=== PATIENT | female | born 1950 | race Caucasian/White ===

== ENCOUNTER → 2017-10-24 | Outpatient (CLI) | payer BC ==
--- NOTE | 2017-10-25 14:36 | MAMMOGRAPHY REPORT ---
BILATERAL DIGITAL SCREENING MAMMOGRAM TOMOSYNTHESIS WITH CAD: 10/24/2017 CLINICAL HISTORY: Routine screening. TECHNIQUE: Breast tomosynthesis in addition to standard 2D mammography was performed. Current study was also evaluated with a Computer Aided Detection (CAD) system. COMPARISON: Comparison is made to exams dated: 08/23/2016 mammogram, 08/26/2014 mammogram, 08/25/2013 m ammogram, 08/20/2012 mammogram, 07/05/2011 mammogram, and 07/03/2010 mammogram - [facility]. BREAST COMPOSITION: There are scattered areas of fibroglandular density in both breasts. FINDINGS: No suspicious masses, calcifications, or areas of architectural distortion are noted in ei ther breast. There has been no significant interval change compared to prior exams. IMPRESSION: ACR BI-RADS CATEGORY 1: NEGATIVE There is no mammographic evidence of malignancy. A 1 year screening mammogram is recommended. The pa tient will receive written notification of the results. Approximately 10% of breast cancers are not detected with mammography. A negative mammographic report should not delay biopsy if a clinically suggestive mass is present. Deepa Rodriguez M.D. ah/:10/24/2017 12:47:10 Learning Coach: Madonna HUNT(R)(M), [facility] letter sent: Normal 1/2 BI-RADS Code: ACR BI-RADS Category 1: Negative
== END | disposition home or self-care (01) ==
LOC: C.MAMM 09:33
PROVIDERS: ATTEND Family Medicine
DX: Z12.31 Encounter for screening mammogram for malignant neoplasm of breast (principal)

== ENCOUNTER 2024-12-08 12:56 | Inpatient (IN) ==
[2024-12-08 13:32] LABS: Hematocrit (blood only) 38.4 % (37.0-47.0); Hemoglobin 13.6 g/dl (12.0-16.0); Mean Corpuscular Hemoglobin 29.1 pg (25.0-34.0); Mean Corpuscular Hgb Conc 35.4 g/dL (32.0-36.0); Mean Corpuscular Volume 82.1 fL (80.0-100.0); Mean Platelet Volume 9.1 fL (9.4-12.4); Nucleated RBC # (auto) 0.02 K/uL (0.00-0.12); Nucleated RBC % (auto) 0.1 %; Platelet Count 701 K/uL (130-400); RDW Standard Deviation 38.3 fL (36.4-46.3); Red Blood Count 4.68 M/uL (4.20-5.40); White Blood Count 34.81 K/ul (4.8-10.8)
[2024-12-08 13:39] LABS: Albumin Level 3.8 gm/dl (3.4-5.0); Bilirubin,Total 0.6 mg/dl (0.2-1.0); Calcium 9.1 mg/dl (8.6-10.3); Potassium 3.6 mmol/L (3.5-5.1)
[2024-12-08 13:44] LABS: Partial Thromboplastin Ratio 0.9; Partial Thromboplastin Time 23 Seconds (21-31); Prothrombin Time 10.9 Seconds (9.0-12.0)
[2024-12-08 13:45] LABS: Albumin Globulin Ratio 1.2 (0.9-2); BUN Creatinine Ratio 19.1 (10-20); Globulin 3.2 gm/dl (2.5-4.0)
[2024-12-08 13:48] LABS: Basophils # (auto) 0.07 K/uL (0.00-0.20); Basophils % (auto) 0.2 %; Eosinophils # (auto) 0.04 K/uL (0.00-0.50); Eosinophils % (auto) 0.1 %; Immature Granulocytes # (auto) 0.27 K/uL (0.01-0.20); Immature Granulocytes % (auto) 0.8 %; Lymphocytes # (auto) 1.83 K/uL (1.20-3.40); Lymphocytes % (auto) 5.3 %; Monocytes # (auto) 1.94 K/uL (0.11-0.59); Monocytes % (auto) 5.6 %; Neutrophils # (auto) 30.66 K/uL (1.40-6.50)
[2024-12-08 13:50] LABS: Troponin I High Sensitivity 29.4 pg/ml (0-14)
[2024-12-08 13:52] LABS: Acanthocytes 1+; Pappenheimer Bodies 1+; Polychromasia 1+; Schistocytes 1+
--- NOTE | 2024-12-08 13:52 | XRay Report ---
XR chest 1V not portable CLINICAL HISTORY: Chest pain, nonspecific COMPARISON STUDY: None FINDINGS: Single view chest demonstrates patchy airspace opacities in the left lung base suspicious f or infectious or inflammatory infiltrate. There is obscuration of the right cardiophrenic angle which is commonly associated with either fibrosis or fatty deposition. The upper lung zones are hyperlucen t with slight flattening of the diaphragm to the small cardiac silhouette suggesting a component of C OPD. There is no pneumothorax. There is no significant atelectasis. There is no pulmonary vascular co ngestion. Surgical clips are identified in the left upper quadrant and in the right upper quadrant. IMPRESSION: Probable COPD. Patchy left basilar infiltrate suspicious for infectious or inflammatory process. ACT 112: Negative or not required by law. Electronically signed by: Inna Amezcua M.D. 12/08/2024 1:50 PM
[2024-12-08] MEDS: ACETAMINOPHEN 500 MG TAB PO STA (14:04)
[2024-12-08] MEDS: SODIUM CHLORIDE 0.9% 2,000 ML IV ONE (14:06)
[2024-12-08 14:21] LABS: HCO3 VBG 25 mmol/L; Oxygen Saturation VBG < 60.0 %; PCO2 VBG 38 mmHg (38-50); PO2 VBG < 20 mmHg; pH VBG 7.43 (7.36-7.41)
[2024-12-08] MEDS: AZITHROMYCIN 250 MG TAB PO ONE (14:27)
[2024-12-08] MEDS: CEFEPIME 2000MG 2,000 MG/20 ML SYR IV STA (14:28)
[2024-12-08 15:31] LABS: Adenovirus PCR Not Detected (NotDetected); Bordetella parapertussis PCR Not Detected (NotDetected); Bordetella pertussis PCR Not Detected (NotDetected); Chlamydia pneumoniae PCR Not Detected (NotDetected); Coronavirus 229E PCR Not Detected (NotDetected); Coronavirus CoV-2 (COVID19)PCR Not Detected (NotDetected); Coronavirus HKU1 PCR Not Detected (NotDetected); Coronavirus NL63 PCR Not Detected (NotDetected); Coronavirus OC43PCR DETECTED (NotDetected); Human Metapneumovirus PCR Not Detected (NotDetected); Influenza A PCR Not Detected (NotDetected); Influenza B PCR Not Detected (NotDetected); Mycoplasma pneumoniae PCR Not Detected (NotDetected); Parainfluenza Virus 1 PCR Not Detected (NotDetected); Parainfluenza Virus 2 PCR Not Detected (NotDetected); Parainfluenza Virus 3 PCR Not Detected (NotDetected); Parainfluenza Virus 4 PCR Not Detected (NotDetected); Respiratory Syncytial VirusPCR Not Detected (NotDetected); Rhinovirus/Enterovirus PCR Not Detected (NotDetected)
[2024-12-08] MEDS: MAGNESIUM SULFATE / D5W 1 GM/100 ML BAG IV SCH (15:49)
[2024-12-08 16:05] LABS: Appearance Urine Clear (Clear); Bacteria Urine Automated None Seen (None Seen); Bilirubin Urine Negative (Negative); Blood Urine 1+ (Negative); Color Urine Yellow; Epithelial Cell Urine Auto 0-2 /hpf (0-2); Glucose Urine UA Negative (Negative); Hyaline Casts Urine Present /lpf (None Presnt); Ketones Urine Trace (Negative); Leukocyte Esterase Urine 1+ (Negative); Nitrite Urine Negative (Negative); Protein Urine Trace (Negative); RBC Urine Automated 0-2 /hpf (0-2); Specific Gravity Urine 1.015 (1.000-1.030); Urobilinogen Urine Negative (Negative); WBC Urine Automated 0-5 /hpf (0-5); pH Urine 5.5 (4.5-7.5)
--- NOTE | 2024-12-08 16:17 | History & Physical Report ---
Date of Service December 08, 2024 Assessment & Plan (1) Acute sepsis: (2) Left lower lobe pneumonia: (3) Coronavirus infection: (4) Demand ischemia: (5) Hypomagnesemia: (6) COPD suggested by initial evaluation: (7) Hypertension: Plan Patient 74-year-old female presents with acute sepsis with organ dysfunction as evidenced by demand ischemia due to a secondary bacterial left lower lobe pneumonia that most likely initially started as a coronavirus infection. Patient does have imaging suggestive of COPD and would be high risk for further deterioration and requires hospital level care. Admit to the hospital in a monitored setting Antibiotics for community-acquired pneumonia Antitussives and mucolytics Replace magnesium Follow laboratory studies and blood cultures Oxygen as needed Echocardiogram to evaluate cardiac function in the setting of demand ischemia long-term hypertension Continue outpatient medications as ordered Discussed advanced directives with the patient at bedside, conditional code, patient would not want to be intubated History of Present Illness Chief Complaint: Cough, weak, generalized ill feeling Primary Care Provider: Ghislaine Cunningham DO Patient is a 74-year-old female presents to the emergency room with above complaints. In the emergency room was noted to have significant leukocytosis and hypomagnesemia and imaging consistent with a left lower lobe pneumonia. She was referred to our service for inpatient care. Time my evaluation patient is feeling little bit better after 2 L of IV fluids. Current blood pressure initially was low but has responded well to fluid resuscitation. She states about 2 weeks ago she started feeling weak, rundown, headaches, generalized malaise and generalized ill feeling. No real documented fevers but just really did not seem like she was getting much better. 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 In the emergency room her O2 sat was satisfactory on room air but these findings were concerning. Time my evaluation patient denies any shortness of breath. No chest pain. She states that she is had these above complaints. Confirms that she has not had any known fevers. Does have a cough that did just start to have some yellow purulent sputum but no blood in the sputum. Her appetite has been decreased but has been drinking plenty of fluids. No changes in her bowel or bladder habits. No swelling in her hands arms legs or feet. 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 is at bedside and confirms history. Patient does report a very remote history of smoking. Quit 50 years ago. Has never had any formal diagnosis of COPD. She reports that she has never needed inhalers or even needed them when she has had upper respiratory infections. Overall she feels that she is fairly healthy. Treated really only for some high blood pressure. Allergies Allergy/AdvReac Type Severity Reaction Status Date / Time No Known Allergies Allergy Unverified 12/08/24 14:03 Home Medications Medication Instructions Recorded Confirmed Type aspirin 81 mg capsule 81 mg PO DAILY 12/08/24 12/08/24 History atorvastatin 40 mg tablet 40 mg PO HS 12/08/24 12/08/24 History cholecalciferol (vitamin D3) 50 50 mcg PO DAILY 12/08/24 12/08/24 History mcg (2,000 unit) capsule (Vitamin D3) losartan 100 mg tablet 100 mg PO HS 12/08/24 12/08/24 History Past Med/Surg History Problem List (Updated 12/08/24 @ 16:20 by Ralph Chiang DO) COPD suggested by initial evaluation Hypomagnesemia Demand ischemia Coronavirus infection Left lower lobe pneumonia Acute sepsis Dyslipidemia Hypertension Social History (Updated 12/08/24 @ 16:15 by Ralph Chiang DO) Smoking Status: Former smoker Feels Safe at Home: Yes Review of Systems Review of Systems: Pertinent positive and negative review of systems as mentioned in the HPI Physical Exam Physical Exam: Constitutional: Alert, ill in appearance, nontoxic HEENT: Mucous membranes moist. Sclera clear Neck: Soft, no adenopathy Lungs: Decreased breath sounds, prolonged expiratory phase, crackles, rhonchi, rales and dullness in left lower lobe CV: S1-S2, regular, tachycardic Abdomen: Soft, nontender, nondistended Extremities: No significant edema Musculoskeletal: No significant joint tenderness Neuro: No focal deficits Psych: Cooperative, normal mood Results & Data Results & Data Vital Signs (Past 12 Hours) Vital Signs Temp Pulse Pulse Resp BP BP Pulse Ox 12/08/24 15:33 92 12/08/24 15:30 127 H 22 99/61 L 92 12/08/24 15:00 121 H 14 129/55 L 93 12/08/24 14:00 38.7 C H 134 H 26 H 142/76 H 93 12/08/24 12:59 37.8 C H 139 H 20 181/81 H 92 O2 Del Method 12/08/24 15:33 Room Air 12/08/24 15:30 12/08/24 15:00 Room Air 12/08/24 14:00 Room Air 12/08/24 12:59 Room Air Diagnostic Findings Reviewed imaging, laboratory and diagnostic studies. Pertinent findings as below. Personally reviewed chest x-ray, hyperinflated lungs, early developing infiltrate left lower lobe WBCs 34.8 Hemoglobin 13.6 Platelets 701 Venous pH 7.43 Venous pCO2 38 Creatinine 0.94 Magnesium 1.4 Glucose 111 Initial troponin 29.4 Procalcitonin 0.14 Urinalysis negative for signs of infection Viral respiratory panel positive for coronavirus Personally reviewed EKG, sinus tachycardia with no acute ST-T wave changes, occasional PVC
--- NOTE | 2024-12-08 17:16 | Electrocardiogram Report ---
Test Reason : Blood Pressure : */* mmHG Vent. Rate : 129 BPM Atrial Rate : 129 BPM P-R Int : 138 ms QRS Dur : 64 ms QT Int : 272 ms P-R-T Axes : 63 68 82 degrees QTcB Int : 398 ms Sinus tachycardia with occasional Premature ventricular complexes Abnormal ECG No previous ECGs available Confirmed by Mele Matthews ([id number]) on 12/08/2024 5:16:08 PM Referred By: REFERRED SELF Confirmed By: Mele Matthews
[2024-12-08] MEDS ORDERED: POLYETHYLENE (MIRALAX) 17 GM PACK PO PRN (17:36)
[2024-12-08] MEDS ORDERED: ALUMINUM/MAGNESIUM SUSP 30 ML UDC PO PRN (17:36)
[2024-12-08] MEDS: HYDROcodone/HOMATROPINE SYRUP 5MG/1.5MG 5ML UDP PO PRN (18:04)
[2024-12-08] MEDS: cefTRIAXone SODIUM 2,000 MG/50 ML BAG IV SCH (18:12)
--- NOTE | 2024-12-08 19:33 | Emergency Department Note ---
History of Present Illness General Chief Complaint: Shortness of Breath/Dyspnea Stated Complaint: SOB, COUGH, SORE THROAT Time Seen by Provider: 12/08/24 13:48 History of Present Illness Provider Complaint: shortness of breath and cough Onset (ago): week(s) (2) Consistency/Duration: + progressively worsening Relieved By: + nothing Exacerbated By: + exertion and + coughing Context: + recent illness Associated symptoms: + fever, + sputum production and + chest congestion; no orthopnea or no hemoptysis Related Data Home oxygen amount: none Home Medications Medication Instructions Recorded Confirmed Type aspirin 81 mg capsule 81 mg PO DAILY 12/08/24 12/08/24 History atorvastatin 40 mg tablet 40 mg PO HS 12/08/24 12/08/24 History cholecalciferol (vitamin D3) 50 50 mcg PO DAILY 12/08/24 12/08/24 History mcg (2,000 unit) capsule (Vitamin D3) losartan 100 mg tablet 100 mg PO HS 12/08/24 12/08/24 History Allergies Allergy/AdvReac Type Severity Reaction Status Date / Time No Known Allergies Allergy Unverified 12/08/24 14:03 Past Med/Surg History Problem List (Updated 12/08/24 @ 19:41 by Vinny Soriano MD) COPD suggested by initial evaluation (Acute) Hypomagnesemia Demand ischemia Coronavirus infection Left lower lobe pneumonia (Acute) Acute sepsis Medical History Dyslipidemia Hypertension Social History Smoking Status: Never smoker Second Hand Exposure: No; Do You Dip or Chew Tobacco: No; Hx Alcohol Use: Yes Alcohol type: wine Hx Substance Use: No Preferred Language: [employer] Required: No Beliefs That Will Affect Care: None Current Living Situation: Spouse Other Information That Helps Us Care for You: No Feels Safe at Home: Yes Safety Concerns: Feels Safe At This Time Assistive Devices: Glasses Physical Exam 2 Vital Signs: Vital Signs - 24 hr 12/08/24 12:59 12/08/24 14:00 12/08/24 15:00 Temperature 37.8 C H 38.7 C H Temperature Source Temporal Artery Sc an Oral Pulse Rate 139 H Pulse Rate [Left F anuradha] 134 H 121 H Pulse Rhythm Regular Pulse Strength Normal Respiratory Rate 20 26 H 14 Respiratory Effort / Characteristics Non-Labored Sponta neous Respiratory Depth Normal Blood Pressure 181/81 H Blood Pressure [Ri ght Arm] 142/76 H 129/55 L Blood Pressure Taylor n 114 Blood Pressure Taylor n [Right Arm] 98 79 Blood Pressure Pos ition [Right Arm] Sitting Semi-fowlers Pulse Oximetry 92 93 93 Oxygen Delivery Me thod Room Air Room Air Room Air Sepsis Recent Feve r Within 48 Hours No Sepsis New/Unexpla ined Change in Men amee Status N/A Sepsis Action Take n by Nursing No Action Required 12/08/24 15:30 12/08/24 15:33 12/08/24 16:00 Temperature Temperature Source Pulse Rate 123 H Pulse Rate [Left F anuradha] 127 H Pulse Rhythm Pulse Strength Respiratory Rate 22 14 Respiratory Effort / Characteristics Non-Labored Sponta neous Respiratory Depth Normal Blood Pressure 120/56 L Blood Pressure [Ri ght Arm] 99/61 L Blood Pressure Taylor n 76 Blood Pressure Taylor n [Right Arm] 73 Blood Pressure Pos ition [Right Arm] Semi-fowlers Pulse Oximetry 92 92 93 Oxygen Delivery Me thod Room Air Sepsis Recent Feve r Within 48 Hours Sepsis New/Unexpla ined Change in Men amee Status Sepsis Action Take n by Nursing Physical Exam: Physical Exam HENT: Exam performed. - Head: Normocephalic and atraumatic. EYES: Conjunctivae and EOM are normal. Right eye exhibits no discharge. Left eye exhibits no discharge. No scleral icterus. NECK: Normal range of motion. Neck supple. No JVD present. CV: Tachycardia rate, regular rhythm, normal heart sounds and intact distal pulses. There is no peripheral edema. Palpable radial pulses bue. PULM/CHEST: Mild rhonchi bilaterally. ABD: The abdomen is soft. There is no tenderness. NEURO: Motor and sensation grossly intact. SKIN: Skin is warm and dry. He is not diaphoretic. PSYCH: normal mood and affect. Behavior is normal. Judgment and thought content normal. Course Course 1348: The patient was evaluated in room B11. A complete history and physical exam was performed Cardiac monitoring: An order was placed for continuous cardiac monitoring. The monitor shows a rate of 120 with sinus tachycardia rhythm interpreted by me Patient was seen during a time of extreme volume and extreme acuity in the emergency department. Nursing triage protocols were initiated and labs were drawn by protocol in the triage area. Patient tachycardic febrile and labs from triage showed a white blood cell count of 34.8. Sepsis protocols were initiated. 1510: Vital signs stable. Imaging shows left-sided infiltrate. Labs show a white count of 34.81. High-sensitivity troponin elevated. Lactic acid is 2. Magnesium 1.4. [facility] Cefepime and azithromycin ordered for the patient. BioFire pending. Administered Medications Hydrocodone Bit/Homatropine Methylb (Hydrocodone/Homatropine Syrup 5mg/1.5mg 5ml Udp) 5 ml PO Q6H PRN PRN Reason: Cough Stop: 12/22/24 17:35 Last Admin: 12/08/24 18:04 Dose: 5 ml Documented By: JR Magnesium Sulfate/Dextrose (Magnesium Sulfate / D5w) 1 gm in 100 mls @ 50 mls/hr IV Q2H MARCIE Stop: 12/08/24 23:44 Last Admin: 12/08/24 17:53 Dose: 50 mls/hr Documented By: Infusion: 12/08/24 17:53 Dose: Infused Documented By: Admin: 12/08/24 15:49 Dose: 50 mls/hr Documented By: BILL Ceftriaxone Sodium (Rocephin) 2,000 mg in 50 mls @ 100 mls/hr IV Q24H MARCIE; Protocol Stop: 12/13/24 17:59 Last Infusion: 12/08/24 18:48 Dose: Infused Documented By: Admin: 12/08/24 18:12 Dose: 100 mls/hr Documented By: JR Discontinued Medications Acetaminophen (Acetaminophen 500 Mg Tab) 1,000 mg PO NOW STA Stop: 12/08/24 13:28 Last Admin: 12/08/24 14:04 Dose: 1,000 mg Documented By: JUAN Azithromycin (Azithromycin 250 Mg Tab) 500 mg PO NOW ONE Stop: 12/08/24 14:00 Last Admin: 12/08/24 14:27 Dose: 500 mg Documented By: JUAN Sodium Chloride (Nss) 2,000 mls @ 999 mls/hr IV .Q2H1M ONE Stop: 12/08/24 15:47 Last Infusion: 12/08/24 16:21 Dose: Infused Documented By: Admin: 12/08/24 14:06 Dose: 999 mls/hr Documented By: JUAN Cefepime HCl (Maxipime 2000mg) 2,000 mg in 20 mls @ 5 mls/min IV NOW STA; Protocol Stop: 12/08/24 13:50 Last Admin: 12/08/24 14:28 Dose: 5 mls/min Documented By: UJAN Medical Decision Making Laboratory Data Attestation: I reviewed the patient's lab results. 12/08/24 13:10 12/08/24 13:10 Lab Results 12/08/24 12/08/24 12/08/24 Range/Units 13:10 14:13 15:27 WBC 34.81 H* (4.8-10.8) K/ul RBC 4.68 (4.20-5.40) M/uL Hgb 13.6 (12.0-16.0) g/dl Hct 38.4 (37.0-47.0) % MCV 82.1 (80.0-100.0) fL MCH 29.1 (25.0-34.0) pg MCHC 35.4 (32.0-36.0) g/dL RDW Std Deviation 38.3 (36.4-46.3) fL RDW Coeff of Nathaniel 13.0 (11.5-14.5) % Plt Count 701 H (130-400) K/uL MPV 9.1 L (9.4-12.4) fL Immature Gran % (Auto) 0.8 % Neut % (Auto) 88.0 % Lymph % (Auto) 5.3 % [place] % (Auto) 5.6 % Eos % (Auto) 0.1 % Baso % (Auto) 0.2 % Neut # (Auto) 30.66 H (1.40-6.50) K/uL Lymph # (Auto) 1.83 (1.20-3.40) K/uL [place] # (Auto) 1.94 H (0.11-0.59) K/uL Eos # (Auto) 0.04 (0.00-0.50) K/uL Baso # (Auto) 0.07 (0.00-0.20) K/uL Immature Gran # (Auto) 0.27 H (0.01-0.20) K/uL Absolute Nucleated RBC 0.02 (0.00-0.12) K/uL Nucleated RBC % (auto) 0.1 % Polychromasia 1+ Pappenheimer Bodies 1+ Acanthocytes (Spur) 1+ Schistocytes 1+ PT 10.9 (9.0-12.0) Seconds INR 1.0 (0.9-1.1) APTT 23 (21-31) Seconds PTT Ratio 0.9 VBG pH 7.43 H (7.36-7.41) VBG pCO2 38 (38-50) mmHg VBG pO2 < 20 mmHg VBG HCO3 25 mmol/L VBG O2 Saturation < 60.0 % VBG Base Excess 1.0 mEq/L Sodium 140 (136-145) mmol/L Potassium 3.6 (3.5-5.1) mmol/L Chloride 105 (98-107) mmol/L Carbon Dioxide 24 (21-32) mmol/L Anion Gap 11 (3-11) BUN 18 (6-23) mg/dl Creatinine 0.94 (0.6-1.2) mg/dl Est Cr Clr Drug Dosing 48.0 ml/min eGFR 64.07 BUN/Creatinine Ratio 19.1 (10-20) Glucose 111 H (70-99(Fasting)) mg/dl Lactate 2.0 (0.4-2.0) mmol/L Calcium 9.1 (8.6-10.3) mg/dl Magnesium 1.4 L (1.7-2.4) mg/dl Total Bilirubin 0.6 (0.2-1.0) mg/dl AST 24 (13-39) U/L ALT 25 (7-52) U/L Alkaline Phosphatase 94 (34-104) U/L Troponin I High Sens 29.4 H (0-14) pg/ml Total Protein 7.0 (6.0-8.3) gm/dl Albumin 3.8 (3.4-5.0) gm/dl Globulin 3.2 (2.5-4.0) gm/dl Albumin/Globulin Ratio 1.2 (0.9-2) Procalcitonin 0.14 (0-0.5) ng/ml Urine Color Yellow Urine Appearance Clear (Clear) Urine pH 5.5 (4.5-7.5) Ur Specific [place] 1.015 (1.000-1.030) Urine Protein Trace H (Negative) Urine Glucose (UA) Negative (Negative) Urine Ketones Trace H (Negative) Urine Blood 1+ H (Negative) Urine Nitrite Negative (Negative) Urine Bilirubin Negative (Negative) Urine Urobilinogen Negative (Negative) Ur Leukocyte Esterase 1+ H (Negative) Urine WBC (Auto) 0-5 (0-5) /hpf Urine RBC (Auto) 0-2 (0-2) /hpf U Hyaline Cast (Auto) 11-20 H (0-2) /lpf U Epithel Cells (Auto) 0-2 (0-2) /hpf Urine Bacteria (Auto) None Seen (None Seen) Hyaline Casts Present A (None Presnt) /lpf Adenovirus (PCR) Not Detected (NotDetected) B. pertussis DNA (PCR) Not Detected (NotDetected) B.parapertussis DNA PCR Not Detected (NotDetected) C. pneumoniae DNA (PCR) Not Detected (NotDetected) Coronavirus OC43 (PCR) DETECTED A (NotDetected) Coronavirus HKU1 (PCR) Not Detected (NotDetected) Coronavirus 229E (PCR) Not Detected (NotDetected) SARS-CoV-2 (PCR) Not Detected (NotDetected) Coronavirus NL63 (PCR) Not Detected (NotDetected) Human Metapneumovir PCR Not Detected (NotDetected) Influenza Type A (PCR) Not Detected (NotDetected) Influenza Type B (PCR) Not Detected (NotDetected) M. pneumoniae (PCR) Not Detected (NotDetected) Parainfluenza 1 (PCR) Not Detected (NotDetected) Parainfluenza 2 (PCR) Not Detected (NotDetected) Parainfluenza 3 (PCR) Not Detected (NotDetected) Parainfluenza 4 (PCR) Not Detected (NotDetected) RSV (PCR) Not Detected (NotDetected) Entero/Rhino (PCR) Not Detected (NotDetected) 12/08/24 Range/Units 15:46 WBC (4.8-10.8) K/ul RBC (4.20-5.40) M/uL Hgb (12.0-16.0) g/dl Hct (37.0-47.0) % MCV (80.0-100.0) fL MCH (25.0-34.0) pg MCHC (32.0-36.0) g/dL RDW Std Deviation (36.4-46.3) fL RDW Coeff of Nathaniel (11.5-14.5) % Plt Count (130-400) K/uL MPV (9.4-12.4) fL Immature Gran % (Auto) % Neut % (Auto) % Lymph % (Auto) % [place] % (Auto) % Eos % (Auto) % Baso % (Auto) % Neut # (Auto) (1.40-6.50) K/uL Lymph # (Auto) (1.20-3.40) K/uL [place] # (Auto) (0.11-0.59) K/uL Eos # (Auto) (0.00-0.50) K/uL Baso # (Auto) (0.00-0.20) K/uL Immature Gran # (Auto) (0.01-0.20) K/uL Absolute Nucleated RBC (0.00-0.12) K/uL Nucleated RBC % (auto) % Polychromasia Pappenheimer Bodies Acanthocytes (Spur) Schistocytes PT (9.0-12.0) Seconds INR (0.9-1.1) APTT (21-31) Seconds PTT Ratio VBG pH (7.36-7.41) VBG pCO2 (38-50) mmHg VBG pO2 mmHg VBG HCO3 mmol/L VBG O2 Saturation % VBG Base Excess mEq/L Sodium (136-145) mmol/L Potassium (3.5-5.1) mmol/L Chloride (98-107) mmol/L Carbon Dioxide (21-32) mmol/L Anion Gap (3-11) BUN (6-23) mg/dl Creatinine (0.6-1.2) mg/dl Est Cr Clr Drug Dosing ml/min eGFR BUN/Creatinine Ratio (10-20) Glucose (70-99(Fasting)) mg/dl Lactate (0.4-2.0) mmol/L Calcium (8.6-10.3) mg/dl Magnesium (1.7-2.4) mg/dl Total Bilirubin (0.2-1.0) mg/dl AST (13-39) U/L ALT (7-52) U/L Alkaline Phosphatase (34-104) U/L Troponin I High Sens 83.9 H* D (0-14) pg/ml Total Protein (6.0-8.3) gm/dl Albumin (3.4-5.0) gm/dl Globulin (2.5-4.0) gm/dl Albumin/Globulin Ratio (0.9-2) Procalcitonin (0-0.5) ng/ml Urine Color Urine Appearance (Clear) Urine pH (4.5-7.5) Ur Specific [place] (1.000-1.030) Urine Protein (Negative) Urine Glucose (UA) (Negative) Urine Ketones (Negative) Urine Blood (Negative) Urine Nitrite (Negative) Urine Bilirubin (Negative) Urine Urobilinogen (Negative) Ur Leukocyte Esterase (Negative) Urine WBC (Auto) (0-5) /hpf Urine RBC (Auto) (0-2) /hpf U Hyaline Cast (Auto) (0-2) /lpf U Epithel Cells (Auto) (0-2) /hpf Urine Bacteria (Auto) (None Seen) Hyaline Casts (None Presnt) /lpf Adenovirus (PCR) (NotDetected) B. pertussis DNA (PCR) (NotDetected) B.parapertussis DNA PCR (NotDetected) C. pneumoniae DNA (PCR) (NotDetected) Coronavirus OC43 (PCR) (NotDetected) Coronavirus HKU1 (PCR) (NotDetected) Coronavirus 229E (PCR) (NotDetected) SARS-CoV-2 (PCR) (NotDetected) Coronavirus NL63 (PCR) (NotDetected) Human Metapneumovir PCR (NotDetected) Influenza Type A (PCR) (NotDetected) Influenza Type B (PCR) (NotDetected) M. pneumoniae (PCR) (NotDetected) Parainfluenza 1 (PCR) (NotDetected) Parainfluenza 2 (PCR) (NotDetected) Parainfluenza 3 (PCR) (NotDetected) Parainfluenza 4 (PCR) (NotDetected) RSV (PCR) (NotDetected) Entero/Rhino (PCR) (NotDetected) Imaging Data Attestation: I personally reviewed and interpreted this imaging study as follows: My Impression: Chest x-ray: Left-sided infiltrate Radiologist's Impression: Chest X-Ray 12/08/24 13:02 XR chest 1V not portable CLINICAL HISTORY: Chest pain, nonspecific COMPARISON STUDY: None FINDINGS: Single view chest demonstrates patchy airspace opacities in the left lung base suspicious for infectious or inflammatory infiltrate. There is obscuration of the right cardiophrenic angle which is commonly associated with either fibrosis or fatty deposition. The upper lung zones are hyperlucent with slight flattening of the diaphragm to the small cardiac silhouette suggesting a component of COPD. There is no pneumothorax. There is no significant atelectasis. There is no pulmonary vascular congestion. Surgical clips are identified in the left upper quadrant and in the right upper quadrant. IMPRESSION: Probable COPD. Patchy left basilar infiltrate suspicious for infectious or inflammatory process. ACT 112: Negative or not required by law. Electronically signed by: Inna Amezcua M.D. 12/08/2024 1:50 PM ECG Data Attestation: I personally reviewed and interpreted this ECG as follows: Interpretation: EKG #1 at 1307: Sinus tachycardia with a rate of 129. TX 138 QRS [address] elevation or ST depression. PVCs present. There is significant baseline wander and artifact. EKG #2 at 1402: Sinus tachycardia with rate of 117. TX 130 QRS [address] elevation or ST depression. [facility] Narrative 1348: The patient was evaluated in room B11. A complete history and physical exam was performed Cardiac monitoring: An order was placed for continuous cardiac monitoring. The monitor shows a rate of 120 with sinus tachycardia rhythm interpreted by me Patient was seen during a time of extreme volume and extreme acuity in the emergency department. Nursing triage protocols were initiated and labs were drawn by protocol in the triage area. Patient tachycardic febrile and labs from triage showed a white blood cell count of 34.8. Sepsis protocols were initiated. 1510: Vital signs stable. Imaging shows left-sided infiltrate. Labs show a white count of 34.81. High-sensitivity troponin elevated. Lactic acid is 2. Magnesium 1.4. [facility] Cefepime and azithromycin ordered for the patient. BioFire pending. Impression & Plan Left lower lobe pneumonia, COPD suggested by initial evaluation Discharge Plan Visit Data Chief Complaint: Shortness of Breath/Dyspnea Stated Complaint: SOB, COUGH, SORE THROAT ED Provider: Vinny Soriano Discharge Problem: Left lower lobe pneumonia, COPD suggested by initial evaluation Patient Disposition: Admitted As Inpatient Discharge Instructions Interventions: ED Discharge Assessment Last Done: 12/08/24 17:13
[2024-12-08] MEDS: ALBUT/IPRATROP 3MG/0.5MG NEB 3 ML VIAL NEB SCH (19:41)
[2024-12-08] MEDS: LOSARTAN POTASSIUM 50 MG TAB PO SCH (20:08)
[2024-12-08] MEDS: ATORVASTATIN 40 MG TAB PO SCH (20:08)
[2024-12-08] MEDS: DOXYCYCLINE HYCLATE 100 MG CAP PO SCH (20:08)
[2024-12-08] MEDS: guaiFENesin 600 MG TABCR PO SCH (20:08)
--- OUTSIDE RECORDS SUMMARY | 2024-12-08 20:54 | External Medical Summary | Summary of Care ---
Author Name Unknown Organization [facility] Address [address] [place] [address] Phone [phone] Care Team Providers Care Electrolysist Name Role Phone AdilsonGhislaine tay Ken WARD Primary Care Provider [phone] Reason for Visit * Reason Onset Date Comments Medication Administration prolia Medication Administration 09/08/2024 Prolia * Precert (Within 30 days (routine)) - Closed Specialty Diagnoses / Procedures Referred By Contac t Referred To Contact Rheumatology Diagnoses Age-related osteoporosis without current pathological fracture Procedures [place] DENOSUMAB INJECTION Jovanny Vazquez MD [facility] [place] [address] Phone: tel: fax: Jovanny Vazquez MD [address] [place] [address] [place] [address] Phone: tel: fax: Referral ID Status Reason Start Date Expiration Date V isits Requested Visits Authorized [id number] Closed Precert 02/05/2024 02/03/2025 2 2 Encounter Details Date Type Department Care Team (Late st Contact Info) Description 09/08/2024 9:30 AM EST Nurse Only Rheumatology [place] [id number] Geoff Mcnamara [place] [address] Pf, Nurse Rheum [facility] [place] [address] Medication Administration (prolia); Medica... Allergies No known active allergiesdocumented as of this encounter (statuses as of 09/08/2024) Medications aspirin enteric coated 81 MG TBECIndications:H TN, goal below 140/90 Take 1 Tablet by mouth in the morning. 100 Tab 3 7 Active Denosumab 60 MG/ML Subcutaneous Solution Inject 60 mg under the skin once. Active Cetirizine HCl 10 MG Oral Tablet (ZyrTEC)Indicatio ns:Idiopathic urticaria Take 1 Tab by mouth daily. 90 Tab 3 1 Active Triamcinolone Acetonide 0.1 % External Cream (Aristocort) 3 Active Vitamin D 50 MCG (1999 UT) Oral Capsule Take 2,000 Units by mouth in the morning. Active hydrOXYzine HCl 25 MG Oral TabletIndications :Pruritic dermatitis Take 1 tablet by mouth every 6 hours if needed for itching. 40 Tablet 3 4 Active Losartan Potassium 100 MG Oral Tablet (Cozaar)Indicatio ns:HTN, goal below 140/90 TAKE 1 TABLET BY MOUTH ONCE DAILY 90 Tablet 1 4 Active Atorvastatin Calcium 40 MG Oral Tablet (Lipitor)Indicati ons:Dyslipidemia, goal LDL below 130 TAKE 1 TABLET BY MOUTH EVERY MORNING 90 Tablet 3 4 Active documented as of this encounter (statuses as of 09/08/2024) Active Problems Problem Noted Date Diagnosed Date HTN, goal below 140/90 02/08/2017 Dyslipidemia, goal LDL below 130 01/10/2017 High risk for fracture due to osteoporosis by DE XA scan 09/30/2015 documented as of this encounter (statuses as of 09/08/2024) Resolved Problems Problem Noted Date Diagnosed Date Resolved Date Senile osteoporosis 10/18/2020 01/07/20 24 Prediabetes 12/03/2017 12/18/2018 Overview: Per Prediabetes protocol #1 Well adult exam 03/27/2017 12/18/2018 Overview (03/27/2017): 04/06 colonoscopy 1mm polyp PATH PEND Non-toxic multinodular goiter 12/26/2011 12/18/2018 documented as of this encounter (statuses as of 09/08/2024) Immunizations Name Administration Dates Next Due COVID-19 mRNA, LNP-s, No Pre serve, 2-Dose Series (Pfizer) 01/07/2021,12/17/2020 Meningococcal B, OMV AJD, 2- Dose Series (BEXSERO) 12/26/2021,03/15/2020,12/25/2019 Meningococcal MCV4O Conjugat e Vaccine (Menveo) 01/01/2023 Pneumococcal Conjugate Vacc, 13 Valent (Prevnar) 02/08/2017 Pneumococcal Polysaccharide PPV23 (Pneumovax) 12/18/2018 Seasonal Influenza Vac., MDV , IM, 0.5 mL (Fluzone) 08/17/2014 Seasonal Influenza, High Dos e, Trivalent, PF, IM (Fluzone HD) 08/07/2024 Seasonal Influenza, PF, 6 M & above, IM , (FluLaval or Fluzone) 08/28/2018,08/17/2017 Seasonal Influenza, Quadriva lent Hd (Fluzone Hd) 08/02/2023,07/28/2022,07/13/2021 Seasonal Influenza, Quadriva lent Hd, 65+ Yrs 07/28/2020 Seasonal Influenza, Quadriva lent, No Preserve, IM 07/10/2019,08/04/2016,08/30/2015 TDAP (age 10 and older)(Boostrix) 02/21/2019 Varicella Zoster Vaccine (Adult) 07/10/2019,02/19 Zoster Vaccine Recombinant (Shingrix) 11/27/2019 ,07/10/2019 documented as of this encounter Social History Tobacco Use Types Packs/Day Years Used Date Smoking Tobacco: Former Cigarettes 0.5 30 1 11/21/1976 - 09/20/2007 Smokeless Tobacco: Never Tobacco Cessation:Counseling Given: Not Answered Alcohol Use Standard Drinks/Week Comments No 0 (1 standard drink = 0.6 oz pur e alcohol) PHQ-2 Answer Date Recorded PHQ Adult Total Score 0 07/29/2023 Hunger Vital Sign Answer Date Recorded Within the past 12 months, y ou worried that your food would run out before you got the money to buy more. Never true 07/24/20 22 Within the past 12 months, t he food you bought just didn't last and you didn't have money to get more. Never true 07/24/2022 Comments No Sex and Gender Information Value Date Recorded Sex Assigned at Female 07/24/2022 9:00 AM EDT Legal Sex Female 5:26 AM EST Gender Identity Female 07/24/2022 9:00 AM EDT Sexual Orientation Straight 07/24/2022 9: 00 AM EDT Occupation Industry Job Start Date Job End Date Retired Not on file Not on file Not on file documented as of this encounter Last Filed Vital Signs Vital Sign Reading Time Taken Comments Blood Pressure - - Pulse - - Temperature 36.4 C (97.5 F) 09/08/2024 9:11 AM ES T Respiratory Rate - - Oxygen Saturation - - Inhaled Oxygen Concentration - - Weight - - Height - - Body Mass Index - - documented in this encounter Patient Instructions * Patient Instructions* Essence Echevarria LPN - 09/08/2024 9:15 AM EST MEDICATION GUIDE Prolia (WV-dante-a) (denosumab) Injection Read the Medication Guide that comes with Prolia before you start taking it and each time you get arefill. There may be new information. This Medication Guide does not take the place of talking withyour doctor about your medical condition or treatment. Talk to your doctor if you have any questions about Prolia. What is the most important information I should know about Prolia? Prolia can cause serious side effects includin. Low calcium levels in your blood (hypocalcemia). Prolia may lower the calcium levels in your blood. If you have low blood calcium before you start receiving Prolia, it may get worse during treatment. Your low blood calcium must be treated before you receive Prolia. Most people with low blood calcium levels do not have symptoms, but some people may have symptoms. Call your doctor right away if you have symptoms of low blood calcium such as: Spasms, twitches, or cramps in your muscles Numbness or tingling in your fingers, toes, or around your mouth Your doctor may prescribe calcium and vitamin D to help prevent low calcium levels in your blood while you take Prolia. Take calcium and vitamin D as your doctor tells you to. 2. Serious infections. Serious infections in your skin, lower stomach area (abdomen), bladder, or ear may happen if you take Prolia. Inflammation of the inner lining of the heart (endocarditis) due to an infection also mayhappen more often in people who take Prolia. You may need to go to the hospital for treatment if you develop an infection. Prolia is a medicine that may affect your immune system. People who have weakened immune system or take medicines that affect the immune system may have an increased risk for developing serious infections. Call your doctor right away if you have any of the following symptoms of infection: Fever or chills Skin that looks red or swollen and is hot or tender to touch Severe abdominal pain Frequent or urgent need to urinate or burning feeling when you urinate 3. Skin problems. Skin problems such as inflammation of your skin (dermatitis), rash, and eczema may happen if you take Prolia. Call your doctor if you have any of the following symptoms of skin problems that do not go away or get worse: Redness Itching Small bumps or patches (rash) Your skin is dry or feels like leather Blisters that ooze or become crusty Skin peeling 4. Severe jaw bone problems (osteonecrosis). Severe jaw bone problems may happen when you take Prolia. Your doctor should examine your mouth before you start Prolia. Your doctor may tell you to see your dentist before you start Prolia. It is important for you to practice good mouth care during treatment with Prolia. Call your doctor right away if you have any of these side effects. What is Prolia? Prolia is a prescription medicine used to treat osteoporosis (thinning and weakening of bone) in women after menopause (change of life) who Have an increased risk for fractures (broken bones). Cannot use another osteoporosis medicine or other osteoporosis medicines did not work well. Who should not receive Prolia? Do not take Prolia if you have been told by your doctor that your blood calcium level is too low. What should I tell my doctor before receiving Prolia? Before taking Prolia, tell your doctor if you: Have low blood calcium. Cannot take daily calcium and vitamin D. Had parathyroid or thyroid surgery (glands located in your neck). Have been told you have trouble absorbing minerals in your stomach or intestines (malabsorptionsyndrome). Have kidney problems or are on kidney dialysis. Plan to have dental surgery or teeth removed. Are or plan to become . Prolia may harm your unborn baby. Tell your doctor right away if you become while taking Prolia. Surveillance Program: Prolia is not intended for use in women. If you become while taking Prolia, talk to your doctor about enrolling with [employer] or call (g-049-92-[facility]). The purpose of this program is to collect information about women who have become while taking Prolia. Are breast-feeding or plan to breast-feed. It is not known if Prolia passes into your breast milk. You and your doctor should decide if you will take Prolia or breast-feed. You should not do both. Tell your doctor about all the medicines you take, including prescription and nonprescription drugs, vitamins, and herbal supplements. Know the medicines you take. Keep a list of medicines with you to show to your doctor or pharmacistwhen you get a new medicine. How will I receive Prolia? Prolia is an injection that will be given to you by a healthcare professional. Prolia is injected under your skin (subcutaneous). You will receive Prolia 1 time every 6 months. You should take calcium and vitamin D as your doctor tells you to while you receive Prolia. If you miss a dose of Prolia, you should receive your injection as soon as you can. Take good care of your teeth and gums while you receive Prolia. Bliss and floss your teeth regularly. Tell your dentist that you are receiving Prolia before you have dental work. What are the possible side effects of Prolia? Prolia may cause serious side effects. See What is the most important information I should know about Prolia? Long-term effects on bone: It is not known if the use of Prolia over a long period of time may cause slow healing of broken bones or unusual fractures. The most common side effects of Prolia are: Back pain Pain in your arms and legs High cholesterol Muscle pain Bladder infection These are not all the possible side effects of Prolia. For more information, ask your doctor or pharmacist. Call your doctor for medical advice about side effects. You may report side effects to FDA at 1-084-AOW-5559. How should I handle Prolia if I need to pick it up from a pharmacy? Keep Prolia in a refrigerator at 36F to 46F (2C to 8C) in the original carton. Do not freeze Prolia. When you remove Prolia from the refrigerator, Prolia must be kept at room temperature [up to 77F (25C)] in the original carton and must be used within 14 days. Do not keep Prolia at temperatures above 77F (25C). Warm temperatures will affect how Prolia works. Do not shake Prolia. Keep Prolia in the original carton to protect from light. Keep Prolia and all medicines out of reach of children. General information about Prolia Do not give Prolia to other people even if they have the same symptoms that you have. It may harm them. This Medication Guide summarizes the most important information about Prolia. If you would like more information, talk with your doctor. You can ask your doctor or pharmacist for information about Prolia that is written for health professionals. For more information, go to www.[employer] or call [employer] at . What are the ingredients in Prolia? Active ingredient: denosumab Inactive ingredients: sorbitol, acetate, polysorbate 20 (prefilled syringe only), Water for Injection ([facility]URSING HOME), and sodium hydroxide What is osteoporosis? Osteoporosis is a disease in which the bones become thin and weak, increasing the chance of having a broken bone. Osteoporosis usually causes no symptoms until a fracture happens. The most common fractures are in the spine (backbone). They can shorten height, even without causing pain. Over time, the spine can become curved or deformed and the body bent over. Fractures from osteoporosis can also happen in almost any bone in the body, for example: the wrist, rib, or hip. Once you have had a fracture, the chance for more fractures greatly increases. The following risk factors increase your chance of getting fractures from osteoporosis: Past broken bones from osteoporosis Very low bone mineral density (BMD) Frequent falls Limited movement, such as using a wheelchair Medical conditions likely to cause bone loss, such as some kinds of arthritis Taking steroid medicines called glucocorticoids, such as prednisone Other medicines that may cause bone loss, for example: seizure medicines (such as phenytoin), blood thinners (such as heparin), high doses of vitamin A What can I do to treat osteoporosis? There are many steps you can take to treat osteoporosis. Taking Prolia, along with calcium and vitamin D, may be one option for you. [employer] [place], [place] [address] This Medication Guide has been approved by the US Food and Drug Administration. 1xxxxxx - v1 Issued: 03/2010 documented in this encounter Progress Notes * Essence Echevarria LPN - 09/08/2024 9:[address] presents today for administration of Prolia. She understands the benefits and risksof this treatment. An educational pamphlet was given to the patient. Prolia 60 mg was administered subcutaneously. The patient tolerated the procedure without problems. She will return in 6 months for the next injection and evaluation. Essence Echevarria LPN documented in this encounter Nursing Notes * Essence Echevarria LPN - 09/08/2024 9:11 AM EST Chief Complaint Patient presents with Medication Administration prolia Patient denies being on any antibiotics, no current infections, no upcoming surgeries or dental procedures, no open wounds or sores, no current fractures. documented in this encounter Plan of Treatment Upcoming Encounters Date Type Department Care Team (Late st Contact Info) Description 01/12/2025 8:00 AM EDT Office Visit Family Practice [facility] [address] [place] [address] Ghislaine Cunningham DO [address] [place] [address] 03/10/2025 10:00 AM EDT Office Visit Rheumatology [place] [id number] [facility] [place] [address] Elizabeth Conklin CRNP [address] [place] [address] [place] [address] 07/05/2025 1:00 PM EDT Imaging Radiology, [address] [place], [place] [address] Scheduled Procedures Name Priority Associated Diagnoses Date/Ti me COLONOSCOPY FLEXIBLE PROXIMA L DIAGNOSTIC Recall History of colonic polyps Health Maintenance Due Date Last Done Comments Cologuard 1996 Sigmoidoscopy 1996 Fecal Occult Blood Test 10/27/2017 10/27/2016 MENINGOCOCCAL (MENACTRA/MENVEO) (2 - Risk 2-dose series) 02/26/2023 01/01/2023 Meningitis B Vaccine (Bexsero/Trumemba) (4 of 4 - Increased Risk Bexsero 2-dose series) 12/27/2023 12/26/2021, 03/15/2020, 12/25/2019 COVID-19 Vaccine ( season) 2024 01/07/2021, 12/17/2020 Adult Wellness Visit 07/29/2024 07/29/2023, 07/24/2022, 05/22/2021 Depression Screening 07/29/2024 07/29/2023 GFR 01/24/2025 01/25/2024, 0 05/2023, 04/10/2022, Additional history exists Mammogram 02/04/2025 02/05/2024, 06/22, 07/14/2021, Additional history exists DXA Scan 06/04/2025 06/04/2023, 05/21, 05/11/2019, Additional history exists Albumin/Creatinine Ratio 07/24/2025 07/24/2022 Colonoscopy 04/27/2027 04/27/2022, 070 05/2022, 03/27/2017, Additional history exists Colorectal Cancer Screening 04/27/2027 Lipid Panel 01/24/2029 01/25/2024, 040 05/2023, 04/10/2022, Additional history exists DTap/Tdap Vaccines (2 - Td or Tdap) 02/21/2029 02/21/2019 Pneumococcal Vaccine: 65+ Years Completed 12/18/2018, 02/08/2017 Zoster Vaccines Completed 11/27/2019, 06/22, 07/10/2019, Additional history exists RETIRED - COLONOSCOPY-EVERY 5 YRS AGES 18-100 Discontinued 04/27/2022, 04/27/2022, 03/27/2017, Additional history exists VITAMIN D LEVEL ONCE IN A LIFETIME-USE SMARTSET# [id number] Completed 02/28/2024, 01/26/2023, 05/08/2021, Additional history exists Influenza Vaccine (FLU shot) Completed 08/07/2024, 08/02/2023, 07/28/2022, Additional history exists HPV (Gardasil) Vaccine Aged Out No lo nger eligible based on patient's age to complete this topic Hepatitis B Vaccine Aged Out No longe r eligible based on patient's age to complete this topic documented as of this encounter Medical Devices Not on filedocumented as of this encounter Visit Diagnoses Diagnosis Senile osteoporosis- Primary documented in this encounter Administered Medications Inactive Administered Medications - up to 3 most recent administrations Medication Order MAR Action Action Date Dose Rate Site Denosumab (Prolia) subcut inj 60 mg 60 mg, Subcutaneous, ONCE, On Sat09/08/24 at 0930, For 1 doseIndications:Senile osteoporosis Given 09/08/2024 9:20 AM EST 60 mg Arm Left Upper documented in this encounter Care Teams Electrolysist Relationship Specialty Start Date End Date Ghislaine Cunningham DO [address] [place] [address] PCP - General Family Medicine 04/14/15 documented as of this encounter
--- OUTSIDE RECORDS SUMMARY | 2024-12-08 20:55 | External Medical Summary | Summary of Care ---
Author Name Unknown Organization [facility] Address [address] [facility] [place] [address] Phone [phone] Care Team Providers Care Manager Intermediate Name Role Phone Ghislaine Cunningham DO Primary Care Provider Encounter Details Date Type Department Care Team (Late st Contact Info) Description 08/07/2024 9:20 AM EDT Immunization Ancillary [address] [place] [address] [place] [address] [place] [address] Arrived Allergies No known active allergiesdocumented as of this encounter (statuses as of 08/07/2024) Medications Medication Sig Dispensed Refills Start Date End Date Status aspirin enteric coated 81 MG TBECIndications:HTN, goal below 140/90 Take 1 Tablet by mouth in the morning. 100 Tab 3 09/24/2017 Active Denosumab 60 MG/ML Subcutaneous Solution Inject 60 mg under the skin once. Active Cetirizine HCl 10 MG Oral Tablet (ZyrTEC)Indications:Id iopathic urticaria Take 1 Tab by mouth daily. 90 Tab 3 06/08/2021 Active Triamcinolone Acetonide 0.1 % External Cream (Aristocort) 01/17/2023 Active Vitamin D 50 MCG (2000 UT) Oral Capsule Take 2,000 Units by mouth in the morning. Active Atorvastatin Calcium 40 MG Oral Tablet (Lipitor)Indications:D yslipidemia, goal LDL below 130 TAKE 1 TABLET BY MOUTH EVERY MORNING 90 Tablet 1 03/24/2024 Active hydrOXYzine HCl 25 MG Oral TabletIndications:Prur itic dermatitis Take 1 tablet by mouth every 6 hours if needed for itching. 40 Tablet 3 05/14/2024 Active Losartan Potassium 100 MG Oral Tablet (Cozaar)Indications:HT N, goal below 140/90 TAKE 1 TABLET BY MOUTH ONCE DAILY 90 Tablet 1 07/20/2024 Active documented as of this encounter (statuses as of 08/07/2024) Active Problems Problem Noted Date Diagnosed Date HTN, goal below 140/90 02/08/2017 Dyslipidemia, goal LDL below 130 01/10/2017 High risk for fracture due to osteoporosis by DE XA scan 09/30/2015 documented as of this encounter (statuses as of 08/07/2024) Resolved Problems Problem Noted Date Diagnosed Date Resolved Date Senile osteoporosis 10/18/2020 01/07/20 24 Prediabetes 12/03/2017 12/18/2018 Overview: Per Prediabetes protocol #1 Well adult exam 03/27/2017 12/18/2018 Overview: 04/06 colonoscopy 1mm polyp PATH PEND Non-toxic multinodular goiter 12/26/2011 12/18/2018 documented as of this encounter (statuses as of 08/07/2024) Immunizations Name Administration Dates Next Due COVID-19 [...] 1 [birth year]/21/1976 - 09/20/2007 Smokeless Tobacco: Never Alcohol Use Standard Drinks/Week Comments No 0 [...] money to get more. Never true 07/24/2022 Sex and Gender Information Value Date Recorded Sex Assigned at Female 07/24/2022 9:00 AM EDT Gender Identity Female 07/24/2022 9:00 AM EDT Sexual Orientation Straight 07/24/2022 9: 00 AM EDT Job Start Date Occupation Industry Not on file Not on file Not on file documented as of this encounter Plan of Treatment Upcoming Encounters Date Type Department Care Team (Late st Contact Info) Description 09/08/2024 9:30 AM EST Nurse Only Rheumatology [place] [id number] [place] [address] Pf, Nurse Rheum [facility] [place] [address] 01/12/2025 8:00 AM EDT Office Visit Family Practice [address] [place] [address] Ghislaine Cunningham DO [address] [place] [address] 07/05/2025 1:00 PM EDT Imaging Radiology, [place] [id number] [facility] [place] [address] Scheduled Procedures Name Priority Associated Diagnoses Date/Ti me COLONOSCOPY FLEXIBLE PROXIMA L DIAGNOSTIC Recall History of colonic polyps Health Maintenance Due Date Last Done Comments Cologuard 1996 Sigmoidoscopy 1996 Fecal Occult Blood Test 10/27/2017 10/27/2016 MENINGOCOCCAL (MENACTRA/MENVEO) (2 - Risk 2-dose series) 02/26/2023 01/01/2023 Meningitis B Vaccine (Bexsero/Trumemba) (4 of 4 - Increased Risk Bexsero 2-dose series) 12/27/2023 12/26/2021, 03/15/2020, 12/25/2019 COVID-19 Vaccine (3 - season) 2024 01/07/2021, 12/17/2020 Influenza Vaccine (FLU shot) (#1) 2024 08/07/2024, 08/02/2023, 07/28/2022, Additional history exists Adult Wellness Visit 07/29/2024 07/29/2023, 07/24/2022, 05/22/2021 Depression Screening 07/29/2024 07/29/2023 GFR 01/24/2025 01/25/2024, 040 05/2023, 04/10/2022, Additional history exists Mammogram 02/04/2025 02/05/2024, 06/22, 07/14/2021, Additional history exists DXA Scan 06/04/2025 06/04/2023, 05/21, 05/11/2019, Additional history exists Albumin/Creatinine Ratio 07/24/2025 07/24/2022 Colonoscopy 04/27/2027 04/27/2022, 07/0 05/2022, 03/27/2017, Additional history exists Colorectal Cancer Screening 04/27/2027 Lipid Panel 01/24/2029 01/25/2024, 05/2023, 04/10/2022, Additional history exists DTap/Tdap Vaccines (2 - Td or Tdap) 02/21/2029 02/21/2019 Pneumococcal Vaccine: 65+ Years Completed 12/18/2018, 02/08/2017 Zoster Vaccines Completed 11/27/2019, 06/22, 07/10/2019, Additional history exists RETIRED - COLONOSCOPY-EVERY 5 YRS AGES 18-100 Discontinued 04/27/2022, 04/27/2022, 03/27/2017, Additional history exists VITAMIN D LEVEL ONCE IN A LIFETIME-USE SMARTSET# [id number] Completed 02/28/2024, 01/26/2023, 05/08/2021, Additional history exists HPV (Gardasil) Vaccine Aged Out No lo nger eligible based on patient's age to complete this topic Hepatitis B Vaccine Aged Out No longe r eligible based on patient's age to complete this topic documented as of this encounter Medical Devices Not on filedocumented as of this encounter Care Teams Manager Intermediate Relationship Specialty Start Date End Date Ghislaine Cunningham DO [address] [place] [address] PCP - General Family Medicine 04/14/15 documented as of this encounter
--- OUTSIDE RECORDS SUMMARY | 2024-12-08 20:55 | External Medical Summary | Summary of Care ---
Author Name Unknown Organization [facility] Address [address] [facility] [place] [address] Phone [phone] Care Team Providers Care Unit Receptionist Name Role Phone AdilsonGhislaine tay Ken WARD Primary Care Provider [phone] Encounter Details Date Type Department Care Team (Late st Contact Info) Description 07/02/2024 Telephone Rheumatology [facility] [address] [place] [address] Elizabeth Conklin CRNP [address] [place] [address] Allergies No known active allergiesdocumented as of this encounter (statuses as of 07/06/2024) Medications Medication Sig Dispensed Refills Start Date [...] Units by mouth in the morning. Active Losartan Potassium 100 MG Oral Tablet (Cozaar)Indications:HT N, goal below 140/90 TAKE 1 TABLET BY MOUTH ONCE DAILY 90 Tablet 1 01/14/2024 Active Atorvastatin Calcium 40 MG Oral Tablet (Lipitor)Indications:D yslipidemia, goal LDL below 130 TAKE 1 TABLET BY MOUTH EVERY MORNING 90 Tablet 1 03/24/2024 Active hydrOXYzine HCl 25 MG Oral TabletIndications:Prur itic dermatitis Take 1 tablet by mouth every 6 hours if needed for itching. 40 Tablet 3 05/14/2024 Active documented as of this encounter (statuses as of 07/06/2024) Active Problems Problem Noted Date Diagnosed Date HTN, goal below 140/90 02/08/2017 Dyslipidemia, goal LDL below 130 01/10/2017 High risk for fracture due to osteoporosis by DE XA scan 09/30/2015 documented as of this encounter (statuses as of 07/06/2024) Resolved Problems Problem Noted Date Diagnosed Date Resolved Date Senile osteoporosis 10/18/2020 01/07/20 24 Prediabetes 12/03/2017 12/18/2018 Overview: Per Prediabetes protocol #1 Well adult exam 03/27/2017 12/18/2018 Overview: 04/06 colonoscopy 1mm polyp PATH PEND Non-toxic multinodular goiter 12/26/2011 12/18/2018 documented as of this encounter (statuses as of 07/06/2024) Immunizations Name Administration Dates Next Due COVID-19 mRNA, LNP-s, No Pre serve, 2-Dose Series (Pfizer) 01/07/2021,12/17/2020 Meningococcal B, OMV AJD, 2- Dose Series (BEXSERO) 12/26/2021,03/15/2020,12/25/2019 Meningococcal MCV4O Conjugat e Vaccine (Menveo) 01/01/2023 Pneumococcal Conjugate Vacc, 13 Valent (Prevnar) 02/08/2017 Pneumococcal Polysaccharide PPV23 (Pneumovax) 12/18/2018 Seasonal Influenza, PF, 6 M & above, IM , (FluLaval or Fluzone) 08/28/2018,08/17/2017 Seasonal Influenza, Quadriva lent Hd (Fluzone Hd) 08/02/2023,07/28/2022,07/13/2021 Seasonal Influenza, Quadriva lent Hd, 65+ Yrs 07/28/2020 Seasonal Influenza, Quadriva lent, No Preserve, IM 07/10/2019,08/04/2016,08/30/2015 Seasonal Influenza, Trivalen t, (IIV3), with Preserv, (Fluzone) 08/17/2014 TDAP (age 10 and older)(Boostrix) 02/21/2019 Varicella [...] on file documented as of this encounter Miscellaneous Notes * Telephone Encounter - Lorraine Garcia OSA - 07/06/2024 10:48 AM EDT LMOM for patient to call to schedule dexa. * Telephone Encounter - Elizabeth Conklin CRNP - 07/02/2024 4:17 PM EDT Please contact patient to schedule DEXA scan on or after 06/04/2025. documented in this encounter Plan of Treatment Upcoming Encounters Date Type Department Care Team (Late st Contact Info) Description 07/31/2024 9:00 AM EDT [facility] [address] [place] [address] [place], Nurse Annual Wellness [place] [address] [place] [address] 09/08/2024 9:30 AM EST Nurse Only Rheumatology [address] [place] [address] Pf, Nurse Rheum [address] [place] [address] [place] [address] 01/12/2025 8:00 AM EDT Office Visit Family Practice [facility] [address] [place] [address] Ghislaine Cunningham DO [address] [place] [address] Scheduled Orders Name Type Priority Associated Diagnoses Orde r Schedule DEXA SCAN/BONE MINERAL AXIAL Medical Imaging Routine Senile osteoporosis Expected: 07/05/2025, Expires: 08/01/2025 Scheduled Procedures Name Priority Associated Diagnoses Date/Ti [...] 12/17/2020 Influenza Vaccine (FLU shot) (#1) 2024 08/02/2023, 07/28/2022, 07/13/2021, Additional history exists Adult Wellness Visit 07/29/2024 07/29/2023, 07/24/2022, 05/22/2021 Depression Screening 07/29/2024 07/29/2023 GFR 01/24/2025 01/25/2024, 04/0 05/2023, 04/10/2022, Additional history exists Mammogram 02/04/2025 02/05/2024, 06/22, 07/14/2021, Additional history exists DXA Scan 06/04/2025 06/04/2023, 05/21, 05/11/2019, Additional history exists Albumin/Creatinine Ratio 07/24/2025 07/24/2022 Colonoscopy 04/27/2027 04/27/2022, 07/0 05/2022, 03/27/2017, Additional history exists Colorectal Cancer Screening 04/27/2027 Lipid Panel 01/24/2029 01/25/2024, 04/0 05/2023, 04/10/2022, Additional history exists DTap/Tdap Vaccines (2 - Td or Tdap) 02/21/2029 02/21/2019 Pneumococcal Vaccine: 65+ Years Completed 12/18/2018, 02/08/2017 Zoster Vaccines Completed 11/27/2019, 06/22, 07/10/2019, Additional history exists RETIRED - COLONOSCOPY-EVERY 5 YRS AGES 18-100 Discontinued 04/27/2022, 04/27/2022, 03/27/2017, Additional history exists VITAMIN D LEVEL ONCE IN A LIFETIME-USE SMARTSET# [id number] Completed 02/28/2024, 01/26/2023, 05/08/2021, Additional history exists [...] Senile osteoporosis- Primary documented in this encounter Care Teams Unit Receptionist Relationship Specialty Start Date End Date Ghislaine Cunningham DO [address] [place] [address] PCP - General Family Medicine 04/14/15 documented as of this encounter
--- OUTSIDE RECORDS SUMMARY | 2024-12-08 20:55 | External Medical Summary | Summary of Care ---
Author Name Unknown Organization [facility] Address [address] [facility] [place] [address] Phone [phone] Care Team Providers Care Network Strategist Name Role Phone Alberto Palma DO Primary Care Provider [phone] Reason for Visit * Reason Comments eRx-Medication Refill Encounter Details Date Type Department Care Team (Late st Contact Info) Description 08/07/2024 Refill Family Practice [facility] [address] [place] [address] Alberto Palma DO [address] [place] [address] Dyslipidemia, goal LDL below 130 Allergies No known active allergiesdocumented as of this encounter (statuses as of 08/09/2024) Medications Medication Sig Dispensed Refills Start Date End Date Status aspirin enteric coated 81 MG TBECIndications:HT N, goal below 140/90 Take 1 Tablet by mouth in the morning. 100 Tab 3 09/24/2017 Active Denosumab 60 MG/ML Subcutaneous Solution Inject 60 mg under the skin once. Active Cetirizine HCl 10 MG Oral Tablet (ZyrTEC)Indication s:Idiopathic urticaria Take 1 Tab by mouth daily. 90 Tab 3 06/08/2021 Active Triamcinolone Acetonide 0.1 % External Cream (Aristocort) 01/17/2023 Active Vitamin D 50 MCG (2000 UT) Oral Capsule Take 2,000 Units by mouth in the morning. Active hydrOXYzine HCl 25 MG Oral TabletIndications: Pruritic dermatitis Take 1 tablet by mouth every 6 hours if needed for itching. 40 Tablet 3 05/14/2024 Active Losartan Potassium 100 MG Oral Tablet (Cozaar)Indication s:HTN, goal below 140/90 TAKE 1 TABLET BY MOUTH ONCE DAILY 90 Tablet 1 07/20/2024 Active Atorvastatin Calcium 40 MG Oral Tablet (Lipitor)Indicatio ns:Dyslipidemia, goal LDL below 130 TAKE 1 TABLET BY MOUTH EVERY MORNING 90 Tablet 3 08/09/2024 Active Atorvastatin Calcium 40 MG Oral Tablet (Lipitor)Indicatio ns:Dyslipidemia, goal LDL below 130 TAKE 1 TABLET BY MOUTH EVERY MORNING 90 Tablet 1 03/24/2024 08/09/2024 Discontinued documented as of this encounter (statuses as of 08/09/2024) Active Problems Problem Noted Date Diagnosed Date HTN, goal below 140/90 02/08/2017 Dyslipidemia, goal LDL below 130 01/10/2017 High risk for fracture due to osteoporosis by DE XA scan 09/30/2015 documented as of this encounter (statuses as of 08/09/2024) Resolved Problems Problem Noted Date Diagnosed Date Resolved Date Senile osteoporosis 10/18/2020 01/07/20 24 Prediabetes 12/03/2017 12/18/2018 Overview: Per Prediabetes protocol #1 Well adult exam 03/27/2017 12/18/2018 Overview: 04/06 colonoscopy 1mm polyp PATH PEND Non-toxic multinodular goiter 12/26/2011 12/18/2018 documented as of this encounter (statuses as of 08/09/2024) Immunizations Name Administration Dates Next Due COVID-19 [...] encounter Miscellaneous Notes * Telephone Encounter - Margoth Villaseñor, [facility] - 08/09/2024 3:28 PM EDT Signed Prescriptions: Disp Refills Atorvastatin Calcium 40 MG Oral Tablet (Li*90 Tab*3 Sig: TAKE 1 TABLET BY MOUTH EVERY MORNING Authorizing Provider: ALBERTO PALMA Ordering User: MARGOTH VILLASEÑOR Electronically signed by Margoth Villaseñor [facility] at 08/09/2024 3:28 PM EDT * Telephone Encounter - Interface, [facility] In[facility] - 08/09/2024 11:30 AM EDT Pending Prescriptions: Disp Refills Atorvastatin Calcium 40 MG Oral Tablet [Ph*90 Tab*0 Sig: TAKE 1 TABLET BY MOUTH EVERY MORNING documented in this encounter Plan of Treatment Upcoming Encounters Date Type Department Care Team (Late st Contact Info) Description 09/08/2024 9:30 AM EST Nurse Only Rheumatology [address] [place] [address] Pf, Nurse Rheum [facility] [place] [address] 01/12/2025 8:00 AM EDT Office Visit Family Practice [facility] [address] [place] [address] Alberto Palma, [address] [place] [address] 07/05/2025 1:00 PM EDT Imaging Radiology, [place] [address] Geoff Mcnamara [place] [address] Scheduled Procedures Name Priority Associated Diagnoses Date/Ti [...] 12/27/2023 12/26/2021, 03/15/2020, 12/25/2019 COVID-19 Vaccine ( - season) 2024 01/07/2021, 12/17/2020 Adult Wellness Visit [...] D LEVEL ONCE IN A LIFETIME-USE SMARTSET# [id number] Completed 02/28/2024, 01/26/2023, 05/08/2021, Additional history exists [...] as of this encounter Visit Diagnoses Diagnosis Dyslipidemia, goal LDL below 130 Other and unspecified hyperlipidemia documented in this encounter Care Teams Network Strategist Relationship Specialty Start Date End Date Alberto Palma DO [address] [place] [address] PCP - General Family Medicine 04/14/15 documented as of this encounter
--- OUTSIDE RECORDS SUMMARY | 2024-12-08 20:55 | External Medical Summary | Summary of Care ---
Author Name Unknown Organization [facility] Address [address] [place] [address] Phone [phone] Care Team Providers Care Flooring Mechanic Name Role Phone HerbertAlberto england Primary Care Provider [phone] Reason for Visit * Reason Comments Skin Check Pt here for annual f ull body skin check, pt denies any specific issues or concerns at this time.Last FBSE 06/28/23. Hx: SCC, SKs Encounter Details Date Type Department Care Team (Late st Contact Info) Description 06/29/2024 2:00 PM EDT Office Visit Dermatology [facility] [address] [facility] [place] [address] Sim Neil MD [address] [place] [address] Actinic skin damage*; Seborrheic keratoses; Scar; Hx of squamous cell carcinoma; Actinic keratosis Allergies No known active allergiesdocumented as of this encounter (statuses as of 06/29/2024) Medications Medication Sig Dispensed Refills Start Date [...] (Aristocort) 01/17/2023 Active Vitamin D 50 MCG (1999) Oral Capsule Take 2,000 Units by mouth [...] as of this encounter (statuses as of 06/29/2024) Active Problems Problem Noted Date Diagnosed Date HTN, goal below 140/90 02/08/2017 Dyslipidemia, goal LDL below 130 01/10/2017 High risk for fracture due to osteoporosis by DE XA scan 09/30/2015 documented as of this encounter (statuses as of 06/29/2024) Resolved Problems Problem Noted Date Diagnosed Date Resolved Date Senile osteoporosis 10/18/2020 01/07/20 24 Prediabetes 12/03/2017 12/18/2018 Overview: Per Prediabetes protocol #1 Well adult exam 03/27/2017 12/18/2018 Overview: 04/06 colonoscopy 1mm polyp PATH PEND Non-toxic multinodular goiter 12/26/2011 12/18/2018 documented as of this encounter (statuses as of 06/29/2024) Immunizations Name Administration Dates Next Due COVID-19 [...] on file documented as of this encounter Progress Notes * Sim Neil MD - 06/29/2024 2:00 PM EDT SUBJECTIVE: Chief Complaint: Chief Complaint Patient presents with Skin Check Pt here for annual full body skin check, pt denies any specific issues or concerns at this time. Last FBSE 06/28/23. Hx: SCC, SKs HPI: Agatha Lane is a 74 year old female seen for a full skin check for history of nonmelanoma skin cancer. No spots of concern today DERMATOLOGIC HISTORY: 2020 SCC mid upper back REVIEW OF SYSTEMS: CONSTITUTIONAL: negative SKIN: No new or changing moles or rashes other than those noted in HPI HEME/LYMPH: No new or enlarging lumps or bumps OBJECTIVE: GEN: Healthy, alert, no distress, appears oriented, pleasant, and cooperative SKIN: Detailed exam of hair, face, trunk, arms, and legs Right nasal sidewall, nasal dorsum - x2 gritty erythematous macules/papules Well-healed scar(s) at primary site(s) without evidence of recurrence Scattered on face, chest, back - diffuse mottled hypopigmented and hyperpigmented macules without significant irregularity. Associated telangiectasias At the trunk and extremities are several scattered rahman/brown hyperkeratotic stuck on appearing waxypapules. ASSESSMENT/PLAN: /Actinic keratosis -The diagnosis and malignant potential of the lesion was explained. Treatment options were reviewedincluding cryotherapy, topical medications, and observation. All questions were addressed. Procedure - Cryotherapy (Premalignant Destruction) -The patient would like to proceed with cryosurgery;Cryosurgery explained to the patient, consent obtained, patient, site and procedure verified, and then cryotherapy was performed with Liquid Nitrogen via cryo spray unit to 2 lesions. Location noted in physical exam. Post op course explained. -Discussed that if any of these lesions fail to completely resolve after treatment patient should call me for re-evaluation Scar(s), History of Nonmelanoma Skin Cancer - Well healed scar(s) with no evidence of recurrence - Recommended periodic skin exams and instructed to call clinic if patient notices any changing lesions, including rapid enlargement, changes in color or shape or symptoms, bleeding, or other concerns. The common features and behavior of non-melanoma skin cancers (e.g. basal cell carcinoma/squamouscell carcinoma) as well as the features of melanoma were also reviewed. -Daily sun protection recommended including physical (i.e. clothing) and chemical blockers. Broad spectrum sunscreens with at least SPF 30 for UVA and UVA protection were recommended. Chronic Actinic Damage - Discussed that skin changes are due to chronic sun exposure. - Daily sun protection recommended as discussed above Seborrheic keratoses - The benign nature of these lesions was discussed with the patient and that no treatment is indicated today. Sim Neil MD REF: SELF NO STRE[address] ADDRESS AVAILABLE PCP: ALBERTO PALMA [address] [place] [address] [phone] documented in this encounter Nursing Notes * Elda Sosa CMA - 06/29/2024 1:40 PM EDT Chief Complaint Patient presents with Skin Check Pt here for annual full body skin check, pt denies any specific issues or concerns at this time. Last FBSE 06/28/23. Hx: SCC, SKs documented in this encounter Plan of Treatment Upcoming Encounters Date Type Department Care Team (Late st Contact Info) Description 07/31/2024 9:00 AM EDT Nurse Only Ancillary [facility] [address] [place] [address] Kofi, Nurse Annual Wellness [place] [address] [place] [address] 09/08/2024 9:30 AM EST Nurse Only Rheumatology [facility] [address] [facility] [place] [address] Pf, Nurse Rheum [address] [facility] [place] [address] 01/12/2025 8:00 AM EDT Office Visit Family Practice [facility] [address] [place] [address] Alberto Palma DO [address] [place] [address] Scheduled Procedures Name Priority Associated Diagnoses Date/Ti [...] 12/26/2021, 03/15/2020, 12/25/2019 COVID-19 Vaccine (3 - 2022- season) 2024 01/07/2021, 12/17/2020 Influenza Vaccine (FLU shot) (#1) 2024 08/02/2023, 07/28/2022, 07/13/2021, Additional history exists Adult Wellness Visit 07/29/2024 07/29/2023, 07/24/2022, 05/22/2021 Depression Screening 07/29/2024 07/29/2023 GFR 01/24/2025 01/25/2024, 04/0 05/2023, 04/10/2022, Additional history exists Mammogram 02/04/2025 02/05/2024, 06/22, 07/14/2021, Additional history exists DXA Scan 06/04/2025 06/04/2023, 05/21, 05/11/2019, Additional history exists Albumin/Creatinine Ratio 07/24/2025 07/24/2022 Colonoscopy 04/27/2027 04/27/2022, 05/2022, 03/27/2017, Additional history exists Colorectal Cancer Screening 04/27/2027 Lipid Panel 01/24/2029 01/25/2024, 0 05/2023, 04/10/2022, Additional history exists DTap/Tdap Vaccines (2 - Td or Tdap) 02/21/2029 02/21/2019 Pneumococcal Vaccine: 65+ Years Completed 12/18/2018, 02/08/2017 Zoster Vaccines Completed 11/27/2019, 06/22, 07/10/2019, Additional history exists RETIRED - COLONOSCOPY-EVERY 5 YRS AGES 18-100 Discontinued 04/27/2022, 04/27/2022, 03/27/2017, Additional history exists VITAMIN D LEVEL ONCE IN A LIFETIME-USE SMARTSET# [id number] Completed 02/28/2024, 01/26/2023, 05/08/2021, Additional history exists HPV (Gardasil) Vaccine Aged Out No lo nger eligible based on patient's age to complete this topic Hepatitis B Vaccine Aged Out No longe r eligible based on patient's age to complete this topic documented as of this encounter Medical Devices Not on filedocumented as of this encounter Visit Diagnoses Diagnosis Actinic skin damage- Primary Other dermatitis due to solar radiation Seborrheic keratoses Scar Scar condition and fibrosis of skin Hx of squamous cell carcinoma Personal history of malignant neoplasm of other site Actinic keratosis documented in this encounter Care Teams Flooring Mechanic Relationship Specialty Start Date End Date Alberto Palma DO [address] [place] [address] PCP - General Family Medicine 04/14/15 documented as of this encounter
--- OUTSIDE RECORDS SUMMARY | 2024-12-08 20:55 | External Medical Summary | Summary of Care ---
Author Name Unknown Organization [facility] Address [address] [facility] [place] [place] [address] Phone [phone] Care Team Providers Care Curriculum Designer Name Role Phone HerbertGhislaine england Primary Care Provider Reason for Visit * Reason Onset Date Comments Pre Cert/Prior Auth 09/07/2024 Oop cost for prolia Order Request 09/07/2024 prolia Encounter Details Date Type Department Care Team (Late st Contact Info) Description 09/07/2024 Telephone Rheumatology [facility] [address] [facility] [place] [address] Elizabeth Conklin CRNP [address] [place] [address] [place] [address] Pre Cert/Prior Auth (Oop cost for prolia);... Allergies No known active allergiesdocumented as of this encounter (statuses as of 09/07/2024) Medications aspirin enteric coated 81 MG TBECIndications:H [...] (Aristocort) 3 Active Vitamin D 50 MCG (2000 UT) [...] EVERY MORNING 90 Tablet 3 4 Active Hospital, Clinic, or Other Facility Administered Medication Ordered Dose Route Frequency Start Date End Date Status Denosumab (Prolia) subcut inj 60 mgIndications:Senile osteoporosis 60 mg SC ONCE 09/08/2024 09/08/2024 Active documented as of this encounter (statuses as of 09/07/2024) Active Problems Problem Noted Date Diagnosed Date HTN, goal below 140/90 02/08/2017 Dyslipidemia, goal LDL below 130 01/10/2017 High risk for fracture due to osteoporosis by DE XA scan 09/30/2015 documented as of this encounter (statuses as of 09/07/2024) Resolved Problems Problem Noted Date Diagnosed Date Resolved Date Senile osteoporosis 10/18/2020 01/07/20 24 Prediabetes 12/03/2017 12/18/2018 Overview: Per Prediabetes protocol #1 Well adult exam 03/27/2017 12/18/2018 Overview (03/27/2017): 04/06 colonoscopy 1mm polyp PATH PEND Non-toxic multinodular goiter 12/26/2011 12/18/2018 documented as of this encounter (statuses as of 09/07/2024) Immunizations Name Administration Dates Next Due COVID-19 [...] encounter Miscellaneous Notes * Telephone Encounter - Elizabeth Conklin CRNP - 09/07/2024 12:50 PM EST Reviewed and signed. * Telephone Encounter - Anita Shook LPN - 09/07/2024 11:55 AM EST Chart reviewed and labs noted to be within normal limits. Patient has been seen within the last 12 months by a Rheumatology provider. Prolia authorization approved and updated in referral. Last injection has been > 6 months and 1 day. CAM orders pended for signature. Thank you! * Telephone Encounter - Anita Shook LPN - 09/07/2024 11:06 AM EST Patient has an upcoming appointment to receive prolia. Please notify patient of any oop cost. Supervised by Dr. Jovanny Vazquez, getting prolia at Thank you! documented in this encounter Plan of Treatment Upcoming Encounters Date Type Department Care Team (Late st Contact Info) Description 09/08/2024 9:30 AM EST Nurse Only Rheumatology [address] [place] [address] Pf, Nurse Rheum [facility] [facility] [place] [address] 01/12/2025 8:00 AM EDT Office Visit Family Practice [facility] [address] [place] [address] Ghislaine Cunningham DO [address] [place] [address] 07/05/2025 1:00 PM EDT Imaging Radiology, [facility] [address] [facility] [place] [address] Scheduled Procedures Name Priority Associated Diagnoses [...] D LEVEL ONCE IN A LIFETIME-USE SMARTSET# [id number] Completed 02/28/2024, 01/26/2023, 05/08/2021, Additional history exists [...] Primary documented in this encounter Care Teams Curriculum Designer Relationship Specialty Start Date End Date Ghislaine Cunningham DO [address] [place] [address] PCP - General Family Medicine 04/14/15 documented as of this encounter
--- OUTSIDE RECORDS SUMMARY | 2024-12-08 20:55 | External Medical Summary | Summary of Care ---
Author Name Unknown Organization [facility] Address [address] [facility] [place] [address] Phone [phone] Care Team Providers Care Therapy Manager Name Role Phone Alberto Palma DO Primary Care Provider [phone] Reason for Visit * Reason Comments eRx-Medication Refill Encounter Details Date Type Department Care Team (Late st Contact Info) Description 07/17/2024 Refill Family Practice [facility] [address] [place] [address] Alberto Palma DO [address] [place] [address] HTN, goal below 140/90 Allergies No known active allergiesdocumented as of this encounter (statuses as of 07/20/2024) Medications Medication Sig Dispensed Refills Start Date [...] 03/24/2024 Active hydrOXYzine HCl 25 MG Oral TabletIndications: Pruritic dermatitis Take 1 tablet by mouth every 6 hours if needed for itching. 40 Tablet 3 05/14/2024 Active Losartan Potassium 100 MG Oral Tablet (Cozaar)Indication s:HTN, goal below 140/90 TAKE 1 TABLET BY MOUTH ONCE DAILY 90 Tablet 1 07/20/2024 Active Losartan Potassium 100 MG Oral Tablet (Cozaar)Indication s:HTN, goal below 140/90 TAKE 1 TABLET BY MOUTH ONCE DAILY 90 Tablet 1 01/14/2024 07/20/2024 Discontinued documented as of this encounter (statuses as of 07/20/2024) Active Problems Problem Noted Date Diagnosed Date HTN, goal below 140/90 02/08/2017 Dyslipidemia, goal LDL below 130 01/10/2017 High risk for fracture due to osteoporosis by DE XA scan 09/30/2015 documented as of this encounter (statuses as of 07/20/2024) Resolved Problems Problem Noted Date Diagnosed Date Resolved Date Senile osteoporosis 10/18/2020 01/07/20 24 Prediabetes 12/03/2017 12/18/2018 Overview: Per Prediabetes protocol #1 Well adult exam 03/27/2017 12/18/2018 Overview: 04/06 colonoscopy 1mm polyp PATH PEND Non-toxic multinodular goiter 12/26/2011 12/18/2018 documented as of this encounter (statuses as of 07/20/2024) Immunizations Name Administration Dates Next Due COVID-19 [...] encounter Miscellaneous Notes * Telephone Encounter - Terry Garner [facility] - 07/20/2024 10:01 AM EDT Signed Prescriptions: Disp Refills Losartan Potassium 100 MG Oral Tablet (Coz*90 Tab*1 Sig: TAKE 1 TABLET BY MOUTH ONCE DAILY Authorizing Provider: ALBERTO PALMA Ordering User: TERRY GARNER * Telephone Encounter - Interface, [facility] - 07/19/2024 7:46 PM EDT Pending Prescriptions: Disp Refills Losartan Potassium 100 MG Oral Tablet [Pha*90 Tab*0 Sig: TAKE 1 TABLET BY MOUTH ONCE DAILY documented in this encounter Plan of Treatment Upcoming Encounters Date Type Department Care Team (Late st Contact Info) Description 07/31/2024 9:00 AM EDT Nurse Only Ancillary [facility] [address] [facility] [place] [address] Kofi, Nurse [facility] [address] [facility] [place] [address] 09/08/2024 9:30 AM EST Nurse Only Rheumatology [address] [place] [address] Pf, Nurse Rheum [address] [place] [address] [place] [address] 01/12/2025 8:00 AM EDT Office Visit Family Practice [facility] [address] [facility] [place] [address] Alberto Palma, DO [address] [facility] [place] [address] 07/05/2025 1:00 PM EDT Imaging Radiology, [address] [place], [place] [address] Scheduled Procedures Name Priority Associated [...] Vaccine ( - season) 2024 01/07/2021, 12/17/2020 Influenza Vaccine [...] D LEVEL ONCE IN A LIFETIME-USE SMARTSET# [id number] Completed 02/28/2024, 01/26/2023, 05/08/2021, Additional history exists HPV (Gardasil) Vaccine Aged Out No lo nger eligible based on patient's age to complete this topic Hepatitis B Vaccine Aged Out No longe r eligible based on patient's age to complete this topic documented as of this encounter Medical Devices Not on filedocumented as of this encounter Visit Diagnoses Diagnosis HTN, goal below 140/90 Unspecified essential hypertension documented in this encounter Care Teams Therapy Manager Relationship Specialty Start Date End Date Alberto Palma DO [address] [place] [address] PCP - General Family Medicine 04/14/15 documented as of this encounter
[2024-12-09] MEDS: ACETAMINOPHEN 325 MG TAB PO PRN (00:14)
[2024-12-09] MEDS: ASPIRIN 81 MG ECTAB PO SCH (07:50)
--- NOTE | 2024-12-09 08:58 | Hospitalist Progress Note ---
Date of Service December 09, 2024 Assessment & Plan (1) Acute sepsis: (2) Left lower lobe pneumonia: (3) Coronavirus infection: (4) Demand ischemia: (5) Hypomagnesemia: (6) COPD suggested by initial evaluation: (7) Hypertension: Plan per admitting service notes with addendum: Patient 74-year-old female presents with acute sepsis with organ dysfunction as evidenced by demand ischemia due to a secondary bacterial left lower lobe pneumonia that most likely initially started as a coronavirus infection. Patient does have imaging suggestive of COPD and would be high risk for further deterioration and requires hospital level care. Admit to the hospital in a monitored setting Antibiotics for community-acquired pneumonia Antitussives and mucolytics Replace magnesium Follow laboratory studies and blood cultures Oxygen as needed Echocardiogram to evaluate cardiac function in the setting of demand ischemia long-term hypertension Continue outpatient medications as ordered Discussed advanced directives with the patient at bedside, conditional code, patient would not want to be intubated 12/09 Sepsis secondary to LLL pneumonia, Coronavirus infection Hypoxia, resolved clinically improving off O2 supplement afebrile WBC still 30k Blood cultures: pending Sputum culture: pending continue Ceftri + Doxy Duoneb QID add Hypertonic Saline BID continue Mucinex, IS and Flutter valve Troponin elevation likely Demand Ischemia no cardiac symptoms Trop normalized echo: pending Microscopic Hematuria will need repeat UA as outpatient Further work up, management, and ff up as outpatient Hypertension continue Losartan SC Lovenox Disposition pending lives at home with family Admission and Anticipated Discharge Date Admission Date: December 08, 2024 Subjective ff up for pneumonia, L lower lobe, coronavirus infection, etc seen resting in bed, comfortable off O2 supplement states she feels somewhat improved compared to yesterday still has cough with scant sputum no shortness of breath no chest pain no fever/chills appetite slowly improving no other symptoms Review of Systems Review of Systems: all noted and negative except for above Physical Exam Physical Exam: General- oriented x 3, not in distress, speaks in sentences with no effort or accessory muscle use Eyes- anicteric Neck- no JVD Lungs- R lung: clear L Lung: mild rhonchi at the base Heart- normal rate, regular rhythm; no murmurs Abdomen- normal bowel sounds, nondistended, soft, nontender Extremities- no pretibial edema, no calf tenderness Neuro- alert, oriented x 3; no gross focal neurologic deficits Skin- warm & dry Results & Data Results & Data Vital Signs (Past 12 Hours) Vital Signs Temp Pulse Pulse Resp BP Pulse Ox O2 Del Method 12/09/24 07:47 36.6 C 80 20 113/66 97 Nasal Cannula 12/09/24 07:27 99 H 17 98 Room Air 12/09/24 06:46 82 12/09/24 04:15 36.7 C 81 20 91/55 L 95 Nasal Cannula 12/09/24 00:31 36.7 C 89 20 94/55 L 98 Nasal Cannula 12/08/24 22:52 82 12/08/24 21:23 Nasal Cannula O2 Flow Rate 12/09/24 07:47 12/09/24 07:27 12/09/24 06:46 12/09/24 04:15 2 12/09/24 00:31 2 12/08/24 22:52 12/08/24 21:23 2 all noted and reviewed including below
[2024-12-09 09:37] LABS: Hematocrit (blood only) 33.7 % (37.0-47.0); Hemoglobin 11.6 g/dl (12.0-16.0); Mean Corpuscular Hemoglobin 29.2 pg (25.0-34.0); Mean Corpuscular Hgb Conc 34.4 g/dL (32.0-36.0); Mean Corpuscular Volume 84.9 fL (80.0-100.0); Mean Platelet Volume 9.8 fL (9.4-12.4); Nucleated RBC # (auto) 0.02 K/uL (0.00-0.12); Nucleated RBC % (auto) 0.1 %; Platelet Count 597 K/uL (130-400); RDW Coefficient of Variation 13.2 % (11.5-14.5); RDW Standard Deviation 40.7 fL (36.4-46.3); Red Blood Count 3.97 M/uL (4.20-5.40); White Blood Count 37.83 K/ul (4.8-10.8)
[2024-12-09 09:57] LABS: BUN Creatinine Ratio 21.5 (10-20); Basophils % (auto) 0.3 %; Calcium 8.1 mg/dl (8.6-10.3); Creatinine Clr Calc Pharmacy 69.4 ml/min; Echinocytes 2+; Eosinophils # (auto) 0.05 K/uL (0.00-0.50); Eosinophils % (auto) 0.1 %; Immature Granulocytes # (auto) 0.37 K/uL (0.01-0.20); Lymphocytes # (auto) 3.39 K/uL (1.20-3.40); Magnesium 2.6 mg/dl (1.7-2.4); Monocytes # (auto) 2.09 K/uL (0.11-0.59); Monocytes % (auto) 5.5 %; Neutrophils # (auto) 31.83 K/uL (1.40-6.50); Neutrophils % (auto) 84.1 %; Potassium 3.7 mmol/L (3.5-5.1)
[2024-12-09 11:11] LABS: BUN Creatinine Ratio 22.2 (10-20); Calcium 7.8 mg/dl (8.6-10.3); Creatinine Clr Calc Pharmacy 71.6 ml/min; Potassium 3.4 mmol/L (3.5-5.1)
[2024-12-09] MEDS: POTASSIUM CHLORIDE CRTAB 20 MEQ TABCR PO STA (11:55)
[2024-12-09] MEDS: BENZONATATE 100 MG CAPSULE PO PRN (11:55)
--- NOTE | 2024-12-09 11:56 | Electrocardiogram Report ---
Test Reason : Blood Pressure : */* mmHG Vent. Rate : 80 BPM Atrial Rate : 80 BPM P-R Int : 152 ms QRS Dur : 72 ms QT Int : 382 ms P-R-T Axes : 68 46 66 degrees QTcB Int : 440 ms Normal sinus rhythm Normal ECG Confirmed by Mele Matthews ([id number]) on 12/09/2024 11:56:29 AM Referred By: REFERRED SELF Confirmed By: Mele Matthews
[2024-12-09] MEDS: ENOXAPARIN INJ 40 MG/0.4 ML SYR SQ SCH (13:21)
--- NOTE | 2024-12-09 13:34 | Electrocardiogram Report ---
Test Reason : Blood Pressure : */* mmHG Vent. Rate : 117 BPM Atrial Rate : 117 BPM P-R Int : 130 ms QRS Dur : 70 ms QT Int : 282 ms P-R-T Axes : 56 59 82 degrees QTcB Int : 393 ms Sinus tachycardia Abnormal ECG When compared with ECG of 08-Dec-2024 13:07, Premature ventricular complexes are no longer Present Confirmed by Mele Matthews ([id number]) on 12/09/2024 1:34:40 PM Referred By: REFERRED SELF Confirmed By: Mele Matthews
[2024-12-09] MEDS: SODIUM CHLOR 7% 4 ML NEB NEB SCH (20:05)
[2024-12-10 06:05] LABS: Basophils % (auto) 0.5 %; Eosinophils # (auto) 0.11 K/uL (0.00-0.50); Eosinophils % (auto) 0.5 %; Hematocrit (blood only) 31.9 % (37.0-47.0); Hemoglobin 11.2 g/dl (12.0-16.0); Immature Granulocytes # (auto) 0.19 K/uL (0.01-0.20); Immature Granulocytes % (auto) 0.9 %; Lymphocytes # (auto) 2.33 K/uL (1.20-3.40); Lymphocytes % (auto) 11.3 %; Mean Corpuscular Hemoglobin 29.1 pg (25.0-34.0); Mean Corpuscular Hgb Conc 35.1 g/dL (32.0-36.0); Mean Corpuscular Volume 82.9 fL (80.0-100.0); Monocytes % (auto) 8.2 %; Neutrophils # (auto) 16.28 K/uL (1.40-6.50); Neutrophils % (auto) 78.6 %; Nucleated RBC # (auto) 0.03 K/uL (0.00-0.12); Nucleated RBC % (auto) 0.1 %; Platelet Count 535 K/uL (130-400); RDW Coefficient of Variation 13.2 % (11.5-14.5); RDW Standard Deviation 39.4 fL (36.4-46.3); Red Blood Count 3.85 M/uL (4.20-5.40); White Blood Count 20.71 K/ul (4.8-10.8)
[2024-12-10 06:49] LABS: BUN Creatinine Ratio 17.9 (10-20); Calcium 8.1 mg/dl (8.6-10.3); Creatinine Clr Calc Pharmacy 80.5 ml/min; Potassium 4.4 mmol/L (3.5-5.1)
[2024-12-10] MEDS ORDERED: ALBUT/IPRATROP 3MG/0.5MG NEB 3 ML VIAL NEB PRN (11:48)
--- NOTE | 2024-12-10 18:51 | Hospitalist Progress Note ---
Date of Service December 10, 2024 delayed entry date of service noted above Assessment & Plan (1) Acute sepsis: (2) Left lower lobe pneumonia: (3) Coronavirus infection: (4) Demand ischemia: (5) Hypomagnesemia: (6) COPD suggested by initial evaluation: (7) Hypertension: Plan per admitting service notes with addendum: Patient 74-year-old female presents with acute sepsis with organ dysfunction as evidenced by demand ischemia due to a secondary bacterial left lower lobe pneumonia that most likely initially started as a coronavirus infection. Patient does have imaging suggestive of COPD and would be high risk for further deterioration and requires hospital level care. Admit to the hospital in a monitored setting Antibiotics for community-acquired pneumonia Antitussives and mucolytics Replace magnesium Follow laboratory studies and blood cultures Oxygen as needed Echocardiogram to evaluate cardiac function in the setting of demand ischemia long-term hypertension Continue outpatient medications as ordered Discussed advanced directives with the patient at bedside, conditional code, patient would not want to be intubated 12/09 Sepsis secondary to LLL pneumonia, Coronavirus infection Hypoxia, resolved clinically improving off O2 supplement afebrile WBC still 30k Blood cultures: pending Sputum culture: pending continue Ceftri + Doxy Duoneb QID add Hypertonic Saline BID continue Mucinex, IS and Flutter valve 12/10 improving continue regimen Troponin elevation likely Demand Ischemia no cardiac symptoms Trop normalized echo: EF 55=60% LV wall motion is normal mild tricuspid regurg Microscopic Hematuria will need repeat UA as outpatient Further work up, management, and ff up as outpatient Hypertension continue Losartan SC Lovenox Disposition pending lives at home with family Admission and Anticipated Discharge Date Admission Date: December 08, 2024 Subjective ff up for pneumonia seen resting in bed, comfortable states she is feeling better less cough no SOB no fever/chills weakness improving no other symptoms Review of Systems Review of Systems: all noted and negative except for above Physical Exam Physical Exam: General- oriented x 3, not in distress, speaks in sentences with no effort or accessory muscle use Eyes- anicteric Neck- no JVD Lungs-mild crackles L base Heart- normal rate, regular rhythm; no murmurs Abdomen- normal bowel sounds, nondistended, soft, nontender Extremities- no pretibial edema, no calf tenderness Neuro- alert, oriented x 3; no gross focal neurologic deficits Skin- warm & dry Results & Data Results & Data Vital Signs (Past 12 Hours) Vital Signs Temp Pulse Pulse Resp BP Pulse Ox O2 Del Method 12/10/24 15:49 36.7 C 82 20 133/75 92 Room Air 12/10/24 14:10 90 12/10/24 11:30 36.8 C 86 18 128/78 97 Room Air 12/10/24 11:00 71 16 96 Room Air 12/10/24 10:00 Room Air 12/10/24 08:05 36.7 C 93 H 18 140/76 94 Room Air 12/10/24 07:21 88 12/10/24 07:15 90 15 93 Room Air FiO2 12/10/24 15:49 12/10/24 14:10 12/10/24 11:30 12/10/24 11:00 12/10/24 10:00 12/10/24 08:05 12/10/24 07:21 12/10/24 07:15 21 all noted and reviewed including below
[2024-12-10 19:54] VITALS: TEMP 99
[2024-12-11 07:59] VITALS: PULSE 94; RESP 18; O2SAT 95
[2024-12-11 10:42] VITALS: BP 119/65
--- NOTE | 2024-12-13 18:13 | Discharge Summary ---
Discharge Summary Date of Service December 13, 2024 delayed entry date of service 12/11/24 Principal Dx & Hospital Course #1 = Principal Diagnosis (1) Acute sepsis: (2) Left lower lobe pneumonia: (3) Coronavirus infection: (4) Demand ischemia: (5) Hypomagnesemia: (6) COPD suggested by initial evaluation: (7) Hypertension: Plan per admitting service notes with addendum: Patient 74-year-old female presents with acute sepsis with organ dysfunction as evidenced by demand ischemia due to a secondary bacterial left lower lobe pneumonia that most likely initially started as a coronavirus infection. Patient does have imaging suggestive of COPD and would be high risk for further deterioration and requires hospital level care. 12/09 Sepsis secondary to LLL pneumonia, Coronavirus infection Hypoxia, resolved clinically improving off O2 supplement afebrile WBC still 30k continue Ceftri + Doxy Duoneb QID add Hypertonic Saline BID continue Mucinex, IS and Flutter valve 12/10 improving continue regimen Blood cultures: negative x 48 hours Sputum culture: light normal good 12/11 significantly improved d/c on Cefuroxime + Doxy x 4 more days to complete 7 day course Mucinex x 5 days ff up with PCP in 1 week repeat CXR in 4 weeks Troponin elevation likely Demand Ischemia no cardiac symptoms Trop normalized echo: EF 55=60% LV wall motion is normal mild tricuspid regurg Microscopic Hematuria will need repeat UA as outpatient Further work up, management, and ff up as outpatient Hypertension continue Losartan SC Lovenox Disposition pending lives at home with family Notes For Next Care Provider Repeat CXR in 4 weeks Microscopic Hematuria will need repeat UA as outpatient Further work up, management, and ff up as outpatient Medication Changes From Visit Cefuroxime, Doxycycline- antibiotics for pneumonia Mucinex- for cough Admission HPI Per Admitting Provider Patient is a 74-year-old female presents to the emergency room with above complaints. In the emergency room was noted to have significant leukocytosis and hypomagnesemia and imaging consistent with a left lower lobe pneumonia. She was referred to our service for inpatient care. Time my evaluation patient is feeling little bit better after 2 L of IV fluids. Current blood pressure initially was low but has responded well to fluid resuscitation. She states about 2 weeks ago she started feeling weak, rundown, headaches, generalized malaise and generalized ill feeling. No real documented fevers but just really did not seem like she was getting much better. 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 In the emergency room her O2 sat was satisfactory on room air but these findings were concerning. Time my evaluation patient denies any shortness of breath. No chest pain. She states that she is had these above complaints. Confirms that she has not had any known fevers. Does have a cough that did just start to have some yellow purulent sputum but no blood in the sputum. Her appetite has been decreased but has been drinking plenty of fluids. No changes in her bowel or bladder habits. No swelling in her hands arms legs or feet. 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 is at bedside and confirms history. Patient does report a very remote history of smoking. Quit 50 years ago. Has never had any formal diagnosis of COPD. She reports that she has never needed inhalers or even needed them when she has had upper respiratory infections. Overall she feels that she is fairly healthy. Treated really only for some high blood pressure. Admission Exam Per Admitting Provider Constitutional: Alert, ill in appearance, nontoxic HEENT: Mucous membranes moist. Sclera clear Neck: Soft, no adenopathy Lungs: Decreased breath sounds, prolonged expiratory phase, crackles, rhonchi, rales and dullness in left lower lobe CV: S1-S2, regular, tachycardic Abdomen: Soft, nontender, nondistended Extremities: No significant edema Musculoskeletal: No significant joint tenderness Neuro: No focal deficits Psych: Cooperative, normal mood Discharge Exam General- oriented x 3, not in distress, speaks in sentences with no effort or accessory muscle use Eyes- anicteric Neck- no JVD Lungs- clear breath sounds bilaterally, no rales/wheezes Heart- normal rate, regular rhythm; no murmurs Abdomen- normal bowel sounds, nondistended, soft, nontender Extremities- no pretibial edema, no calf tenderness Neuro- alert, oriented x 3; no gross focal neurologic deficits Skin- warm & dry Updated Medication List Medication Instructions Recorded Confirmed Type aspirin 81 mg capsule 81 mg PO DAILY 12/08/24 12/08/24 History atorvastatin 40 mg tablet 40 mg PO HS 12/08/24 12/08/24 History cholecalciferol (vitamin D3) 50 50 mcg PO DAILY 12/08/24 12/08/24 History mcg (2,000 unit) capsule (Vitamin D3) losartan 100 mg tablet 100 mg PO HS 12/08/24 12/08/24 History benzonatate 100 mg capsule 100 mg PO TID PRN cough #20 caps 12/11/24 Rx cefuroxime axetil 500 mg tablet 500 mg PO BID 4 days #8 tabs 12/11/24 Rx doxycycline hyclate 100 mg capsule 100 mg PO BID 4 days #8 caps 12/11/24 Rx guaifenesin 600 mg tablet, 600 mg PO Q12 5 days #10 tabs 12/11/24 Rx extended release 12 hr (Mucinex) Hospital Stay Data Consultations 12/08/24 15:10 ED Decision to Admit Stat Diagnostic Imagining Performed Laboratory Results WBC 20.71 K/ul (4.8-10.8) H 12/10/24 05:49 RBC 3.85 M/uL (4.20-5.40) L 12/10/24 05:49 Hgb 11.2 g/dl (12.0-16.0) L 12/10/24 05:49 Hct 31.9 % (37.0-47.0) L 12/10/24 05:49 MCV 82.9 fL (80.0-100.0) 12/10/24 05:49 MCH 29.1 pg (25.0-34.0) 12/10/24 05:49 MCHC 35.1 g/dL (32.0-36.0) 12/10/24 05:49 RDW Std Deviation 39.4 fL (36.4-46.3) 12/10/24 05:49 RDW Coeff of Nathaniel 13.2 % (11.5-14.5) 12/10/24 05:49 Plt Count 535 K/uL (130-400) H 12/10/24 05:49 MPV 9.0 fL (9.4-12.4) L 12/10/24 05:49 Immature Gran % (Auto) 0.9 % 12/10/24 05:49 Neut % (Auto) 78.6 % 12/10/24 05:49 Lymph % (Auto) 11.3 % 12/10/24 05:49 Mcdonald % (Auto) 8.2 % 12/10/24 05:49 Eos % (Auto) 0.5 % 12/10/24 05:49 Baso % (Auto) 0.5 % 12/10/24 05:49 Neut # (Auto) 16.28 K/uL (1.40-6.50) H 12/10/24 05:49 Lymph # (Auto) 2.33 K/uL (1.20-3.40) 12/10/24 05:49 Mcdonald # (Auto) 1.70 K/uL (0.11-0.59) H 12/10/24 05:49 Eos # (Auto) 0.11 K/uL (0.00-0.50) 12/10/24 05:49 Baso # (Auto) 0.10 K/uL (0.00-0.20) 12/10/24 05:49 Immature Gran # (Auto) 0.19 K/uL (0.01-0.20) 12/10/24 05:49 Absolute Nucleated RBC 0.03 K/uL (0.00-0.12) 12/10/24 05:49 Nucleated RBC % (auto) 0.1 % 12/10/24 05:49 Polychromasia 1+ 12/08/24 13:10 Pappenheimer Bodies 1+ 12/08/24 13:10 Echinocytes 2+ 12/09/24 07:41 Acanthocytes (Spur) 1+ 12/08/24 13:10 Schistocytes 1+ 12/08/24 13:10 PT 10.9 Seconds (9.0-12.0) 12/08/24 13:10 INR 1.0 (0.9-1.1) 12/08/24 13:10 APTT 23 Seconds (21-31) 12/08/24 13:10 PTT Ratio 0.9 12/08/24 13:10 VBG pH 7.43 (7.36-7.41) H 12/08/24 14:13 VBG pCO2 38 mmHg (38-50) 12/08/24 14:13 VBG pO2 < 20 mmHg 12/08/24 14:13 VBG HCO3 25 mmol/L 12/08/24 14:13 VBG O2 Saturation < 60.0 % 12/08/24 14:13 VBG Base Excess 1.0 mEq/L 12/08/24 14:13 Sodium 139 mmol/L (136-145) 12/10/24 05:49 Potassium 4.4 mmol/L (3.5-5.1) D 12/10/24 05:49 Chloride 113 mmol/L (98-107) H 12/10/24 05:49 Carbon Dioxide 22 mmol/L (21-32) 12/10/24 05:49 Anion Gap 4 (3-11) 12/10/24 05:49 BUN 10 mg/dl (6-23) 12/10/24 05:49 Creatinine 0.56 mg/dl (0.6-1.2) L 12/10/24 05:49 Est Cr Clr Drug Dosing 80.5 ml/min 12/10/24 05:49 eGFR 96.31 12/10/24 05:49 BUN/Creatinine Ratio 17.9 (10-20) 12/10/24 05:49 Glucose 96 mg/dl (70-99(Fasting)) 12/10/24 05:49 Lactate 2.0 mmol/L (0.4-2.0) 12/08/24 14:13 Calcium 8.1 mg/dl (8.6-10.3) L 12/10/24 05:49 Magnesium 2.6 mg/dl (1.7-2.4) H 12/09/24 07:41 Total Bilirubin 0.6 mg/dl (0.2-1.0) 12/08/24 13:10 AST 24 U/L (13-39) 12/08/24 13:10 ALT 25 U/L (7-52) 12/08/24 13:10 Alkaline Phosphatase 94 U/L (34-104) 12/08/24 13:10 Troponin I High Sens 12.0 pg/ml (0-14) D 12/09/24 10:28 Total Protein 7.0 gm/dl (6.0-8.3) 12/08/24 13:10 Albumin 3.8 gm/dl (3.4-5.0) 12/08/24 13:10 Globulin 3.2 gm/dl (2.5-4.0) 12/08/24 13:10 Albumin/Globulin Ratio 1.2 (0.9-2) 12/08/24 13:10 Procalcitonin 0.14 ng/ml (0-0.5) 12/08/24 14:13 Urine Color Yellow 12/08/24 15: Urine Appearance Clear (Clear) 12/08/24 15:27 Urine pH 5.5 (4.5-7.5) 12/08/24 15:27 Ur Specific [place] 1.015 (1.000-1.030) 12/08/24 15: Urine Protein Trace (Negative) H 12/08/24 15: Urine Glucose (UA) Negative (Negative) 12/08/24 15: Urine Ketones Trace (Negative) H 12/08/24 15: Urine Blood 1+ (Negative) H 12/08/24 15: Urine Nitrite Negative (Negative) 12/08/24 15: Urine Bilirubin Negative (Negative) 12/08/24 15: Urine Urobilinogen Negative (Negative) 12/08/24 15: Ur Leukocyte Esterase 1+ (Negative) H 12/08/24 15:27 Urine WBC (Auto) 0-5 /hpf (0-5) 12/08/24 15: Urine RBC (Auto) 0-2 /hpf (0-2) 12/08/24 15: U Hyaline Cast (Auto) 11-20 /lpf (0-2) H 12/08/24 15:27 U Epithel Cells (Auto) 0-2 /hpf (0-2) 12/08/24 15:27 Urine Bacteria (Auto) None Seen (None Seen) 12/08/24 15:27 Hyaline Casts Present /lpf (None Presnt) A 12/08/24 15:27 Adenovirus (PCR) Not Detected (NotDetected) 12/08/24 13:10 B. pertussis DNA (PCR) Not Detected (NotDetected) 12/08/24 13:10 B.parapertussis DNA PCR Not Detected (NotDetected) 12/08/24 13:10 C. pneumoniae DNA (PCR) Not Detected (NotDetected) 12/08/24 13:10 Coronavirus OC43 (PCR) DETECTED (NotDetected) A 12/08/24 13:10 Coronavirus HKU1 (PCR) Not Detected (NotDetected) 12/08/24 13:10 Coronavirus 229E (PCR) Not Detected (NotDetected) 12/08/24 13:10 SARS-CoV-2 (PCR) Not Detected (NotDetected) 12/08/24 13:10 Coronavirus NL63 (PCR) Not Detected (NotDetected) 12/08/24 13:10 Human Metapneumovir PCR Not Detected (NotDetected) 12/08/24 13:10 Influenza Type A (PCR) Not Detected (NotDetected) 12/08/24 13:10 Influenza Type B (PCR) Not Detected (NotDetected) 12/08/24 13:10 M. pneumoniae (PCR) Not Detected (NotDetected) 12/08/24 13:10 Parainfluenza 1 (PCR) Not Detected (NotDetected) 12/08/24 13:10 Parainfluenza 2 (PCR) Not Detected (NotDetected) 12/08/24 13:10 Parainfluenza 3 (PCR) Not Detected (NotDetected) 12/08/24 13:10 Parainfluenza 4 (PCR) Not Detected (NotDetected) 12/08/24 13:10 RSV (PCR) Not Detected (NotDetected) 12/08/24 13:10 Entero/Rhino (PCR) Not Detected (NotDetected) 12/08/24 13:10 Impressions Chest X-Ray 12/08/24 13:02 XR chest 1V not portable CLINICAL HISTORY: Chest pain, nonspecific COMPARISON STUDY: None FINDINGS: Single view chest demonstrates patchy airspace opacities in the left lung base suspicious for infectious or inflammatory infiltrate. There is obscuration of the right cardiophrenic angle which is commonly associated with either fibrosis or fatty deposition. The upper lung zones are hyperlucent with slight flattening of the diaphragm to the small cardiac silhouette suggesting a component of COPD. There is no pneumothorax. There is no significant atelectasis. There is no pulmonary vascular congestion. Surgical clips are identified in the left upper quadrant and in the right upper quadrant. IMPRESSION: Probable COPD. Patchy left basilar infiltrate suspicious for infectious or inflammatory process. ACT 112: Negative or not required by law. Electronically signed by: Inna Amezcua M.D. 12/08/2024 1:50 PM Pending Results Patient Have Any Pending Studies at Discharge: No Discharge Instructions Given to Patient (Per Discharging Provider) PLEASE REFER TO YOUR NEW MEDICATION LIST AND FOLLOW INSTRUCTIONS CAREFULLY. YOUR NEW MEDICATIONS INCLUDE: Cefuroxime, Doxycycline- antibiotics for pneumonia Mucinex- for cough Please take a probiotic and eat yogurt daily x at least 2 weeks. Drink plenty of water. Please continue using your incentive spirometry and flutter valve at home. PLEASE CALL YOUR PRIMARY CARE PHYSICIAN OR RETURN TO THE ER IF WITH WORSENING OF SYMPTOMS, INCLUDING cough, shortness of breath, fever/chills, chest pain, etc FOLLOW UP WITH PRIMARY CARE PHYSICIAN OUTLINED ABOVE. Take care. Total Time Total Time Spent Total Time Spent (In Minutes): 40 minutes
== END 2024-12-11 10:57 | disposition home or self-care (01) | DRG 871 ==
LOC: ED 12:56 → 2W 16:09 → SUATTDRO 16:09 → 2W 17:13
DX: J44.1 Chronic obstructive pulmonary disease with (acute) exacerbation; B34.2 Coronavirus infection, unspecified; E83.42 Hypomagnesemia; I10 Essential (primary) hypertension; R31.29 Other microscopic hematuria; Z79.82 Long term (current) use of aspirin; J15.9 Unspecified bacterial pneumonia; I24.89 Other forms of acute ischemic heart disease; A41.9 Sepsis, unspecified organism

== ENCOUNTER 2025-10-13 01:57 | Inpatient (IN) ==
[2025-10-13] MEDS: OPTIRAY 320 125ml IV ONE ×2 (02:37→03:15)
[2025-10-13 02:39] LABS: Hematocrit (blood only) 46.0 % (37.0-47.0); Hemoglobin 16.3 g/dL (12.0-16.0); Immature Granulocytes # (auto) 0.06 K/uL (0.01-0.20); Immature Granulocytes % (auto) 0.4 %; Mean Corpuscular Hemoglobin 29.1 pg (25.0-34.0); Mean Corpuscular Volume 82.1 fL (80.0-100.0); Platelet Count 273 K/uL (130-400); RDW Standard Deviation 40.0 fL (36.4-46.3); Red Blood Count 5.60 M/uL (4.20-5.40); White Blood Count 16.35 K/ul (4.8-10.8)
[2025-10-13 02:59] LABS: Alanine Aminotransferase 12.0 U/L (7-52); Albumin Globulin Ratio 1.2 (0.9-2); Albumin Level 3.8 gm/dl (3.4-5.0); Alkaline Phosphatase 106.0 U/L (34-104); Anion Gap 10.0 (3-11); Bilirubin,Total 1.0 mg/dl (0.2-1.0); Blood Urea Nitrogen 13.0 mg/dl (6-23); Calcium 8.9 mg/dl (8.6-10.3); Carbon Dioxide 23.0 mmol/L (21-32); Chloride 108.0 mmol/L (98-107); Creatinine Clr Calc Pharmacy 60.0 ml/min; Globulin 3.1 gm/dl (2.5-4.0); Glucose 126.0 mg/dl (70-99(Fasting)); Magnesium 1.8 mg/dl (1.7-2.4); Potassium 3.7 mmol/L (3.5-5.1); Sodium 141.0 mmol/L (136-145); Total Protein 6.9 gm/dl (6.0-8.3)
[2025-10-13 03:07] LABS: INR 1.1 (0.9-1.1); Partial Thromboplastin Time 27 Seconds (21-31); Prothrombin Time 11.9 Seconds (9.0-12.0)
--- NOTE | 2025-10-13 03:13 | CT Scan Report ---
EXAM: CT angio head w con CLINICAL HISTORY: Neuro deficit, acute stroke suspected TECHNIQUE: Axial CT angiography of the head was done with contrast and sagittal and coronal reformats with MIP reconstructions. One of the following dose reduction techniques were utilized for this exam: Automated exposure control, adjustment of the mA and/or kV according to patient size, use of iterative reconstruction. One of these 3D techniques was utilized: Maximum Intensity Pixel (MIP), 3D Reconstructed Images, Volume Rendered Images, Surface Shaded Rendering. COMPARISON: CT head same date reviewed FINDINGS: Intracranial Arteries: The intracranial portions of bilateral internal carotid arteries show calcified plaques with upto 10% luminal narrowing. Bilateral middle cerebral arteries are normal in caliber and contrast opacification. Hypoplastic A1 segment of left anterior cerebral artery, normal variant. Rest of bilateral anterior cerebral arteries appear normal in caliber and contrast opacification. The basilar artery and bilateral posterior cerebral arteries appear normal in caliber and contrast opacification. The visualized vertebral arteries appear normal in caliber and contrast opacification. IMPRESSION: 1. No critical stenosis in CT angiography of the head. 2. Mild atherosclerotic changes in intracranial portions of bilateral internal carotid arteries. [facility] was called at [phone] at 03:08 AM EST, 10/13/2025, and BINA Blanco was informed regarding the negative stroke findings in the report. Electronically signed by Mj Meade 10-13-2025 03:12 AM
--- NOTE | 2025-10-13 03:13 | CT Scan Report ---
EXAM: CT head/brain wo con CLINICAL HISTORY: Neuro deficit, acute stroke suspected. TECHNIQUE: Axial non-contrast CT scan of the brain was performed from the skull base to the high parietal region .One of the following dose reduction techniques were utilized for this exam: Automated exposure control, adjustment of the mA and/or kV according to patient size, use of iterative reconstruction. COMPARISON: CT head and neck angiography same date reviewed FINDINGS: Brain Parenchyma: Focal low attenuation area in the subcortical aspect of left fronto-parietal region, slightly extending in the adjacent mae radiata. Possibility of vasogenic edema due to underlying metastatic lesion could not be excluded considering right upper lung mass lesion in the CT neck angiography images. Other possible differential could be chronic ischemic changes. Images 15- There are ill-defined iso-to hypodense areas in the subcortical and periventricular white matter bilaterally, representing chronic microvascular ischemic changes. The rest of visualized brain parenchyma shows normal appearance. No intracerebral or extra axial hematoma. Ventricular System: Prominent ventricular system. Subarachnoid Spaces: The cortical sulci and basal cisterns are prominent, consistent with senile changes. Cerebellum and Brainstem: No masses, lesions, or areas of abnormal density. Orbits: Normal appearance of the globes, optic nerves, and extraocular muscles. No evidence of orbital masses or abnormal density. Visualised Paranasal sinuses: Clear paranasal sinuses. Left sided nasal septal deviation . Mastoid Air Cells: Clear mastoid air cells. Skull and soft tissue: Tiny lucent areas in the skull, indeterminate in nature. Possibility of metastases cannot be excluded. IMPRESSION: 1. Focal low attenuation area in the subcortical aspect of left fronto-parietal region, slightly extending in the adjacent mae radiata. Possibility of vasogenic edema due to underlying metastatic lesion could not be excluded considering right upper lung mass lesion and metastatic mediastinal nodes in the CT neck angiography images. Other possible differential could be chronic ischemic changes. Recommended dedicated MR contrast enhancing examination for further evaluation 2. Chronic microvascular ischemic changes and senile cortical atrophy. [facility] was called at [phone] at 03:08 AM EST, 10/13/2025, and BINA Brinklloyd was informed regarding the presence of significant medical findings in the stroke report. Electronically signed by Mj Meade 10-13-2025 03:12 AM
--- NOTE | 2025-10-13 03:19 | CT Scan Report ---
EXAM: CT angio neck with con CLINICAL HISTORY: Neuro deficit, acute stroke suspected. TECHNIQUE: Axial CT angiography of the neck was done with contrast and sagittal and coronal reformats with MIP reconstructions. One of the following dose reduction techniques were utilized for this exam: Automated exposure control, adjustment of the mA and/or kV according to patient size, use of iterative reconstruction. One of these 3D techniques was utilized: Maximum Intensity Pixel (MIP), 3D Reconstructed Images, Volume Rendered Images, Surface Shaded Rendering. COMPARISON: None. FINDINGS: The aortic arch shows atherosclerotic changes with calcified plaques. Normal branching pattern noted. Carotid Arteries: Bilateral common carotid arteries appear normal in caliber and contrast opacification. Calcified plaques are seen at bilateral carotid bulbs and osteoproximal segments of internal carotid arteries, causing nearly 10%-20% luminal narrowing on the right side and minimal 5%-10% luminal narrowing on the left side. The rest of cervical portions of bilateral internal carotid arteries appear normal in caliber and contrast opacification. Bilateral external carotid arteries appear normal in caliber and contrast opacification. Vertebral Arteries: Mild relative narrowing of right vertebral artery is dominant left vertebral artery, normal variant. Subclavian Arteries: Calcified plaques ostioproximal segments noted. No evidence of significant stenosis, occlusion, or aneurysm. Thyroid Gland: Hypodense nodules in both lobes of thyroid gland, largest measuring 12 mm. Visualised chest: Neoplastic heterogeneously enhancing spiculated mass lesion in the medial aspect of right lower lobe in parahilar location, measuring 4 x 3.2 cm in axial plane with adjacent haziness and interstitial thickening in the visualized right upper lobe, possibility of lymphangitic carcinomatosis. Moderate right sided pleural effusion noted with nodular thickening of the major fissure. Multiple necrotic and heterogeneously enhancing right supraclavicular and mediastinal nodes noted, largest measuring 20 x 15 mm.. Centrilobular and paraseptal emphysematous changes in the visualized lung hartman.. Cervical Spine: Degenerative changes in cervical spine. Tiny sclerotic densities in the cervical spine. IMPRESSION: 1. No critical stenosis in CT angiography of neck. 2. Neoplastic heterogeneously enhancing spiculated mass lesion in the medial aspect of right lower lobe in parahilar location, measuring 4 x 3.2 cm in axial plane with adjacent haziness and interstitial thickening in the visualized right upper lobe, possibility of lymphangitic carcinomatosis. Recommended dedicated CT chest examination with further workup. 3. Moderate right sided pleural effusion noted with nodular thickening of the major fissure. 4. Multiple necrotic and heterogeneously enhancing right supraclavicular and mediastinal nodes noted, largest measuring 20 x 15 mm. 5. Hypodense nodules in both lobes of thyroid gland, largest measuring 12 mm. Recommended ultrasound evaluation 6. Calcified plaques at bilateral carotid bulbs and osteoproximal segments of internal carotid arteries, causing nearly 10%-20% luminal narrowing on the right side and minimal 5%-10% luminal narrowing on the left side. [facility] ER was called at [phone] at 03:15 AM EST, 10/13/2025, and KALI Glass was informed regarding the presence of significant medical findings in the stroke report. Electronically signed by Mj Meade 10-13-2025 03:17 AM
--- NOTE | 2025-10-13 04:05 | CT Scan Report ---
EXAM: CT angio chest PE protocol CLINICAL HISTORY: PE TECHNIQUE: Contiguous axial images were obtained from the neck base through the upper abdomen following intravenous administration of iodinated contrast material. Angiographic images were processed, 3D MIP images were acquired for interpretation. If IV contrast material had not been administered, the likelihood of detecting abnormalities relevant to the patient's condition would have been substantially decreased. Coronal and sagittal 3-D MIPs were likewise performed and indicated to increase the sensitivity of detectin diffuse clinically relevant pathology. CT scan was performed according to ALARA (as low as reasonably achievable). COMPARISON: None. FINDINGS: Approximately 61 x 39 x 42 mm sized heterogeneously enhancing mass like consolidation is noted involving right upper lobe, extending up to the right hilum. - likely neoplastic etiology - histopathological evaluation suggested. Evidence of intraluminal hypodense filling defect is noted involving left lower lobar artery and its proximal segmental branches - suggestive of embolism. Diffuse smooth interlobular septal thickening with superimposed ground-glass opacities are noted involving bilateral lungs - suggestive of pulmonary congestion Mild dilatation of pulmonary trunk ,bilateral main pulmonary artery up to subsegmental level with mild tortuosity - suggest possibility of pulmonary arterial hypertension. Mild cardiomegaly with moderate pericardial effusion. Moderate right pleural effusion with basal subsegmental collapse of right lower lobes are seen. Multiple enlarged prevascular, pre and paratracheal, right perihilar and subcarinal lymph nodes are seen - largest measures 33 mm The central airways are patent. There are coronary artery and aortic atherosclerotic calcifications. The thyroid is unremarkable. No suspicious lytic or sclerotic osseous lesions are identified. IMPRESSION: 1. Approximately 61 x 39 x 42 mm sized heterogeneously enhancing mass like consolidation is noted involving right upper lobe, extending up to the right hilum. - likely neoplastic etiology - histopathological evaluation suggested. 2. Evidence of intraluminal hypodense filling defect is noted involving left lower lobar artery and its proximal segmental branches - suggestive of embolism. 3. Diffuse smooth interlobular septal thickening with superimposed ground-glass opacities are noted involving bilateral lungs - suggestive of pulmonary congestion 4. Mild dilatation of pulmonary trunk ,bilateral main pulmonary artery up to subsegmental level with mild tortuosity - suggest possibility of pulmonary arterial hypertension. 5. Mild cardiomegaly with moderate pericardial effusion.Moderate right pleural effusion with basal subsegmental collapse of right lower lobes are seen. 6. Multiple enlarged prevascular, pre and paratracheal, right perihilar and subcarinal lymph nodes are seen - largest measures 33 mm Electronically signed by Salvador Rodríguez 10-13-2025 04:04 AM
--- NOTE | 2025-10-13 04:10 | XRay Report ---
EXAM: XR chest 1V not portable CLINICAL HISTORY: cough TECHNIQUE: An X-ray image of the chest is obtained in AP projection. COMPARISON: 12/08/2024 12:30:29 [employer]. FINDINGS: Mild right pleural effusion with basal subsegmental collapse of right lower lobes are seen. Ill-defined ground-glass opacities noted in right mid-lower zone - appears congestive changes. The cardiomediastinal silhouette is within normal limits. No acute osseous abnormality. IMPRESSION: Mild right pleural effusion with basal subsegmental collapse of right lower lobes are seen.-new finding. Ill-defined ground-glass opacities noted in right mid-lower zone - appears congestive changes.-new finding. Electronically signed by Salvador Rodríguez 10-13-2025 04:09 AM
--- NOTE | 2025-10-13 05:50 | History & Physical Report ---
Date of Service October 13, 2025 Assessment & Plan (1) Stroke-like symptom: Plan: 75-year-old female with past medical history significant for hypertension, hyperlipidemia, osteoporosis, hereditary spherocytosis, history of splenectomy presents with strokelike symptoms. Since last evening patient noticed right hand weakness and as was not getting better came to the ER. Patient is alert and oriented and able to give history. Family in the room. and daughter and son and son-in-law in the room. Patient denies any headache. No runny nose or sore throat. Has some dry cough. Lately has some shortness of breath. No fevers. Denies any chest pain. No nausea. No recent weight gain or weight loss. No abdominal pain. Normal bowel and bladder movements. Denies blood in the stools or black stools. No hematuria. Speech is okay. Strokelike symptom Presents with right upper extremity weakness CTA head and neck unremarkable CT head shows low-attenuation area in the subcortical aspect of left frontoparietal region slightly extending to the adjacent mae radiata. Possibility of vasogenic edema due to underlying metastatic lesion could not be excluded considering right upper lung mass and metastatic mediastinal nodes on CT neck angiography. Will hold aspirin for possible metastatic brain disease Will follow MRI brain Neuro consult for further recommendation Lung mass Pleural effusion CTA chest shows 61X 39X 42 mm enhancing masslike consolidation noted in the right upper lobe extending of the right hilum likely neoplastic etiology. Pulmonary embolism. Moderate right pleural effusion with subsegmental collapse of the right lower lobe Enlarged perivascular, pre and paratracheal, right perihilar and subcarinal lymph nodes. Pulmonary consult for further recommendation Acute pulmonary embolism Filling defects involving left lower lobar artery and its proximal segmental branches suggestive pulm embolism Because of the brain lesions we will start on low-dose IV heparin without bolus Discussed with the family about the risk of brain bleed. patient ok for heparin Close monitoring and stat CT head for any changes in patient condition Pulmonary consulted. Hypertension Elevated Continue home losartan IV labetalol as needed Hyperlipidemia Continue statin History of hereditary spherocytosis Status post splenectomy DVT prophylaxis On low-dose IV heparin Disposition Telemetry Full code. History of Present Illness Chief Complaint: Strokelike symptoms Primary Care Provider: Ghislaine Cunningham DO 75-year-old female with past medical history significant for hypertension, hyperlipidemia, osteoporosis, hereditary spherocytosis, history of splenectomy presents with strokelike symptoms. Since last evening patient noticed right hand weakness and as was not getting better came to the ER. Patient is alert and oriented and able to give history. Family in the room. and daughter and son and son-in-law in the room. Patient denies any headache. No runny nose or sore throat. Has some dry cough. Lately has some shortness of breath. No fevers. Denies any chest pain. No nausea. No recent weight gain or weight loss. No abdominal pain. Normal bowel and bladder movements. Denies blood in the stools or black stools. No hematuria. Speech is okay. Past medical history. As mentioned above. Past surgical history. Cataract complex surgery. Colonoscopy. Cystoscopy. Splenectomy. Cholecystectomy. Social history. . Quit smoking 2006. Smoked 0.5 pack a day for 30 years. No alcohol use. No drug use. Family history. Father had bladder cancer. Mother had heart disorder. Brother had heart disorder. Allergies Allergy/AdvReac Type Severity Reaction Status Date / Time No Known Allergies Allergy Unverified 08/14/25 11:48 Home Medications Medication Instructions Recorded Confirmed Type aspirin 81 mg tablet,delayed 81 mg PO DAILY 10/13/25 10/13/25 History release atorvastatin 40 mg tablet 40 mg PO DAILY 10/13/25 10/13/25 History cholecalciferol (vitamin D3) 50 50 mcg PO DAILY 10/13/25 10/13/25 History mcg (2,000 unit) capsule (Vitamin D3) hydroxyzine HCl 25 mg tablet 25 mg PO Q6H PRN Itching 10/13/25 10/13/25 History losartan 100 mg tablet 100 mg PO DAILY 10/13/25 10/13/25 History Past Med/Surg History Problem List (Updated 10/13/25 @ 07:59 by Irma Jenkins DO) Elevated troponin (Acute) Weakness of right lower extremity (Acute) RUE weakness (Acute) Hypoxia (Acute) Pulmonary emboli (Acute) Mass of right lung (Acute) Stroke-like symptom COPD suggested by initial evaluation (Acute) Hypomagnesemia Demand ischemia Coronavirus infection Left lower lobe pneumonia (Acute) Acute sepsis Medical History Dyslipidemia Hypertension Social History Smoking Status: Former smoker Second Hand Exposure: No; Do You Dip or Chew Tobacco: No; Hx Alcohol Use: Yes Alcohol type: wine Hx Substance Use: No Preferred Language: Georgian Communication Ability: Effective 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 Head- atraumatic Eyes- PERRL, EOMI. ENT- oropharynx clear Neck- supple, no JVD. Lungs- clear to auscultation no wheezing or crackles Heart- regular rhythm; no murmur, no gallop. Abdomen- normal bowel sounds, soft, nontender, no distension Extremities- no pretibial edema, no erythema seen Neuro- alert, oriented PERRL, EOMI; no facial palsy; no dysarthria; motor 5/5 all extremities except right upper extremity 2/5. Right upper extremity pronator drift present, sensations intact, position sense intact. Skin- warm & dry Results & Data Results & Data Vital Signs (Past 12 Hours) Vital Signs Temp Pulse Resp BP Pulse Ox O2 Del Method O2 Flow Rate 10/13/25 04:54 102 H 18 214/110 H 95 3 10/13/25 03:08 97 H 18 174/133 H 93 Nasal Cannula 3 10/13/25 03:07 87 L Room Air 10/13/25 02:17 102 H 10/13/25 02:01 36.8 C 109 H 18 183/123 H 92 Diagnostic Findings Laboratory Results WBC 16.35 K/ul (4.8-10.8) H 10/13/25 02:23 RBC 5.60 M/uL (4.20-5.40) H 10/13/25 02:23 Hgb 16.3 g/dL (12.0-16.0) H 10/13/25 02:23 Hct 46.0 % (37.0-47.0) 10/13/25 02:23 MCV 82.1 fL (80.0-100.0) 10/13/25 02:23 MCH 29.1 pg (25.0-34.0) 10/13/25 02:23 MCHC 35.4 g/dL (32.0-36.0) 10/13/25 02:23 RDW Std Deviation 40.0 fL (36.4-46.3) 10/13/25 02:23 RDW Coeff of Nathaniel 13.6 % (11.5-14.5) 10/13/25 02:23 Plt Count 273 K/uL (130-400) 10/13/25 02:23 MPV 9.3 fL (9.4-12.4) L 10/13/25 02:23 Immature Gran % (Auto) 0.4 % 10/13/25 02:23 Neut % (Auto) 73.4 % 10/13/25 02:23 Lymph % (Auto) 12.4 % 10/13/25 02:23 [place] % (Auto) 11.0 % 10/13/25 02:23 Eos % (Auto) 2.3 % 10/13/25 02:23 Baso % (Auto) 0.5 % 10/13/25 02:23 Neut # (Auto) 12.01 K/uL (1.40-6.50) H 10/13/25 02:23 Lymph # (Auto) 2.02 K/uL (1.20-3.40) 10/13/25 02:23 [place] # (Auto) 1.80 K/uL (0.11-0.59) H 10/13/25 02:23 Eos # (Auto) 0.38 K/uL (0.00-0.50) 10/13/25 02:23 Baso # (Auto) 0.08 K/uL (0.00-0.20) 10/13/25 02:23 Immature Gran # (Auto) 0.06 K/uL (0.01-0.20) 10/13/25 02:23 PT 11.9 Seconds (9.0-12.0) 10/13/25 02:23 INR 1.1 (0.9-1.1) 10/13/25 02:23 APTT 27 Seconds (21-31) 10/13/25 02:23 PTT Ratio 1.0 10/13/25 02:23 Sodium 141 mmol/L (136-145) 10/13/25 02:23 Potassium 3.7 mmol/L (3.5-5.1) 10/13/25 02:23 Chloride 108 mmol/L (98-107) H 10/13/25 02:23 Carbon Dioxide 23 mmol/L (21-32) 10/13/25 02:23 Anion Gap 10 (3-11) 10/13/25 02:23 BUN 13 mg/dl (6-23) 10/13/25 02:23 Creatinine 0.74 mg/dl (0.6-1.2) 10/13/25 02:23 Est Cr Clr Drug Dosing 60.0 ml/min 10/13/25 02:23 eGFR 84.85 10/13/25 02:23 BUN/Creatinine Ratio 17.6 (10-20) 10/13/25 02:23 Glucose 126 mg/dl (70-99(Fasting)) H 10/13/25 02:23 POC Glucose 117 mg/dl (70-99) H 10/13/25 02:34 Calcium 8.9 mg/dl (8.6-10.3) 10/13/25 02:23 Magnesium 1.8 mg/dl (1.7-2.4) 10/13/25 02:23 Total Bilirubin 1.0 mg/dl (0.2-1.0) 10/13/25 02:23 AST 19 U/L (13-39) 10/13/25 02:23 ALT 12 U/L (7-52) 10/13/25 02:23 Alkaline Phosphatase 106 U/L (34-104) H 10/13/25 02:23 Troponin I High Sens 290.7 pg/ml (0-14) H* 10/13/25 04:05 Total Protein 6.9 gm/dl (6.0-8.3) 10/13/25 02:23 Albumin 3.8 gm/dl (3.4-5.0) 10/13/25 02:23 Globulin 3.1 gm/dl (2.5-4.0) 10/13/25 02:23 Albumin/Globulin Ratio 1.2 (0.9-2) 10/13/25 02:[address] 10/13/25 02:23 EXAM: CT head/brain wo con CLINICAL HISTORY: Neuro deficit, acute stroke suspected. TECHNIQUE: Axial non-contrast CT scan of the brain was performed from the skull base to the high parietal region .One of the following dose reduction techniques were utilized for this exam: Automated exposure control, adjustment of the mA and/or kV according to patient size, use of iterative reconstruction. COMPARISON: CT head and neck angiography same date reviewed FINDINGS: Brain Parenchyma: Focal low attenuation area in the subcortical aspect of left fronto-parietal region, slightly extending in the adjacent mae radiata. Possibility of vasogenic edema due to underlying metastatic lesion could not be excluded considering right upper lung mass lesion in the CT neck angiography images. Other possible differential could be chronic ischemic changes. Images 15- There are ill-defined iso-to hypodense areas in the subcortical and periventricular white matter bilaterally, representing chronic microvascular ischemic changes. The rest of visualized brain parenchyma shows normal appearance. No intracerebral or extra axial hematoma. Ventricular System: Prominent ventricular system. Subarachnoid Spaces: The cortical sulci and basal cisterns are prominent, consistent with senile changes. Cerebellum and Brainstem: No masses, lesions, or areas of abnormal density. Orbits: Normal appearance of the globes, optic nerves, and extraocular muscles. No evidence of orbital masses or abnormal density. Visualised Paranasal sinuses: Clear paranasal sinuses. Left sided nasal septal deviation . Mastoid Air Cells: Clear mastoid air cells. Skull and soft tissue: Tiny lucent areas in the skull, indeterminate in nature. Possibility of metastases cannot be excluded. IMPRESSION: 1. Focal low attenuation area in the subcortical aspect of left fronto-parietal region, slightly extending in the adjacent mae radiata. Possibility of vasogenic edema due to underlying metastatic lesion could not be excluded considering right upper lung mass lesion and metastatic mediastinal nodes in the CT neck angiography images. Other possible differential could be chronic ischemic changes. Recommended dedicated MR contrast enhancing examination for further evaluation 2. Chronic microvascular ischemic changes and senile cortical atrophy. [facility] ER was called at [phone] at 03:08 AM EST, 10/13/2025, and BINA Blanco was informed regarding the presence of significant medical findings in the stroke report. Electronically signed by Mj Meade 10-13-2025 03:12 AM Head CTA 10/13/25 02:23 EXAM: CT angio head w con CLINICAL HISTORY: Neuro deficit, acute stroke suspected TECHNIQUE: Axial CT angiography of the head was done with contrast and sagittal and coronal reformats with MIP reconstructions. One of the following dose reduction techniques were utilized for this exam: Automated exposure control, adjustment of the mA and/or kV according to patient size, use of iterative reconstruction. One of these 3D techniques was utilized: Maximum Intensity Pixel (MIP), 3D Reconstructed Images, Volume Rendered Images, Surface Shaded Rendering. COMPARISON: CT head same date reviewed FINDINGS: Intracranial Arteries: The intracranial portions of bilateral internal carotid arteries show calcified plaques with upto 10% luminal narrowing. Bilateral middle cerebral arteries are normal in caliber and contrast opacification. Hypoplastic A1 segment of left anterior cerebral artery, normal variant. Rest of bilateral anterior cerebral arteries appear normal in caliber and contrast opacification. The basilar artery and bilateral posterior cerebral arteries appear normal in caliber and contrast opacification. The visualized vertebral arteries appear normal in caliber and contrast opacification. IMPRESSION: 1. No critical stenosis in CT angiography of the head. 2. Mild atherosclerotic changes in intracranial portions of bilateral internal carotid arteries. [facility] ER was called at [phone] at 03:08 AM EST, 10/13/2025, and BINA Blanco was informed regarding the negative stroke findings in the report. Electronically signed by Mj Meade 10-13-2025 03:12 AM Neck CTA 10/13/25 02:23 EXAM: CT angio neck with con CLINICAL HISTORY: Neuro deficit, acute stroke suspected. TECHNIQUE: Axial CT angiography of the neck was done with contrast and sagittal and coronal reformats with MIP reconstructions. One of the following dose reduction techniques were utilized for this exam: Automated exposure control, adjustment of the mA and/or kV according to patient size, use of iterative reconstruction. One of these 3D techniques was utilized: Maximum Intensity Pixel (MIP), 3D Reconstructed Images, Volume Rendered Images, Surface Shaded Rendering. COMPARISON: None. FINDINGS: The aortic arch shows atherosclerotic changes with calcified plaques. Normal branching pattern noted. Carotid Arteries: Bilateral common carotid arteries appear normal in caliber and contrast opacification. Calcified plaques are seen at bilateral carotid bulbs and osteoproximal segments of internal carotid arteries, causing nearly 10%-20% luminal narrowing on the right side and minimal 5%-10% luminal narrowing on the left side. The rest of cervical portions of bilateral internal carotid arteries appear normal in caliber and contrast opacification. Bilateral external carotid arteries appear normal in caliber and contrast opacification. Vertebral Arteries: Mild relative narrowing of right vertebral artery is dominant left vertebral artery, normal variant. Subclavian Arteries: Calcified plaques ostioproximal segments noted. No evidence of significant stenosis, occlusion, or aneurysm. Thyroid Gland: Hypodense nodules in both lobes of thyroid gland, largest measuring 12 mm. Visualised chest: Neoplastic heterogeneously enhancing spiculated mass lesion in the medial aspect of right lower lobe in parahilar location, measuring 4 x 3.2 cm in axial plane with adjacent haziness and interstitial thickening in the visualized right upper lobe, possibility of lymphangitic carcinomatosis. Moderate right sided pleural effusion noted with nodular thickening of the major fissure. Multiple necrotic and heterogeneously enhancing right supraclavicular and mediastinal nodes noted, largest measuring 20 x 15 mm.. Centrilobular and paraseptal emphysematous changes in the visualized lung hartman.. Cervical Spine: Degenerative changes in cervical spine. Tiny sclerotic densities in the cervical spine. IMPRESSION: 1. No critical stenosis in CT angiography of neck. 2. Neoplastic heterogeneously enhancing spiculated mass lesion in the medial aspect of right lower lobe in parahilar location, measuring 4 x 3.2 cm in axial plane with adjacent haziness and interstitial thickening in the visualized right upper lobe, possibility of lymphangitic carcinomatosis. Recommended dedicated CT chest examination with further workup. 3. Moderate right sided pleural effusion noted with nodular thickening of the major fissure. 4. Multiple necrotic and heterogeneously enhancing right supraclavicular and mediastinal nodes noted, largest measuring 20 x 15 mm. 5. Hypodense nodules in both lobes of thyroid gland, largest measuring 12 mm. Recommended ultrasound evaluation 6. Calcified plaques at bilateral carotid bulbs and osteoproximal segments of internal carotid arteries, causing nearly 10%-20% luminal narrowing on the right side and minimal 5%-10% luminal narrowing on the left side. [facility] ER was called at [phone] at 03:15 AM EST, 10/13/2025, and KALI Glass was informed regarding the presence of significant medical findings in the stroke report. Electronically signed by Mj Meade 10-13-2025 03:17 AM Chest X-Ray 10/13/25 02:37 EXAM: XR chest 1V not portable CLINICAL HISTORY: cough TECHNIQUE: An X-ray image of the chest is obtained in AP projection. COMPARISON: 12/08/2024 12:30:29 RECYCLING ATTENDANT. FINDINGS: Mild right pleural effusion with basal subsegmental collapse of right lower lobes are seen. Ill-defined ground-glass opacities noted in right mid-lower zone - appears congestive changes. The cardiomediastinal silhouette is within normal limits. No acute osseous abnormality. IMPRESSION: Mild right pleural effusion with basal subsegmental collapse of right lower lobes are seen.-new finding. Ill-defined ground-glass opacities noted in right mid-lower zone - appears congestive changes.-new finding. Electronically signed by Salvador Rodríguez 10-13-2025 04:09 AM Chest CTA 10/13/25 03:04 EXAM: CT angio chest PE protocol CLINICAL HISTORY: PE TECHNIQUE: Contiguous axial images were obtained from the neck base through the upper abdomen following intravenous administration of iodinated contrast material. Angiographic images were processed, 3D MIP images were acquired for interpretation. If IV contrast material had not been administered, the likelihood of detecting abnormalities relevant to the patient's condition would have been substantially decreased. Coronal and sagittal 3-D MIPs were likewise performed and indicated to increase the sensitivity of detectin diffuse clinically relevant pathology. CT scan was performed according to ALARA (as low as reasonably achievable). COMPARISON: None. FINDINGS: Approximately 61 x 39 x 42 mm sized heterogeneously enhancing mass like consolidation is noted involving right upper lobe, extending up to the right hilum. - likely neoplastic etiology - histopathological evaluation suggested. Evidence of intraluminal hypodense filling defect is noted involving left lower lobar artery and its proximal segmental branches - suggestive of embolism. Diffuse smooth interlobular septal thickening with superimposed ground-glass opacities are noted involving bilateral lungs - suggestive of pulmonary congestion Mild dilatation of pulmonary trunk ,bilateral main pulmonary artery up to subsegmental level with mild tortuosity - suggest possibility of pulmonary arterial hypertension. Mild cardiomegaly with moderate pericardial effusion. Moderate right pleural effusion with basal subsegmental collapse of right lower lobes are seen. Multiple enlarged prevascular, pre and paratracheal, right perihilar and subcarinal lymph nodes are seen - largest measures 33 mm The central airways are patent. There are coronary artery and aortic atherosclerotic calcifications. The thyroid is unremarkable. No suspicious lytic or sclerotic osseous lesions are identified. IMPRESSION: 1. Approximately 61 x 39 x 42 mm sized heterogeneously enhancing mass like consolidation is noted involving right upper lobe, extending up to the right hilum. - likely neoplastic etiology - histopathological evaluation suggested. 2. Evidence of intraluminal hypodense filling defect is noted involving left lower lobar artery and its proximal segmental branches - suggestive of embolism. 3. Diffuse smooth interlobular septal thickening with superimposed ground-glass opacities are noted involving bilateral lungs - suggestive of pulmonary congestion 4. Mild dilatation of pulmonary trunk ,bilateral main pulmonary artery up to subsegmental level with mild tortuosity - suggest possibility of pulmonary arterial hypertension. 5. Mild cardiomegaly with moderate pericardial effusion.Moderate right pleural effusion with basal subsegmental collapse of right lower lobes are seen. 6. Multiple enlarged prevascular, pre and paratracheal, right perihilar and subcarinal lymph nodes are seen - largest measures 33 mm Electronically signed by Salvador Rodríguez 10-13-2025 04:04 AM ECG Additional Comments: ECG. Sinus tachycardia rate of 101. Nonspecific T wave abnormalities. T wave inversions anterior leads. QTc 440 Code Status & VTE Plan VTE Prophylaxis Plan VTE Prophylaxis will be ordered: Yes
[2025-10-13] MEDS ORDERED: ACETAMINOPHEN 325 MG TAB PO PRN (06:17)
[2025-10-13] MEDS ORDERED: POLYETHYLENE (MIRALAX) 17 GM PACK PO PRN (06:17)
[2025-10-13] MEDS ORDERED: NITROGLYCERIN SL 0.4 MG/TAB TAB SL PRN (06:17)
[2025-10-13] MEDS ORDERED: PHARMACIST DISCHARGE MED REC CONSULT PRN (06:17)
[2025-10-13] MEDS: HEPARIN 25000 UNIT/500 ML D5W 25,000 UNITS/500 ML BAG IV SCH (06:32)
[2025-10-13] MEDS: SODIUM CHLORIDE 0.9% 1,000 ML IV SCH (06:32)
[2025-10-13] MEDS: Heparin IV Adult Wt-Based Low-Dose *NO* INITIAL Bolus Protocol IV STA (06:32)
--- NOTE | 2025-10-13 07:59 | Emergency Department Note ---
Impression & Plan Mass of right lung, Pulmonary emboli, Hypoxia, RUE weakness, Weakness of right lower extremity, Elevated troponin admit to the [facility] ED Provider Note NAME: THUY PEARL AGE: 75 SEX: Female INFORMANT: Patient ED PROVIDER(S): Irma Jenkins DO CHIEF COMPLAINT: Right hand weakness PLAN: Disposition: Admit to the [facility] MEDICAL DECISION MAKING: This is a 75-year-old female patient with a previous history of pneumonia who presents to the emergency department with a sudden onset of right hand weakness around 7 PM this evening. 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 Vital Signs: reviewed and remarkable for hypertension and tachycardia Additional History obtained from: patient's Prior/ Outside/ External records reviewed: I did review chest x-ray from November of this year for comparison to today's x-ray Differential Diagnosis: acute CVA, brachial plexopathy, TIA, embolic stroke, metastatic disease to the brain Diagnostics, independently interpreted by me: ECG: sinus tachycardia at a rate of [address] segment elevation or signs of ischemia. There is no ectopy. Cardiac Monitoring: Normal sinus rhythm at a rate of 96 Imaging studies: portable chest x-ray: Right sided pleural effusion and right middle lobe opacities CT scan of the brain: As per Imbro CTA of the brain: As per Imbro CTA of the neck: As per Imbro CTA of the chest:As per Imbro HPI: 75 year old Female arrives for evaluation of Right hand weakness. At 7 PM this evening, the patient was watching TV with her when she noted that she had numbness and tingling throughout the right upper extremity. She then noticed that she was having difficulty moving her right hand. She got up to walk around and felt as if her equilibrium was off. She went to bed and was hoping that symptoms would improve but they did not. Upon waking up at midnight, the right arm was significantly weak and she decided to seek medical care. PAST MEDICAL HISTORY: See Below, PAST SURGICAL HISTORY: See Below, SOCIAL HISTORY: lives with her family, patient describes smoking when she was in her teens. HOME MEDICATIONS: see list ALLERGIES: none VITALS: See Below PHYSICAL EXAMINATION: HEENT: Head - normocephalic and atraumatic. Pupils are equal, round, and reactive to light. Extraocular eye muscles are intact and sclera are anicteric. Ears - bilaterally patent canals with noninjected tympanic membranes and no evidence of hemotympanum. Nose - moist nasal mucosa without discharge. Mouth - moist buccal mucosa. Oropharynx is nonerythematous and there is no tonsillar exudate or edema noted. Neck: Supple; no JVD, nuchal rigidity, cervical lymphadenopathy, or auscultated bruits. Heart: Tachycardic rate and rhythm. There is a normal S1 and S2 with no murmurs, clicks, or gallops appreciated. Lungs: diminished breath sounds at the right lung base. No obvious wheezing Abdomen: Soft, completely nontender, nondistended, with good bowel sounds. There are no palpable pulsatile masses or hepatosplenomegaly. There is no guarding, rigidity, or rebound noted. Extremities: No evidence of cyanosis, clubbing, or edema. There are easily palpable peripheral pulses. Neuro:The patient is awake and alert, oriented to day, time, and place. patient has weakness in her right upper extremity. She has limited tree chipper strength to the right hand and weakness at the elbow and shoulder. Muscle strength is 3/5 at the wrist, elbow and shoulder. The right leg is also weak. Muscle strength is 4/5 at the right hip and knee with pedal push and pull that is normal Emergency department treatment: monitor tech, supplemental oxygen Emergency Department course: The patient was evaluated in room A-2 as a stroke alert. A complete history and physical was performed. Patient was noted to be hypoxic on room air was placed on supplemental oxygen. An order was placed for continuous cardiac monitoring. The patient was in a sinus tachycardia at a rate of 112. Twelve-lead EKG was obtained. Patient went for CT angiogram of the brain and neck along with CT scan of the brain. Of note on the CT of the neck, there was concern for a possible mass in the right upper lobe of the lung. Portable chest x-ray was performed which showed evidence of opacity in the right middle lung, pleural effusion and partial collapse to the lung. This warranted CTA of the chest to further evaluate this possible mass and to rule out a PE as the patient was hypoxic. I kept the patient and her family abreast of the situation. I discussed the case with the [facility] Hospitalist as the patient has a large right sided pulmonary mass with pulmonary emboli. on CT scan of the brain, there was a finding concerning for possible metastatic disease, although the patient's right upper and lower extremity weakness may represent more embolic phenomena. She will require MRI of the brain. Patient is noted to have an elevated troponin. I have personally spent greater than 85 minutes of critical care time in the direct management of this patient. This includes bedside care, interpretation of diagnostic studies, and testing, discussion with consultants, patient, and family members, and other required patient management activities. This 85 minutes is in excess of all separately billable procedures. Past Med/Surg History Problem List (Updated 10/13/25 @ 10:54 by Jacque Andrew MD) CVA (cerebral vascular accident) Pleural effusion Lung mass Brain mass Elevated troponin (Acute) Weakness of right lower extremity (Acute) RUE weakness (Acute) Hypoxia (Acute) Pulmonary emboli (Acute) Mass of right lung (Acute) Stroke-like symptom COPD suggested by initial evaluation (Acute) Hypomagnesemia Demand ischemia Coronavirus infection Left lower lobe pneumonia (Acute) Acute sepsis Medical History Dyslipidemia Hypertension Social History Smoking Status: Former smoker Second Hand Exposure: Yes; Do You Dip or Chew Tobacco: No; Hx Alcohol Use: No Hx Substance Use: No Preferred Language: Wolof Communication Ability: Effective Clearing Supervisor Required: No Beliefs That Will Affect Care: None Current Living Situation: Spouse Feels Safe at Home: Yes Assistive Devices: Glasses Allergies Allergies Allergy/AdvReac Type Severity Reaction Status Date / Time No Known Allergies Allergy Unverified 08/14/25 11:48 Home Meds Home Medications Medication Instructions Recorded Confirmed aspirin 81 mg tablet,delayed 81 mg PO DAILY 10/13/25 10/13/25 release atorvastatin 40 mg tablet 40 mg PO DAILY 10/13/25 10/13/25 cholecalciferol (vitamin D3) 50 50 mcg PO DAILY 10/13/25 10/13/25 mcg (2,000 unit) capsule (Vitamin D3) hydroxyzine HCl 25 mg tablet 25 mg PO Q6H PRN Itching 10/13/25 10/13/25 losartan 100 mg tablet 100 mg PO DAILY 10/13/25 10/13/25 Results & Data (ED) Vital Signs Vital Signs - 24 hr 10/13/25 02:01 10/13/25 02:17 10/13/25 03:07 Temperature 36.8 C Temperature Source Oral Pulse Rate 109 H 102 H Pulse Rate from SpO2 Sensor Respiratory Rate 18 Blood Pressure 183/123 H Blood Pressure Mean 143 Pulse Oximetry 92 87 L Oxygen Delivery Method Room Air Oxygen Flow Rate Sepsis Recent Fever Within 48 Hours No Sepsis New/Unexplained Change in Mental Status N/A Sepsis Action Taken by Nursing No Action Required 10/13/25 03:08 10/13/25 04:54 10/13/25 05:00 Temperature Temperature Source Pulse Rate 97 H 102 H 101 H Pulse Rate from SpO2 Sensor 101 H Respiratory Rate 18 18 27 H Blood Pressure 174/133 H 214/110 H Blood Pressure Mean 146 144 Pulse Oximetry 93 95 96 Oxygen Delivery Method Nasal Cannula Oxygen Flow Rate 3 3 Sepsis Recent Fever Within 48 Hours Sepsis New/Unexplained Change in Mental Status Sepsis Action Taken by Nursing 10/13/25 05:11 10/13/25 05:20 Temperature Temperature Source Pulse Rate 101 H 95 H Pulse Rate from SpO2 Sensor 95 H Respiratory Rate 20 22 Blood Pressure Blood Pressure Mean Pulse Oximetry 96 Oxygen Delivery Method Oxygen Flow Rate Sepsis Recent Fever Within 48 Hours Sepsis New/Unexplained Change in Mental Status Sepsis Action Taken by Nursing Laboratory Data 10/13/25 02:23 10/13/25 02:23 Lab Results 10/13/25 10/13/25 10/13/25 Range/Units 02:23 02:34 04:05 WBC 16.35 H (4.8-10.8) K/ul RBC 5.60 H (4.20-5.40) M/uL Hgb 16.3 H (12.0-16.0) g/dL Hct 46.0 (37.0-47.0) % MCV 82.1 (80.0-100.0) fL MCH 29.1 (25.0-34.0) pg MCHC 35.4 (32.0-36.0) g/dL RDW Std Deviation 40.0 (36.4-46.3) fL RDW Coeff of Nathaniel 13.6 (11.5-14.5) % Plt Count 273 (130-400) K/uL MPV 9.3 L (9.4-12.4) fL Immature Gran % (Auto) 0.4 % Neut % (Auto) 73.4 % Lymph % (Auto) 12.4 % Knott % (Auto) 11.0 % Eos % (Auto) 2.3 % Baso % (Auto) 0.5 % Neut # (Auto) 12.01 H (1.40-6.50) K/uL Lymph # (Auto) 2.02 (1.20-3.40) K/uL Knott # (Auto) 1.80 H (0.11-0.59) K/uL Eos # (Auto) 0.38 (0.00-0.50) K/uL Baso # (Auto) 0.08 (0.00-0.20) K/uL Immature Gran # (Auto) 0.06 (0.01-0.20) K/uL PT 11.9 (9.0-12.0) Seconds INR 1.1 (0.9-1.1) APTT 27 (21-31) Seconds PTT Ratio 1.0 Sodium 141 (136-145) mmol/L Potassium 3.7 (3.5-5.1) mmol/L Chloride 108 H (98-107) mmol/L Carbon Dioxide 23 (21-32) mmol/L Anion Gap 10 (3-11) BUN 13 (6-23) mg/dl Creatinine 0.74 (0.6-1.2) mg/dl Est Cr Clr Drug Dosing 60.0 ml/min eGFR 84.85 BUN/Creatinine Ratio 17.6 (10-20) Glucose 126 H (70-99(Fasting)) mg/dl POC Glucose 117 H (70-99) mg/dl Calcium 8.9 (8.6-10.3) mg/dl Magnesium 1.8 (1.7-2.4) mg/dl Total Bilirubin 1.0 (0.2-1.0) mg/dl AST 19 (13-39) U/L ALT 12 (7-52) U/L Alkaline Phosphatase 106 H (34-104) U/L Troponin I High Sens 283.3 H* 290.7 H* (0-14) pg/ml Total Protein 6.9 (6.0-8.3) gm/dl Albumin 3.8 (3.4-5.0) gm/dl Globulin 3.1 (2.5-4.0) gm/dl Albumin/Globulin Ratio 1.2 (0.9-2) Administered Medications Atorvastatin Calcium (Atorvastatin 40 Mg Tab) 40 mg PO DAILY MARCIE Stop: 11/12/25 08:59 Last Admin: 10/13/25 08:41 Dose: 40 mg Documented By: ML Sodium Chloride (Nss) 1,000 mls @ 80 mls/hr IV .[id number] MARCIE Stop: 10/16/25 06:16 Last Admin: 10/13/25 20:53 Dose: 80 mls/hr Documented By: Infusion: 10/13/25 19:02 Dose: Infused Documented By: Admin: 10/13/25 06:32 Dose: 80 mls/hr Documented By: THOMAS Heparin Sodium/Dextrose (Heparin 60093 Unit/500 Ml D5w) 25,000 units in 500 mls @ 16 mls/hr IV .Q24H MARCIE; Protocol Stop: 11/12/25 06:16 Last Titration: 10/13/25 19:22 Dose: 800 units/hr, 16 mls/hr Documented By: LMP Co-signed By: XIN Titration: 10/13/25 12:29 Dose: 700 units/hr, 14 mls/hr Documented By: RAMONA Co-signed By: ARS Titration: 10/13/25 08:35 Dose: 0 units/hr, 0 mls/hr Documented By: ML Co-signed By: CC Admin: 10/13/25 06:32 Dose: 700 units/hr, 14 mls/hr Documented By: THOMAS Co-signed By: CORI Losartan Potassium (Losartan Potassium 50 Mg Tab) 100 mg PO DAILY MARCIE Stop: 11/12/25 08:59 Last Admin: 10/13/25 08:41 Dose: 100 mg Documented By: ML Vitamin D (Cholecalciferol 25 Mcg (1000 Units) Tab) 50 mcg PO DAILY MARCIE Stop: 11/12/25 08:59 Last Admin: 10/13/25 08:41 Dose: 50 mcg Documented By: ML Discontinued Medications Epinephrine HCl (Epinephrine Inj 1 Mg/Ml Vial) 1 mg INSTIL NOW ONE Stop: 10/13/25 12:02 Last Admin: 10/13/25 14:05 Dose: Not Given Documented By: ML Gadobutrol (Gadobutrol 65ml Vial) 6 ml IV ONCE ONE Stop: 10/13/25 10:06 Last Admin: 10/13/25 10:05 Dose: 6 ml Documented By: EZEQUIEL Heparin Sodium (Porcine) (Heparin Sod (Porcine) 1000 Unit/Ml) 2,000 units IV NOW ONE Stop: 10/13/25 19:22 Last Admin: 10/13/25 19:32 Dose: 2,000 units Documented By: LMP Co-signed By: XIN Heparin Sodium/Dextrose (Heparin Iv Adult Wt-Based Low-Dose *No* Initial Bolus Protocol) 1 each IV ONE STA; Protocol Stop: 10/13/25 06:18 Last Admin: 10/13/25 06:32 Dose: Not Given Documented By: THOMAS Ioversol (Optiray 320 125ml) 125 ml IV ONCE ONE Stop: 10/13/25 02:38 Last Admin: 10/13/25 02:37 Dose: 118 ml Documented By: LYLE Ioversol (Optiray 320 125ml) 125 ml IV ONCE ONE Stop: 10/13/25 03:15 Last Admin: 10/13/25 03:15 Dose: 118 ml Documented By: LYLE Ioversol (Optiray 320 100ml) 93 ml IV ONCE ONE Stop: 10/13/25 11:20 Last Admin: 10/13/25 11:19 Dose: 93 ml Documented By: DAISY Lidocaine HCl (Lidocaine 2% Local 50 Ml Vial) 20 ml INSTIL NOW ONE Stop: 10/13/25 12:02 Last Admin: 10/13/25 14:06 Dose: Not Given Documented By: RAMONA Loperamide HCl (Loperamide Hcl 2 Mg Cap) 2 mg PO NOW STA Stop: 10/13/25 22:35 Last Admin: 10/13/25 22:53 Dose: 2 mg Documented By: XIN Tranexamic Acid (Tranexamic Acid 100 Mg/Ml 10 Ml Vial) 100 mg INSTIL NOW ONE Stop: 10/13/25 12:02 Last Admin: 10/13/25 14:06 Dose: Not Given Documented By: RAMONA Imaging Data Radiologist's Impression: Head CT 10/13/25 02:23 EXAM: CT head/brain wo con CLINICAL HISTORY: Neuro deficit, acute stroke suspected. TECHNIQUE: Axial non-contrast CT scan of the brain was performed from the skull base to the high parietal region .One of the following dose reduction techniques were utilized for this exam: Automated exposure control, adjustment of the mA and/or kV according to patient size, use of iterative reconstruction. COMPARISON: CT head and neck angiography same date reviewed FINDINGS: Brain Parenchyma: Focal low attenuation area in the subcortical aspect of left fronto-parietal region, slightly extending in the adjacent mae radiata. Possibility of vasogenic edema due to underlying metastatic lesion could not be excluded considering right upper lung mass lesion in the CT neck angiography images. Other possible differential could be chronic ischemic changes. Images 15- There are ill-defined iso-to hypodense areas in the subcortical and periventricular white matter bilaterally, representing chronic microvascular ischemic changes. The rest of visualized brain parenchyma shows normal appearance. No intracerebral or extra axial hematoma. Ventricular System: Prominent ventricular system. Subarachnoid Spaces: The cortical sulci and basal cisterns are prominent, consistent with senile changes. Cerebellum and Brainstem: No masses, lesions, or areas of abnormal density. Orbits: Normal appearance of the globes, optic nerves, and extraocular muscles. No evidence of orbital masses or abnormal density. Visualised Paranasal sinuses: Clear paranasal sinuses. Left sided nasal septal deviation . Mastoid Air Cells: Clear mastoid air cells. Skull and soft tissue: Tiny lucent areas in the skull, indeterminate in nature. Possibility of metastases cannot be excluded. IMPRESSION: 1. Focal low attenuation area in the subcortical aspect of left fronto-parietal region, slightly extending in the adjacent mae radiata. Possibility of vasogenic edema due to underlying metastatic lesion could not be excluded considering right upper lung mass lesion and metastatic mediastinal nodes in the CT neck angiography images. Other possible differential could be chronic ischemic changes. Recommended dedicated MR contrast enhancing examination for further evaluation 2. Chronic microvascular ischemic changes and senile cortical atrophy. [facility] was called at [phone] at 03:08 AM EST, 10/13/2025, and BINA Blanco was informed regarding the presence of significant medical findings in the stroke report. Electronically signed by Mj Meade 10-13-2025 03:12 AM Head CTA 10/13/25 02:23 EXAM: CT angio head w con CLINICAL HISTORY: Neuro deficit, acute stroke suspected TECHNIQUE: Axial CT angiography of the head was done with contrast and sagittal and coronal reformats with MIP reconstructions. One of the following dose reduction techniques were utilized for this exam: Automated exposure control, adjustment of the mA and/or kV according to patient size, use of iterative reconstruction. One of these 3D techniques was utilized: Maximum Intensity Pixel (MIP), 3D Reconstructed Images, Volume Rendered Images, Surface Shaded Rendering. COMPARISON: CT head same date reviewed FINDINGS: Intracranial Arteries: The intracranial portions of bilateral internal carotid arteries show calcified plaques with upto 10% luminal narrowing. Bilateral middle cerebral arteries are normal in caliber and contrast opacification. Hypoplastic A1 segment of left anterior cerebral artery, normal variant. Rest of bilateral anterior cerebral arteries appear normal in caliber and contrast opacification. The basilar artery and bilateral posterior cerebral arteries appear normal in caliber and contrast opacification. The visualized vertebral arteries appear normal in caliber and contrast opacification. IMPRESSION: 1. No critical stenosis in CT angiography of the head. 2. Mild atherosclerotic changes in intracranial portions of bilateral internal carotid arteries. [facility] was called at [phone] at 03:08 AM EST, 10/13/2025, and BINA Blanco was informed regarding the negative stroke findings in the report. Electronically signed by Mj Meade 10-13-2025 03:12 AM Neck CTA 10/13/25 02:23 EXAM: CT angio neck with con CLINICAL HISTORY: Neuro deficit, acute stroke suspected. TECHNIQUE: Axial CT angiography of the neck was done with contrast and sagittal and coronal reformats with MIP reconstructions. One of the following dose reduction techniques were utilized for this exam: Automated exposure control, adjustment of the mA and/or kV according to patient size, use of iterative reconstruction. One of these 3D techniques was utilized: Maximum Intensity Pixel (MIP), 3D Reconstructed Images, Volume Rendered Images, Surface Shaded Rendering. COMPARISON: None. FINDINGS: The aortic arch shows atherosclerotic changes with calcified plaques. Normal branching pattern noted. Carotid Arteries: Bilateral common carotid arteries appear normal in caliber and contrast opacification. Calcified plaques are seen at bilateral carotid bulbs and osteoproximal segments of internal carotid arteries, causing nearly 10%-20% luminal narrowing on the right side and minimal 5%-10% luminal narrowing on the left side. The rest of cervical portions of bilateral internal carotid arteries appear normal in caliber and contrast opacification. Bilateral external carotid arteries appear normal in caliber and contrast opacification. Vertebral Arteries: Mild relative narrowing of right vertebral artery is dominant left vertebral artery, normal variant. Subclavian Arteries: Calcified plaques ostioproximal segments noted. No evidence of significant stenosis, occlusion, or aneurysm. Thyroid Gland: Hypodense nodules in both lobes of thyroid gland, largest measuring 12 mm. Visualised chest: Neoplastic heterogeneously enhancing spiculated mass lesion in the medial aspect of right lower lobe in parahilar location, measuring 4 x 3.2 cm in axial plane with adjacent haziness and interstitial thickening in the visualized right upper lobe, possibility of lymphangitic carcinomatosis. Moderate right sided pleural effusion noted with nodular thickening of the major fissure. Multiple necrotic and heterogeneously enhancing right supraclavicular and mediastinal nodes noted, largest measuring 20 x 15 mm.. Centrilobular and paraseptal emphysematous changes in the visualized lung hartman.. Cervical Spine: Degenerative changes in cervical spine. Tiny sclerotic densities in the cervical spine. IMPRESSION: 1. No critical stenosis in CT angiography of neck. 2. Neoplastic heterogeneously enhancing spiculated mass lesion in the medial aspect of right lower lobe in parahilar location, measuring 4 x 3.2 cm in axial plane with adjacent haziness and interstitial thickening in the visualized right upper lobe, possibility of lymphangitic carcinomatosis. Recommended dedicated CT chest examination with further workup. 3. Moderate right sided pleural effusion noted with nodular thickening of the major fissure. 4. Multiple necrotic and heterogeneously enhancing right supraclavicular and mediastinal nodes noted, largest measuring 20 x 15 mm. 5. Hypodense nodules in both lobes of thyroid gland, largest measuring 12 mm. Recommended ultrasound evaluation 6. Calcified plaques at bilateral carotid bulbs and osteoproximal segments of internal carotid arteries, causing nearly 10%-20% luminal narrowing on the right side and minimal 5%-10% luminal narrowing on the left side. [facility] was called at [phone] at 03:15 AM EST, 10/13/2025, and KALI Glass was informed regarding the presence of significant medical findings in the stroke report. Electronically signed by Mj Meade 10-13-2025 03:17 AM Chest X-Ray 10/13/25 02:37 EXAM: XR chest 1V not portable CLINICAL HISTORY: cough TECHNIQUE: An X-ray image of the chest is obtained in AP projection. 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 FINDINGS: Mild right pleural effusion with basal subsegmental collapse of right lower lobes are seen. Ill-defined ground-glass opacities noted in right mid-lower zone - appears congestive changes. The cardiomediastinal silhouette is within normal limits. No acute osseous abnormality. IMPRESSION: Mild right pleural effusion with basal subsegmental collapse of right lower lobes are seen.-new finding. Ill-defined ground-glass opacities noted in right mid-lower zone - appears congestive changes.-new finding. Electronically signed by Salvador Rodríguez 10-13-2025 04:09 AM Chest CTA 10/13/25 03:04 EXAM: CT angio chest PE protocol CLINICAL HISTORY: PE TECHNIQUE: Contiguous axial images were obtained from the neck base through the upper abdomen following intravenous administration of iodinated contrast material. Angiographic images were processed, 3D MIP images were acquired for interpretation. If IV contrast material had not been administered, the likelihood of detecting abnormalities relevant to the patient's condition would have been substantially decreased. Coronal and sagittal 3-D MIPs were likewise performed and indicated to increase the sensitivity of detectin diffuse clinically relevant pathology. CT scan was performed according to ALARA (as low as reasonably achievable). COMPARISON: None. FINDINGS: Approximately 61 x 39 x 42 mm sized heterogeneously enhancing mass like consolidation is noted involving right upper lobe, extending up to the right hilum. - likely neoplastic etiology - histopathological evaluation suggested. Evidence of intraluminal hypodense filling defect is noted involving left lower lobar artery and its proximal segmental branches - suggestive of embolism. Diffuse smooth interlobular septal thickening with superimposed ground-glass opacities are noted involving bilateral lungs - suggestive of pulmonary congestion Mild dilatation of pulmonary trunk ,bilateral main pulmonary artery up to subsegmental level with mild tortuosity - suggest possibility of pulmonary arterial hypertension. Mild cardiomegaly with moderate pericardial effusion. Moderate right pleural effusion with basal subsegmental collapse of right lower lobes are seen. Multiple enlarged prevascular, pre and paratracheal, right perihilar and subcarinal lymph nodes are seen - largest measures 33 mm The central airways are patent. There are coronary artery and aortic atherosclerotic calcifications. The thyroid is unremarkable. No suspicious lytic or sclerotic osseous lesions are identified. IMPRESSION: 1. Approximately 61 x 39 x 42 mm sized heterogeneously enhancing mass like consolidation is noted involving right upper lobe, extending up to the right hilum. - likely neoplastic etiology - histopathological evaluation suggested. 2. Evidence of intraluminal hypodense filling defect is noted involving left lower lobar artery and its proximal segmental branches - suggestive of embolism. 3. Diffuse smooth interlobular septal thickening with superimposed ground-glass opacities are noted involving bilateral lungs - suggestive of pulmonary congestion 4. Mild dilatation of pulmonary trunk ,bilateral main pulmonary artery up to subsegmental level with mild tortuosity - suggest possibility of pulmonary arterial hypertension. 5. Mild cardiomegaly with moderate pericardial effusion.Moderate right pleural effusion with basal subsegmental collapse of right lower lobes are seen. 6. Multiple enlarged prevascular, pre and paratracheal, right perihilar and subcarinal lymph nodes are seen - largest measures 33 mm Electronically signed by Salvador Rodríguez 10-13-2025 04:04 AM Discharge Plan Visit Data Chief Complaint: Stroke Alert Stated Complaint: right arm numbness ED Provider: Irma Jenkins Discharge Problem: Mass of right lung, Pulmonary emboli, Hypoxia, RUE weakness, Weakness of right lower extremity, Elevated troponin Patient Disposition: Admitted As Inpatient Condition: Critical Discharge Instructions Interventions: ED Discharge Assessment Last Done: 10/13/25 06:17
[2025-10-13] MEDS: ATORVASTATIN 40 MG TAB PO SCH (08:41)
[2025-10-13] MEDS: CHOLECALCIFEROL 25 MCG (1000 UNITS) TAB PO SCH (08:41)
[2025-10-13] MEDS: LOSARTAN POTASSIUM 50 MG TAB PO SCH (08:41)
--- NOTE | 2025-10-13 09:21 | XCELERA ---
[id number]
[2025-10-13] MEDS ORDERED: SUGAMMADEX SODIUM 200 MG/2 ML VIAL IV ONE (09:41)
[2025-10-13] MEDS ORDERED: DEXAMETHASONE SOD INJ 4 MG/ML VIAL ONE (09:41)
[2025-10-13] MEDS ORDERED: ROCURONIUM BROMIDE 10 MG/ML 5 ML VIAL IV ONE (09:41)
[2025-10-13] MEDS ORDERED: ONDANSETRON INJ 2 MG/ML 2 ML VIAL ONE (09:41)
[2025-10-13] MEDS ORDERED: PROPOFOL IV EMULSION 10 MG/ML 20 ML VIAL IV ONE (09:41)
[2025-10-13] MEDS ORDERED: MIDAZOLAM HCL 1 MG/ML 2ML VIAL ONE (09:41)
--- NOTE | 2025-10-13 09:46 | Anesthesiology Consultation ---
Date of Service October 13, 2025 Assessment & Plan Chart Review Chart Review: Acceptable Risk for Surgery and Patient NOT seen in Pre Admission Testing Consults Requested none ASA [id number] Proposed Anesthesia Anesthesia Type: General History Surgery Operation Date: 10/13/25 09:30 Proposed Procedures p Bronchoscopy - Jacque Andrew MD s Endobronchial Ultrasound - Jacque Andrew MD Height/Weight Height: 5 ft 5 in Weight: 60.6 kg Allergies Allergy/AdvReac Type Severity Reaction Status Date / Time No Known Allergies Allergy Unverified 08/14/25 11:48 Medications Home Medications Medication Instructions Recorded Confirmed Last Taken aspirin 81 mg tablet,delayed 81 mg PO DAILY 10/13/25 10/13/25 Unknown release atorvastatin 40 mg tablet 40 mg PO DAILY 10/13/25 10/13/25 Unknown cholecalciferol (vitamin D3) 50 50 mcg PO DAILY 10/13/25 10/13/25 Unknown mcg (2,000 unit) capsule (Vitamin D3) hydroxyzine HCl 25 mg tablet 25 mg PO Q6H PRN Itching 10/13/25 10/13/25 Unknown losartan 100 mg tablet 100 mg PO DAILY 10/13/25 10/13/25 Unknown Active Medications Generic Name Dose Route Start Last Admin Trade Name Freq PRN Reason Stop Dose Admin Atorvastatin Calcium 40 mg 10/13/25 09:00 10/13/25 08:41 Atorvastatin 40 Mg Tab PO 11/12/25 08:59 40 mg DAILY MARCIE Administration Sodium Chloride 1,000 mls @ 80 mls/hr 10/13/25 06:17 10/13/25 06:32 Nss IV 10/16/25 06:16 80 mls/hr .[id number] MARCIE Administration Heparin Sodium/Dextrose 25,000 units in 500 mls @ 0 mls/hr 10/13/25 06:17 10/13/25 08:35 Heparin 96243 Unit/500 Ml D5w IV 11/12/25 06:16 0 units/hr .Q0M MARCIE 0 mls/hr Titration Protocol 0 UNITS/HR Losartan Potassium 100 mg 10/13/25 09:00 10/13/25 08:41 Losartan Potassium 50 Mg Tab PO 11/12/25 08:59 100 mg DAILY MARCIE Administration Vitamin D 50 mcg 10/13/25 09:00 10/13/25 08:41 Cholecalciferol 25 Mcg (1000 Units) Tab PO 11/12/25 08:59 50 mcg DAILY MARCIE Administration Past Medical History Medical History Dyslipidemia Hypertension 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 osteoporosis hereditary spherocytosis Hx/o splenectomy Hx/o PE RUE weakness RLE weakness Acute LLL PE Exercise / Class Metabolic Activity III < 4 Walking/Shop/Light housework Past Anesthesia History No Hx of Anesthesia Complications and No Family Hx of Anesthesia Complications History of PONV No Hx of PONV and No Hx of Motion Sickness Social History Smoking Status: Former smoker Do You Dip or Chew Tobacco: No Hx Alcohol Use: Yes Alcohol type: wine alcohol intake frequency: holidays/special occasions only Hx Substance Use: No Physical Exam Vital Signs Last Vital Signs Temp 36.8 C 10/13/25 02:01 Pulse 94 H 10/13/25 07:21 Resp 17 10/13/25 07:21 BP 147/96 H 10/13/25 07:19 Pulse Ox 94 10/13/25 07:21 O2 Del Method Nasal Cannula 10/13/25 06:30 O2 Flow Rate 3 10/13/25 05:39 Testing Laboratory Results 10/13/25 02:23 10/13/25 02:23 PT 11.9 Seconds (9.0-12.0) 10/13/25 02:23 INR 1.1 (0.9-1.1) 10/13/25 02:23 APTT 27 Seconds (21-31) 10/13/25 02:23 10/13/25 02:34 POC Glucose 117 H Electrocardiogram Date: 10/13/25 Findings: + ST @ (@ 101;NS T wave changes) Chest X-Ray Date: 10/13/25 Findings: + pleural effusion (mild right pleural effusion;) basal subsegmental collapse RLL;ill - defined ground glass opacities right mid lower lung zone;appears to be congestive changes Echocardiogram Date: 10/13/25 EF: 55% LV Function: normal RWMA: + none Other Findings: + diastolic dysfunction (grade 1) TR- mild moderate size pericardial effusion
--- NOTE | 2025-10-13 09:50 | Neurology Consultation ---
Date of Consultation October 13, 2025 Assessment & Plan (1) RUE weakness: (2) Pulmonary emboli: Plan -Recommend MRI brain with and without contrast - recommend treatment of pulmonary emboli with heparin drip no bolus - blood pressure recommendations SBP < 180 while on heparin drip - DVT prophylaxis with SCDs only -neuro checks every 4 hours while inpatient -please call Neurology with any change in neurologic condition -please call me after brain MRI with and without contrast has been read and I will review it with the patient and her family I discussed my recommendations with Dr. Zehra Singleton and Dr. Jacque Andrew (Pulmonology). Thank you for this consult. Please call with questions. Telehealth Consultation Telehealth Information Telehealth Information: I performed this visit using a real-time telehealth connection between my location and the patients originating location ([facility]). After connecting through interactive tele-video, patient was identified by name and date of and/or wristband check.Patient (or authorized healthcare customer support representative) was informed that this was a telemedicine visit and it was being conducted confidentially over secure lines. My office door was closed and no one else was present in the room with me.Patient (or authorized healthcare customer support representative) provided consent to proceed with the visit, expressed an understanding of privacy and security of the telemedicine visit, and gave permission to have a hospital customer support representative in the room in order to assist with the visit and to conduct portions of the visit, as needed. I informed the patient (or authorized healthcare customer support representative) that I reviewed their record and presented the opportunity for them to ask any questions regarding the visit today. The patient agreed to participate. History of Present Illness Reason for Consultation: Abnormal CTH. Attending Physician: Zehra Singleton MD History of Present Illness Agatha Lane is a 75-year-old right-handed female with a past medical history of hypertension and hyperlipidemia who presents to the [facility] Emergency Department on 10/13/2025 following an episode of right hand numbness and weaknes s which started on 10/12/2025. In the Emergency Department, a CT head was obtained which per report shows a left frontoparietal hypodensity concerning for vasogenic edema/metastatic lesion. I personally reviewed the patient's CT head and I do not see an obvious lesion. CT angiogram head and neck did not show any stenoses or large vessel occlusion, however there was suggestion of a right sided lung mass, enhancing lymph nodes, and thyroid nodules. CTA chest was then obtained and revealed a right-sided lung mass and left pulmonary embolism. I was asked to consult regarding the reported abnormal CT head and consideration for heparin drip with the pulmonary embolism. I personally reviewed the patient's CT head and I do not see an obvious lesion. I advised the primary and Pulmonology teams that heparin drip with no bolus would be low risk from a Neurology standpoint. Recommend MRI brain with and without contrast to further elucidate this reported brain lesion. I saw and examined the patient at bedside. The patient's son, daughter, and are present for the encounter. Per her report, she presented to the Emergency Department for right hand weakness and numbness which started 10/12/2025. CT head was personally reviewed and in my opinion unremarkable. Patient is not a candidate for IV thrombolytics given presentation outside of time window. Patient is not a candidate for mechanical thrombectomy given no large vessel occlusion on CT angiogram head and neck. She does not have a known cancer history. She denies associated symptoms of vision changes, speech changes, dizziness, lightheadedness, or headache. These symptoms have never happened to her before. She is a former smoker but quit approximately 60 years ago. She denies any drugs or alcohol use. Her father has a history of cancer which she believes was in the stomach or bladder. Her exam is notable for right upper extremity drift, bilateral lower extremity drift, and right upper extremity numbness. At baseline, the patient is independent with eating, bathing, walking, driving, and finances. Her modified Dare scale score at baseline is 0. Allergies Allergy/AdvReac Type Severity Reaction Status Date / Time No Known Allergies Allergy Unverified 08/14/25 11:48 Home Medications Medication Instructions Recorded Confirmed Type aspirin 81 mg tablet,delayed 81 mg PO DAILY 10/13/25 10/13/25 History release atorvastatin 40 mg tablet 40 mg PO DAILY 10/13/25 10/13/25 History cholecalciferol (vitamin D3) 50 50 mcg PO DAILY 10/13/25 10/13/25 History mcg (2,000 unit) capsule (Vitamin D3) hydroxyzine HCl 25 mg tablet 25 mg PO Q6H PRN Itching 10/13/25 10/13/25 History losartan 100 mg tablet 100 mg PO DAILY 10/13/25 10/13/25 History Patient History Medical History Dyslipidemia Hypertension Social History Smoking Status: Former smoker Second Hand Exposure: No; Do You Dip or Chew Tobacco: No; Hx Alcohol Use: Yes Alcohol type: wine Hx Substance Use: No Preferred Language: Mongolian Communication Ability: Effective Assistant Cook Required: No Beliefs That Will Affect Care: None Current Living Situation: Spouse Feels Safe at Home: Yes Assistive Devices: None Review of Systems ROS reviewed and negative except as above. Physical Exam [employer] Stroke Scale: 1A. LOC: 0 1B. Question: 0 1C. Commands: 0 2. Gaze: 0 3. Visual Bernardo: 0 4. Facial Palsy: 0 5A. Arm Left: 0 5B. Arm Right: 1 6A. Leg Left: 1 6B. Leg Right: 1 7. Ataxia: 0 8. Sensory: 1 9. Aphasia: 0 10. Dysarthria: 0 11. Extinction: 0 Total: 4 Baseline Modified Dare Scale Score: 0 - No symptoms. Results & Data Vital Signs (Past 12 Hours) Vital Signs Temp Pulse Resp BP Pulse Ox O2 Del Method O2 Flow Rate 10/13/25 07:21 94 H 17 94 10/13/25 07:19 147/96 H 10/13/25 07:19 147/96 H 10/13/25 07:18 97 H 23 10/13/25 07:12 91 H 34 H 10/13/25 07:09 94 H 10/13/25 07:00 100 H 21 10/13/25 06:51 106 H 18 10/13/25 06:42 92 H 22 10/13/25 06:36 97 H 21 10/13/25 06:35 156/87 H 10/13/25 06:35 156/87 H 10/13/25 06:35 156/87 H 10/13/25 06:35 156/87 H 10/13/25 06:35 156/87 H 10/13/25 06:33 91 H 21 10/13/25 06:30 88 22 93 Nasal Cannula 10/13/25 06:25 Nasal Cannula 10/13/25 06:21 97 H 25 H 10/13/25 06:12 95 H 21 10/13/25 06:06 97 H 24 174/89 H 10/13/25 06:05 97 H 10/13/25 05:50 102 H 24 96 10/13/25 05:41 92 H 22 93 10/13/25 05:39 Nasal Cannula 3 10/13/25 05:32 99 H 22 94 10/13/25 05:20 95 H 22 96 10/13/25 05:11 101 H 20 10/13/25 05:00 101 H 27 H 96 10/13/25 04:54 102 H 18 214/110 H 95 3 10/13/25 03:08 97 H 18 174/133 H 93 Nasal Cannula 3 10/13/25 03:07 87 L Room Air 10/13/25 02:17 102 H 10/13/25 02:01 36.8 C 109 H 18 183/123 H 92 Laboratory Results 10/13/25 10/13/25 10/13/25 04:05 02:34 02:23 WBC 16.35 H RBC 5.60 H Hgb 16.3 H Hct 46.0 MCV 82.1 MCH 29.1 MCHC 35.4 RDW Std Deviation 40.0 RDW Coeff of Nathaniel 13.6 Plt Count 273 MPV 9.3 L Immature Gran % (Auto) 0.4 Neut % (Auto) 73.4 Lymph % (Auto) 12.4 Twiggs % (Auto) 11.0 Eos % (Auto) 2.3 Baso % (Auto) 0.5 Neut # (Auto) 12.01 H Lymph # (Auto) 2.02 Twiggs # (Auto) 1.80 H Eos # (Auto) 0.38 Baso # (Auto) 0.08 Immature Gran # (Auto) 0.06 PT 11.9 INR 1.1 APTT 27 PTT Ratio 1.0 Sodium 141 Potassium 3.7 Chloride 108 H Carbon Dioxide 23 Anion Gap 10 BUN 13 Creatinine 0.74 Est Cr Clr Drug Dosing 60.0 eGFR 84.85 BUN/Creatinine Ratio 17.6 Glucose 126 H POC Glucose 117 H Calcium 8.9 Magnesium 1.8 Total Bilirubin 1.0 AST 19 ALT 12 Alkaline Phosphatase 106 H Troponin I High Sens 290.7 H* 283.3 H* Total Protein 6.9 Albumin 3.8 Globulin 3.1 Albumin/Globulin Ratio 1.[address] 10/13/25 02:23 IMPRESSION: 1. Focal low attenuation area in the subcortical aspect of left fronto-parietal region, slightly extending in the adjacent mae radiata. Possibility of vasogenic edema due to underlying metastatic lesion could not be excluded considering right upper lung mass lesion and metastatic mediastinal nodes in the CT neck angiography images. Other possible differential could be chronic ischemic changes. Recommended dedicated MR contrast enhancing examination for further evaluation 2. Chronic microvascular ischemic changes and senile cortical atrophy. [facility] called at [phone] at 03:08 AM EST, 10/13/2025, and BINA Blanco was informed regarding the presence of significant medical findings in the stroke report. Electronically signed by Mj Meade 10-13-2025 03:12 AM Head CTA 10/13/25 02:23 IMPRESSION: 1. No critical stenosis in CT angiography of the head. 2. Mild atherosclerotic changes in intracranial portions of bilateral internal carotid arteries. [facility] ER was called at [phone] at 03:08 AM EST, 10/13/2025, and BINA Blanco was informed regarding the negative stroke findings in the report. Electronically signed by Mj Meade 10-13-2025 03:12 AM Neck CTA 10/13/25 02:23 IMPRESSION: 1. No critical stenosis in CT angiography of neck. 2. Neoplastic heterogeneously enhancing spiculated mass lesion in the medial aspect of right lower lobe in parahilar location, measuring 4 x 3.2 cm in axial plane with adjacent haziness and interstitial thickening in the visualized right upper lobe, possibility of lymphangitic carcinomatosis. Recommended dedicated CT chest examination with further workup. 3. Moderate right sided pleural effusion noted with nodular thickening of the major fissure. 4. Multiple necrotic and heterogeneously enhancing right supraclavicular and mediastinal nodes noted, largest measuring 20 x 15 mm. 5. Hypodense nodules in both lobes of thyroid gland, largest measuring 12 mm. Recommended ultrasound evaluation 6. Calcified plaques at bilateral carotid bulbs and osteoproximal segments of internal carotid arteries, causing nearly 10%-20% luminal narrowing on the right side and minimal 5%-10% luminal narrowing on the left side. [facility] at [phone] at 03:15 AM EST, 10/13/2025, and KALI Glass was informed regarding the presence of significant medical findings in the stroke report. Electronically signed by Mj Meade 10-13-2025 03:17 AM Chest CTA 10/13/25 03:04 IMPRESSION: 1. Approximately 61 x 39 x 42 mm sized heterogeneously enhancing mass like consolidation is noted involving right upper lobe, extending up to the right hilum. - likely neoplastic etiology - histopathological evaluation suggested. 2. Evidence of intraluminal hypodense filling defect is noted involving left lower lobar artery and its proximal segmental branches - suggestive of embolism. 3. Diffuse smooth interlobular septal thickening with superimposed ground-glass opacities are noted involving bilateral lungs - suggestive of pulmonary congestion 4. Mild dilatation of pulmonary trunk ,bilateral main pulmonary artery up to subsegmental level with mild tortuosity - suggest possibility of pulmonary arterial hypertension. 5. Mild cardiomegaly with moderate pericardial effusion.Moderate right pleural effusion with basal subsegmental collapse of right lower lobes are seen. 6. Multiple enlarged prevascular, pre and paratracheal, right perihilar and subcarinal lymph nodes are seen - largest measures 33 mm Electronically signed by Salvador Rodríguez 10-13-2025 04:04 AM Medications Administered Home Medications Medication Instructions Recorded Confirmed Last Taken aspirin 81 mg tablet,delayed 81 mg PO DAILY 10/13/25 10/13/25 Unknown release atorvastatin 40 mg tablet 40 mg PO DAILY 10/13/25 10/13/25 Unknown cholecalciferol (vitamin D3) 50 50 mcg PO DAILY 10/13/25 10/13/25 Unknown mcg (2,000 unit) capsule (Vitamin D3) hydroxyzine HCl 25 mg tablet 25 mg PO Q6H PRN Itching 10/13/25 10/13/25 Unknown losartan 100 mg tablet 100 mg PO DAILY 10/13/25 10/13/25 Unknown Active Medications Generic Name Dose Route Start Last Admin Trade Name Freq PRN Reason Stop Dose Admin Atorvastatin Calcium 40 mg 10/13/25 09:00 10/13/25 08:41 Atorvastatin 40 Mg Tab PO 11/12/25 08:59 40 mg DAILY MARCIE Administration Sodium Chloride 1,000 mls @ 80 mls/hr 10/13/25 06:17 10/13/25 06:32 Nss IV 10/16/25 06:16 80 mls/hr .[id number] MARCIE Administration Heparin Sodium/Dextrose 25,000 units in 500 mls @ 0 mls/hr 10/13/25 06:17 10/13/25 08:35 Heparin 53273 Unit/500 Ml D5w IV 11/12/25 06:16 0 units/hr .Q0M MARCIE 0 mls/hr Titration Protocol 0 UNITS/HR Losartan Potassium 100 mg 10/13/25 09:00 10/13/25 08:41 Losartan Potassium 50 Mg Tab PO 11/12/25 08:59 100 mg DAILY MARCIE Administration Vitamin D 50 mcg 10/13/25 09:00 10/13/25 08:41 Cholecalciferol 25 Mcg (1000 Units) Tab PO 11/12/25 08:59 50 mcg DAILY MARCIE Administration
[2025-10-13] MEDS: GADOBUTROL 65ML VIAL IV ONE (10:05)
[2025-10-13] MEDS ORDERED: SUCCINYLCHOLINE CHLORIDE 20 MG/ML 10 ML VIAL IV ONE (10:12)
--- NOTE | 2025-10-13 10:37 | Magnetic Resonance Report ---
MRI OF THE BRAIN COMBO CLINICAL HISTORY: Strokelike symptoms. COMPARISON STUDY: CT of the brain dated 10/13/2025. TECHNIQUE: MRI of the brain was performed utilizing various T1 and T2-weighted sequences in the axial , sagittal, and coronal planes. Contrast-enhanced sequences were acquired following the administratio n of 6 cc of Gadavist. FINDINGS: Brain parenchyma: There are numerous (greater than 10) small foci of restricted diffusion seen in bot h cerebellar hemispheres, as well as within the bilateral frontal, parietal, and occipital lobes. The se are consistent with foci of acute subacute ischemia and measure up to 1.1 cm in size. There is no evidence of hemorrhage or mass effect. There is age-related involutional change noting mild to modera te subcortical and periventricular microangiopathic disease. There is a 3 mm ovoid focus of cortical enhancement in the left occipital lobe seen on axial image #111 of the high resolution axial postcont rast images. No additional foci of abnormal enhancement are seen following contrast administration. N o extra-axial fluid collection is seen. The cerebellar tonsils are normal in configuration. Ventricles, sulci, and cisterns: Normal in configuration. Pituitary and sella: Partially empty sella is incidentally noted. Intracranial vasculature: Normal flow voids are maintained at the skull base. Orbits: The bony orbits are grossly intact. Orbital contents are normal in appearance. Sinuses and mastoids: Mild mucosal thickening seen within the maxillary, ethmoid, and sphenoid sinuse s. The mastoid air cells are clear. Calvarium: Unremarkable. Cervical cord: Partially visualized cervical spinal cord is normal in morphology and signal intensity . IMPRESSION: 1. There are numerous small foci of restricted diffusion scattered throughout both cerebral and cereb ellar hemispheres consistent with acute to subacute infarcts. The appearance/location favors an embol ic event. 2. There is no evidence of hemorrhage or mass effect. 3. A 3 mm cortical based focus of enhancement in the left occipital cortex is indeterminant and there is a very prominent vascular structure. This is of doubtful significance in the absence of a cancer history. A precautionary six-month follow-up MRI is recommended for reassessment. 4. No additional enhancing lesion is identified following contrast administration. ACT 112: Negative or not required by law. Electronically signed by: Zach Pruett M.D. 10/13/2025 10:35 AM
--- NOTE | 2025-10-13 10:55 | Pulmonary Consultation ---
Date of Consultation October 13, 2025 Assessment & Plan (1) Brain mass: (2) Lung mass: (3) Pleural effusion: (4) Pulmonary emboli: (5) CVA (cerebral vascular accident): Plan Patient is a 75-year-old female who presented to the hospitalization for evaluation of right hand numbness and weakness. She had been experiencing the symptoms for approximately 2 weeks. Also had increasing shortness of breath for [address] of the head on admission was concerning for a left frontoparietal mass with vasogenic edema. The patient also underwent CT imaging of the chest which showed a large right upper lobe/hilar mass with extensive adenopathy and right pleural effusion. Left lower lobe subsegmental PE also identified. Heparin drip was initiated. Neurology and pulmonary were consulted. The patient was taken for MRI of the brain, this shows multiple areas of subacute infarcts concerning for embolic event. A 3 mm focus within the left occipital cortex also appreciated. 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 I do not think this can be delayed and needs to be done emergently today. Neurology has seen the patient, they have agreed that she can undergo anesthesia given the need for diagnosis. The patient was started on a heparin drip, this is held for now, can resume it without a bolus after bronchoscopy is complete. The patient is not on any antiplatelets except for aspirin. We will plan for bronchoscopy and EBUS for tissue sampling. Will also do a thoracentesis. CT abdomen pelvis is pending. Recommend oncology consultation. Thank you for this consult. Pulmonary will continue to follow along with you. Other management per primary team and consultants. History of Present Illness Reason for Consultation: Lung mass, pulmonary embolism, brain lesion Requesting Physician: Dr. Olsne Attending Physician: Zehra Singleton MD History of Present Illness Patient is a 75-year-old female with a past medical history that is significant for hypertension and hyperlipidemia. She presented to the emergency department for evaluation of right hand numbness and weakness that have been present for approximately 2 weeks. Had acutely worsened on 10/12/2025. On arrival CT imaging showed a left frontoparietal hypodensity concerning for vasogenic edema and metastatic lesion. CT of the chest was performed due to complaints of dyspnea that have been present for approximately 2 weeks. CTA showed left lower lobe subsegmental PE. A 6.1 x 3.9 x 4.2 cm mass like consolidation involving the right upper lobe extending to the right hilum. Diffuse smooth interlobular septal thickening with GGO's. Mild dilation of the pulmonary trunk. Mild cardiomegaly and multiple enlarged lymph nodes. Moderate right pleural effusion was also appreciated. The patient was admitted to the hospital service. She was started on heparin drip. Neurology was consulted as well as pulmonary. When examined the patient this morning she is resting comfortably in bed. Multiple family members are at bedside. Patient is aware of her CT findings. She states that she has had about 2 weeks of symptoms including her right hand symptoms as well as some shortness of breath. She says overall however she has felt more short of breath for the past 1 year. She does not smoke cigarettes, she said about 60 years ago she smoked a little bit but was never a heavy smoker. Was never exposed to hazardous material that she is aware of in her work. Her father had bladder cancer, no other significant family history for cancer. She denies fevers, chills, night sweats or weight loss recently. Does not having hemoptysis. I personally reviewed her CT imaging. There is a large mass/consolidation involving the right upper lobe, this extends to the right hilum. There is some extrinsic compression as the tumor seems to be encasing the right mainstem bronchus with narrowing of the right mainstem. Multiple lymph nodes are enlarged. There is also a moderate size pleural effusion on the right. I discussed the CT findings and options for bronchoscopy with EBUS and tissue sampling as well as thoracentesis on the right. Patient is agreeable for procedure. Allergies Allergy/AdvReac Type Severity Reaction Status Date / Time No Known Allergies Allergy Unverified 08/14/25 11:48 Home Medications Medication Instructions Recorded Confirmed Type aspirin 81 mg tablet,delayed 81 mg PO DAILY 10/13/25 10/13/25 History release atorvastatin 40 mg tablet 40 mg PO DAILY 10/13/25 10/13/25 History cholecalciferol (vitamin D3) 50 50 mcg PO DAILY 10/13/25 10/13/25 History mcg (2,000 unit) capsule (Vitamin D3) hydroxyzine HCl 25 mg tablet 25 mg PO Q6H PRN Itching 10/13/25 10/13/25 History losartan 100 mg tablet 100 mg PO DAILY 10/13/25 10/13/25 History Patient History Medical History Dyslipidemia Hypertension Social History Smoking Status: Former smoker Second Hand Exposure: No; Do You Dip or Chew Tobacco: No; Hx Alcohol Use: Yes Alcohol type: wine Hx Substance Use: No Preferred Language: Estonian Communication Ability: Effective 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 Negative except as noted in HPI. Physical Exam Physical Exam: Physical examination: General: Well-appearing, appears stated age, nondistressed. HEENT: Normocephalic, atraumatic. Extraocular movements intact. Sclera are nonicteric. No JVD appreciated. Skin: Warm and dry. No rashes appreciated. No jaundice appreciated. Cardiovascular: Heart is a regular rate and rhythm, no murmurs appreciated on my exam. No significant lower extremity edema. Lungs: On nasal cannula. Diminished on the right. No wheezing. Abdomen: Nondistended, nontender. Musculoskeletal: Normal muscle mass and tone. No gross joint deformity abno rmalities. No effusions appreciated. Neurologic: Awake and alert, oriented. CN II through XII are grossly intact. Right hand numbness and weakness. No other focal neurologic deficits. Psychiatric: Appropriate cooperative during my exam. Results & Data Results & Data Vital Signs (Past 12 Hours) Vital Signs Temp Pulse Resp BP Pulse Ox O2 Del Method O2 Flow Rate 10/13/25 07:21 94 H 17 94 10/13/25 07:19 147/96 H 10/13/25 07:19 147/96 H 10/13/25 07:18 97 H 23 10/13/25 07:12 91 H 34 H 10/13/25 07:09 94 H 10/13/25 07:00 100 H 21 10/13/25 06:51 106 H 18 10/13/25 06:42 92 H 22 10/13/25 06:36 97 H 21 10/13/25 06:35 156/87 H 10/13/25 06:35 156/87 H 10/13/25 06:35 156/87 H 10/13/25 06:35 156/87 H 10/13/25 06:35 156/87 H 10/13/25 06:33 91 H 21 10/13/25 06:30 88 22 93 Nasal Cannula 10/13/25 06:25 Nasal Cannula 10/13/25 06:21 97 H 25 H 10/13/25 06:12 95 H 21 10/13/25 06:06 97 H 24 174/89 H 10/13/25 06:05 97 H 10/13/25 05:50 102 H 24 96 10/13/25 05:41 92 H 22 93 10/13/25 05:39 Nasal Cannula 3 10/13/25 05:32 99 H 22 94 10/13/25 05:20 95 H 22 96 10/13/25 05:11 101 H 20 10/13/25 05:00 101 H 27 H 96 10/13/25 04:54 102 H 18 214/110 H 95 3 10/13/25 03:08 97 H 18 174/133 H 93 Nasal Cannula 3 10/13/25 03:07 87 L Room Air 10/13/25 02:17 102 H 10/13/25 02:01 36.8 C 109 H 18 183/123 H 92 PG Care Time/CCT Total # of Minutes Spent Total Time Spent with Patient: Total time spent is greater than 50% in coordination of care (as documented) at patient's floor/unit and/or counseling patient: [place] [address] IN/OBS CONSULT LVL 5,80M Patient Type New History Comprehensive Exam Comprehensive Medical Decision Making High Complexity Diagnoses Brain mass G93.89 Lung mass R91.8 Pleural effusion J90 Pulmonary emboli I26.99 CVA (cerebral vascular accident) I63.9
--- NOTE | 2025-10-13 10:56 | Electrocardiogram Report ---
Test Reason : Blood Pressure : */* mmHG Vent. Rate : 101 BPM Atrial Rate : 101 BPM P-R Int : 138 ms QRS Dur : 74 ms QT Int : 340 ms P-R-T Axes : 45 60 101 degrees QTcB Int : 440 ms Sinus tachycardia Nonspecific T wave abnormality Abnormal ECG When compared with ECG of 08-Dec-2024 23:59, T wave inversion now evident in Anterior leads Confirmed by Mele Matthews ([id number]) on 10/13/2025 10:55:59 AM Referred By: REFERRED SELF Confirmed By: Mele Matthews
[2025-10-13] MEDS: OPTIRAY 320 100ml IV ONE (11:19)
--- NOTE | 2025-10-13 11:19 | Communication Note ---
Date of Service: October 13, 2025 MRI Brain with and without contrast was personally reviewed and I find mild multifocal infarcts in the bilateral high parietal and right occipital ter ritories. This has a cardioembolic appearance. Patient is already on heparin drip with no bolus. No evidence of abnormal enhancement in the brain per my review. TTE pending. Patient does not need HELEN as she will already be on anticoagulation for pulmonary emboli and personally assumed cardioembolic infarct. She is set to undergo bronchoscopy with anesthesia today. I discussed the results of the MRI with the patient and her family. They are aware that risk of recurrent stroke will never be 0 and risk is highest within 6 months. We discussed risk of recurrent stroke following a bronchoscopy, however since this is an urgent procedure and new diagnoses of presumed cancer, benefit of undergoing the procedure is felt to outweigh the risk at this time. The patient and her family expressed understanding that there is a risk of recurrent stroke in the procedure. All questions and concerns were answered. Discussed with Dr. Zehra Singleton and Dr. Jacque Andrew. I will follow up with the patient tomorrow.
--- NOTE | 2025-10-13 12:44 | Hospitalist Progress Note ---
Date of Service October 13, 2025 Assessment & Plan (1) Stroke-like symptom: Plan: 75 yo F w/ PMH of HTN, HLD, osteoporosis, hereditary spherocytosis s/p splenectomy presents with strokelike symptoms. Pt c/o 1 d of N/T/Weakness of right sided extremities. Pt denies fever, cough, chest pain, headache, vision changes. Strokelike symptom Presents with right extremity weakness/numbness/tingling CTA head and neck with no hemodynamically significant stenosis CT head concerning for left frontoparietal vasogenic edema, metastatic/send versus ischemic changes. MRI brain with numerous small foci of acute to subacute infarcts throughout both cerebral and cerebellar hemispheres, suggestive of embolic event. No evidence of hemorrhage or mass effect. 3 mm cortical based foci of enhancement noted in the left occipital cortex and 6-month follow-up MRI is recommended. Patient with continued right extremity weakness/numbness/tingling. Discussed with neurology, continue with heparin drip Continue with neurochecks, follow-up with neurology upon discharge. Close monitoring and stat CT head / inform neuro for any changes in patient condition SP/PT/OT eval Lung mass Pleural effusion Pulmonary embolism Incidental finding of lung lesion in right upper lobe in CTA neck and right- sided pleural effusion. Patient denies any sore throat/cough/chest pain or shortness of breath at pre sentation. CTA chest: Approximately 61 times*9 x 42 mm sized lesion noted RUL, extending up to right hilum. Concern for left lower lobe pulmonary embolism. b/l Pulmonary congestion noted. Moderate right pleural effusion noted. Multiple enlarged lymph nodes noted. Pulmonology on board, plan for right-sided thoracentesis. Will possibly hold on plan for bronchoscopy. Continue with heparin drip Follow-up on pleural fluid studies. CTAP ordered to look for any mets dz. Other chronic medical conditions: Continue with/resume home meds as and when able. Hypertensionfairly under control, continue home losartan. IV labetalol as needed to keep SBP less than 180. Hyperlipidemia: Continue home statin, will get fasting lipid profile in AM. Will get A1c in AM. History of hereditary spherocytosis: S/p splenectomy DVT prophylaxis: Patient on low-dose heparin drip. Disposition: Continue with telemetry Full code Admission and Anticipated Discharge Date Admission Date: October 13, 2025 Subjective Patient was seen and examined at bedside. Patient's daughter and son and LEIA who were present at bedside. Patient reports weakness and numbness and tingling of her right extremities. Patient denies any fever/sore throat/cough/chest pain/belly pain/nausea/vomiting/diarrhea/pain or burning while passing urine/headache/vision changes/dizziness. Physical Exam Physical Exam: General- Not in acute distress. Head- atraumatic Eyes- PERRL, EOMI. ENT- oropharynx clear Neck- supple, no JVD. Lungs- clear to auscultation no wheezing or crackles Heart- regular rhythm; no murmur, no gallop. Abdomen- normal bowel sounds, soft, nontender, no distension Extremities- no pretibial edema, no erythema seen Neuro- alert, oriented PERRL, EOMI; no facial palsy; no dysarthria; 5/5 Lt extremities, 4/5 Rt extremities. Right upper extremity pronator drift present, sensations intact, position sense intact. Skin- warm & dry Results & Data Results & Data Vital Signs (Past 12 Hours) Vital Signs Temp Pulse Resp BP Pulse Ox O2 Del Method O2 Flow Rate 10/13/25 10:45 95 10/13/25 10:44 135/93 10/13/25 09:18 103 H 21 93 10/13/25 09:12 106 H 16 94 10/13/25 09:00 159/107 H 10/13/25 09:00 159/107 H 10/13/25 09:00 159/107 H 10/13/25 09:00 159/107 H 10/13/25 09:00 159/107 H 10/13/25 09:00 107 H 21 95 10/13/25 08:51 104 H 20 95 10/13/25 08:42 105 H 21 94 10/13/25 08:42 183/100 H 10/13/25 08:42 183/100 H 10/13/25 08:42 183/100 H 10/13/25 08:42 183/100 H 10/13/25 08:42 183/100 H 10/13/25 08:33 113 H 14 93 10/13/25 08:21 111 H 18 10/13/25 08:12 106 H 26 H 95 10/13/25 08:00 103 H 19 95 10/13/25 07:51 97 H 25 H 96 10/13/25 07:42 91 H 21 95 10/13/25 07:30 88 25 H 94 10/13/25 07:21 94 H 17 94 10/13/25 07:19 147/96 H 10/13/25 07:19 147/96 H 10/13/25 07:18 97 H 23 10/13/25 07:12 91 H 34 H 10/13/25 07:09 94 H 10/13/25 07:00 100 H 21 10/13/25 06:51 106 H 18 10/13/25 06:42 92 H 22 10/13/25 06:36 97 H 21 10/13/25 06:35 156/87 H 10/13/25 06:35 156/87 H 10/13/25 06:35 156/87 H 10/13/25 06:35 156/87 H 10/13/25 06:35 156/87 H 10/13/25 06:33 91 H 21 10/13/25 06:30 88 22 93 Nasal Cannula 10/13/25 06:25 Nasal Cannula 10/13/25 06:21 97 H 25 H 10/13/25 06:12 95 H 21 10/13/25 06:06 97 H 24 174/89 H 10/13/25 06:05 97 H 10/13/25 05:50 102 H 24 96 10/13/25 05:41 92 H 22 93 10/13/25 05:39 Nasal Cannula 3 10/13/25 05:32 99 H 22 94 10/13/25 05:20 95 H 22 96 10/13/25 05:11 101 H 20 10/13/25 05:00 101 H 27 H 96 10/13/25 04:54 102 H 18 214/110 H 95 3 10/13/25 03:08 97 H 18 174/133 H 93 Nasal Cannula 3 10/13/25 03:07 87 L Room Air 10/13/25 02:17 102 H 10/13/25 02:01 36.8 C 109 H 18 183/123 H 92
[2025-10-13 12:50] LABS: Albumin Level 3.0 gm/dl (3.4-5.0); Bilirubin,Total 0.9 mg/dl (0.2-1.0); Total Protein 5.6 gm/dl (6.0-8.3)
--- NOTE | 2025-10-13 13:03 | Procedure Note ---
Procedure Note Date of Service October 13, 2025 Procedure: Diagnostic therapeutic ultrasound-guided catheter thoracentesis Package Clerk: Dr. Jacque Andrew Indication: Pleural effusion Consent: Signed by patient and verified with timeout prior to procedure Anesthesia: 1% lidocaine without epinephrine local. Procedure: Consent was verified and timeout performed. Appropriate imaging studies were reviewed prior to the procedure. Patient was placed in a seated position and limited thoracic ultrasound was performed of the right chest. Appropriate site above the diaphragm for thoracentesis was selected. The skin was prepped and draped in normal sterile fashion. Lidocaine was used for local analgesia. Fluid was aspirated via the finder needle. A small skin nicole was made with the scalpel and the catheter over the needle apparatus was advanced over the rib into the pleural space. Using the syringe one-way valve system, a total of 900 mL's of hazy yellowish- pink fluid was removed. Procedure was terminated due to no more fluid to drain. The catheter was removed and observed to be intact. A sterile dressing was applied. Post procedure chest x-ray was ordered. Fluid was sent for labs, culture and cytology. Complications: None Blood loss: Minimal [facility] Procedure Codes (Charges) Pulmonary/Thoracic Procedure 1: Pulmonary and Thoracic: 88369 Thoracentesis w/o imaging Coding CPT Codes Pulmonary/Thoracic - Pulmonary and Thoracic: 71507 Thoracentesis w/o imaging ([id number]) Additional Codes Date of Service ([facility].SURGERY)
[2025-10-13 13:05] LABS: ANTI-Xa, UFH(UnfractionatedHep < 0.10 IU/ml (0.3-0.7)
--- NOTE | 2025-10-13 13:41 | XRay Report ---
EXAM: Radiograph of the Chest 1 View INDICATION: Thoracentesis was completed ED 816 TECHNIQUE: Frontal view of the chest. COMPARISON: CT chest earlier the same day FINDINGS: Lungs and pleural spaces: Decreased right pleural effusion. No pneumothorax. Improved aeration of the right lung. Stable congestive vasculature and interstitial scarring. Heart: Stable shape and configuration within normal limits allowing for technique. Mediastinum: Normal contour. Bones/joints: No fracture, erosion or dislocation. Soft tissues: No abnormality noted. No radiopaque foreign body noted. Upper abdomen: No abnormality noted. IMPRESSION: 1. Decreased right pleural effusion. No pneumothorax. 2. Improved aeration of the right lung. ACT 112: N/A Electronically signed by Sulema Doty 10-13-2025 13:31 PM
[2025-10-13 14:00] LABS: Appearance Pleural Fluid Hazy; Color Pleural Fluid Straw; RBC Pleural Fluid Auto 7000 /uL; Source Pleural Fluid Right Lung; WBC Pleural Fluid Auto 1477 /uL
[2025-10-13] MEDS: LIDOCAINE 2% LOCAL 50 ML VIAL INSTIL ONE (14:06)
[2025-10-13] MEDS: TRANEXAMIC ACID 100 MG/ML 10 ML VIAL INSTIL ONE (14:06)
--- NOTE | 2025-10-13 14:53 | CT Scan Report ---
CT SCAN OF THE ABDOMEN AND PELVIS WITH IV CONTRAST CLINICAL HISTORY: Metastatic survey. COMPARISON STUDY: Chest CT dated 10/13/2025. TECHNIQUE: Following the IV administration of 93 cc of Optiray 320, CT scan of the abdomen and pelvi s is performed from the lung bases to the proximal femora. Images are reviewed in the axial, sagittal , and coronal planes. IV contrast was administered without complication. Oral contrast was utilized. A dose lowering technique was utilized adhering to the principles of ALARA. CT DOSE: 799.59 mGy.cm FINDINGS: Lung bases: The heart is normal in size noting a moderate pericardial effusion. There is a moderate r ight pleural effusion with consolidation of the right lower lung. Scarring/atelectasis is seen at the left lung base. Liver: The contrast-enhanced liver is normal in size, contour, and attenuation. There is minimal cent ral intrahepatic biliary ductal dilatation. The hepatic veins and portal veins are patent. There is a subcentimeter left lobe hepatic cyst. Gallbladder: Surgically absent noting clips in the gallbladder fossa. Spleen: A normal spleen is not identified and this is presumed surgically absent. Large splenules are seen in the left upper quadrant below the diaphragm measuring up to 3.7 cm. Pancreas: Moderately atrophic and grossly unremarkable. Adrenal glands: Unremarkable. Kidneys: The contrast enhanced kidneys are normal in size and without hydronephrosis. The kidneys enh ance symmetrically. Bilateral cortical and renal sinus cysts measure up to 1.6 cm. Additional subcent imeter cortical hypodensities also likely represent cysts but are too small for definitive characteri zation. No enhancing cortical lesion is seen. There is no evidence of urothelial lesion in the renal pelvis bilaterally or along the course of the ureters. Abdominal vasculature: The abdominal aorta is normal in course and caliber noting advanced atheroscle rotic calcification. Bowel: There is moderate diverticulosis of left colon without CT evidence of acute diverticulitis. No bowel obstruction is seen. Enteric contrast reaches the left colon. The appendix is well-visualized and normal. Peritoneum: There is no intraperitoneal free air or abdominal ascites. There is a small fat-containin g umbilical hernia. Lymphadenopathy: There are numerous mildly enlarged retroperitoneal lymph nodes. An aortocaval node o n image #107 measures 2.1 x 1.2 cm. There are also prominent subcentimeter gastrohepatic nodes. There is no mesenteric, iliac chain, pelvic sidewall, or inguinal lymphadenopathy. Pelvic viscera: The bladder is normal as visualized, and filled with excreted IV contrast. The uterus and adnexa are normal as imaged. Skeletal structures: The skeletal structures are osteopenic. There is mild lumbosacral spondylosis. N o lytic or blastic lesions are seen. IMPRESSION: 1. There are numerous mildly enlarged retroperitoneal lymph nodes, as well as prominent gastrohepatic nodes. When compared to today's chest CT findings this likely represents metastatic disease. A large right supraclavicular node seen on today's chest CT would likely be amenable to percutaneous tissue sampling. 2. No additional findings are suspicious for intra-abdominal metastatic disease. 3. Moderate right pleural effusion with consolidation of the right lower lung. This may be malignant. 4. Moderate pericardial effusion. 5. Status post splenectomy, with splenules seen in the left upper quadrant. 6. Diverticulosis of the left colon without CT evidence of acute diverticulitis. 7. Additional findings as above. ACT 112: Negative or not required by law. Electronically signed by: Zach Pruett M.D. 10/13/2025 2:51 PM
--- NOTE | 2025-10-13 15:18 | Ultrasound Report ---
ULTRASOUND BILATERAL LOWER EXTREMITY VENOUS CLINICAL HISTORY: Leg pain COMPARISON STUDY: No priors TECHNIQUE: Real-time, grayscale, and color Doppler sonography of the deep veins of the right and left lower extremity was performed from the inguinal crease to the calf. Compression and augmentation wer e utilized. FINDINGS: Right lower extremity: There is occlusive deep venous thrombosis in the popliteal vein. This extends into the calf within the peroneal vein and one of the posterior tibial veins. The common femoral and superficial femoral veins are patent and normally compressible. The greater saphenous vein and the pr ofunda femoris vein at the junction with the common femoral vein are clear. Left lower extremity: There is occlusive deep venous thrombosis within the distal superficial femoral vein. The proximal and mid portions are patent and normally compressible, as are the common femoral and popliteal veins. The greater saphenous vein and the profunda femoris vein at the junction with th e common femoral vein are clear. The visualized calf veins are patent. IMPRESSION: Bilateral lower extremity deep venous thrombosis as above. ACT 112: Negative or not required by law. Electronically signed by: Zach Pruett M.D. 10/13/2025 3:16 PM
[2025-10-13 18:57] LABS: ANTI-Xa, UFH(UnfractionatedHep 0.18 IU/ml (0.3-0.7)
[2025-10-13] MEDS: HEPARIN SOD (PORCINE) 1000 UNIT/ML IV ONE (19:32)
[2025-10-13 22:10] LABS: Cdiff Toxin B Gene (2yr or >) Negative Cdiff Gene (Neg)
[2025-10-13 22:43] LABS: Adenovirus F 40/41 PCR Not Detected (NotDetected); Campylobacter PCR Not Detected (NotDetected); Enteroaggregative E.coli(EAEC) Not Detected (NotDetected); Shiga-like Toxin E.coli (STEC) Not Detected (NotDetected); Vibrio species PCR Not Detected (NotDetected)
[2025-10-13] MEDS: LOPERAMIDE HCL 2 MG CAP PO STA (22:53)
[2025-10-14 01:45] LABS: ANTI-Xa, UFH(UnfractionatedHep 0.59 IU/ml (0.3-0.7)
[2025-10-14 07:09] LABS: Hematocrit (blood only) 42.7 % (37.0-47.0); Hemoglobin 15.2 g/dL (12.0-16.0); Immature Granulocytes # (auto) 0.06 K/uL (0.01-0.20); Immature Granulocytes % (auto) 0.3 %; Mean Corpuscular Hemoglobin 29.6 pg (25.0-34.0); Mean Corpuscular Volume 83.1 fL (80.0-100.0); Platelet Count 281 K/uL (130-400); RDW Standard Deviation 40.8 fL (36.4-46.3); Red Blood Count 5.14 M/uL (4.20-5.40); White Blood Count 19.09 K/ul (4.8-10.8)
[2025-10-14 07:30] LABS: Anion Gap 8.0 (3-11); Blood Urea Nitrogen 8.0 mg/dl (6-23); Calcium 7.6 mg/dl (8.6-10.3); Carbon Dioxide 19.0 mmol/L (21-32); Chloride 111.0 mmol/L (98-107); Cholesterol 144.0 mg/dl (0-200); Creatinine Clr Calc Pharmacy 80.8 ml/min; Glucose 118.0 mg/dl (70-99(Fasting)); HDL Cholesterol 36.0 mg/dl; Potassium 3.8 mmol/L (3.5-5.1); Sodium 138.0 mmol/L (136-145); Triglycerides 96.0 mg/dl (0-150)
[2025-10-14 07:48] LABS: Hemoglobin A1C 5.1 % (4.5-5.6)
[2025-10-14 08:26] LABS: Lymphocytes, Fluid 69 %; Mono,Macrophage,Mesothelial 30 %; Neutrophils, Fluid 1 %
--- NOTE | 2025-10-14 14:21 | Pulmonology Progress Note ---
Date of Service October 14, 2025 Assessment & Plan (1) Brain mass: (2) Lung mass: (3) Pleural effusion: (4) Pulmonary emboli: (5) CVA (cerebral vascular accident): Plan Patient is a 75-year-old female who presented to the hospitalization for evaluation of right hand numbness and weakness. She had been experiencing the symptoms for approximately 2 weeks. Also had increasing shortness of breath for [address] of the head on admission was concerning for a left frontoparietal mass with vasogenic edema. The patient also underwent CT imaging of the chest which showed a large right upper lobe/hilar mass with extensive adenopathy and right pleural effusion. Left lower lobe subsegmental PE also identified. Heparin drip was initiated. Neurology and pulmonary were consulted. The patient was taken for MRI of the brain, this shows multiple areas of subacute infarcts concerning for embolic event. A 3 mm focus within the left occipital cortex also appreciated. CT abdomen pelvis shows numerous enlarged retroperitoneal lymph nodes as well as prominent gastrohepatic nodes. Ultrasound of lower extremity shows bilateral DVT (occlusive popliteal extending within the peroneal vein and posterior tibial on the right, occlusive DVT in distal superficial femoral on the left). Echocardiogram 10/13/2025, normal LV systolic function with EF of 55 to 60%, grade 1 diastolic dysfunction, moderate size pericardial effusion without tamponade physiology. Plan was for bronchoscopy however in light of the subacute strokes anesthesia did not want to proceed. Underwent right thoracentesis 10/13/2025, exudative and lymphocyte predominant, 69% lymphocytes, pleural LDH 515, serum 407, pleural protein 3.7, serum protein 5.6. Neurology was consulted, recommending heparin drip without bolus. Problem list: Lung mass Hilar and mediastinal adenopathy Enlarged right supraclavicular lymph node Right pleural effusion, status post thoracentesis 10/13/2025 Moderate pericardial effusion without tamponade physiology on echo Pulmonary embolism (subsegmental on the left) Bilateral lower extremity DVT CVA, likely embolic event given MRI findings Recommendation/plan: Patient has been continued on heparin drip. Lower extremity weakness that happened acutely yesterday has improved. She still has significant weakness of her right hand. Pleural effusion is concerning for malignant or para malignant, lymphocyte predominant, exudative. Cytology and cultures pending. She has some enlarged supraclavicular lymph nodes that would be amenable to an IR percutaneous biopsy however we do not have interventional radiology in house this week, scheduling has them out till Saturday of next week. Given her risk for anesthesia a percutaneous biopsy would be preferable as she would not have to have general anesthesia for this. I do think that the patient needs tissue diagnosis soon. I think she would [facility] with more services available including interventional radiology. She would need pulmonary consult, neurology and oncology consults at the outlying facility as well. Patient is agreeable to transfer, she would prefer to go to [facility]. Thank you for this consult. Pulmonary will continue to follow along with you. Other management per primary team and consultants. Admission and Anticipated Discharge Date Admission Date: October 13, 2025 Subjective Patient doing well this morning. She is on room air. Feels that her breathing is better. Multiple family members at bedside this morning. Discussed her pleural fluid results, it is exudative, lymphocyte predominant, likely malignant. Also explained that this fluid will likely recur in the future, she may require a repeat thoracentesis and eventually a PleurX catheter. We discussed the possibility of transfer as we do not have IR available for percutaneous biopsying of the supraclavicular lymph node. Patient is agreeable to transfer if this is available. Would prefer [facility]. Review of Systems Review of Systems: Negative except as in HPI Physical Exam Physical Exam: Physical examination: General: Well-appearing, appears stated age, nondistressed. HEENT: Normocephalic, atraumatic. Extraocular movements intact. Sclera are nonicteric. No JVD appreciated. Skin: Warm and dry. No rashes appreciated. No jaundice appreciated. Cardiovascular: Heart is a regular rate and rhythm, no murmurs appreciated on my exam. No significant lower extremity edema. Lungs: On room air, nontachypneic, good air movement bilaterally. No wheezing. Abdomen: Nondistended, nontender. Musculoskeletal: Normal muscle mass and tone. No gross joint deformity abnormalities. No effusions appreciated. Neurologic: Awake and alert, oriented. CN II through XII are grossly intact. Right hand numbness and weakness. No other focal neurologic deficits. Psychiatric: Appropriate cooperative during my exam. Results & Data Results & Data Vital Signs (Past 12 Hours) Vital Signs Temp Pulse Pulse Resp BP BP Pulse Ox 10/14/25 11:15 36.5 C 99 H 18 176/81 H 93 10/14/25 08:00 36.5 C 109 H 20 154/79 H 91 10/14/25 07:39 100 H 10/14/25 05:48 96 H 10/14/25 03:38 36.9 C 95 H 19 137/84 92 O2 Del Method O2 Flow Rate 10/14/25 11:15 Nasal Cannula 2 10/14/25 08:00 Room Air 10/14/25 07:39 10/14/25 05:48 10/14/25 03:38 Room Air PG Care Time/CCT Total # of Minutes Spent Total Time Spent with Patient: Total time spent is greater than 50% in coordination of care (as documented) at patient's floor/unit and/or counseling patient: [place] [address] SUB INP/OBS CARE 3/50MIN Patient Type Established History Detailed Exam Detailed Medical Decision Making Moderate Complexity Diagnoses Brain mass G93.89 Lung mass R91.8 Pleural effusion J90 Pulmonary emboli I26.99 CVA (cerebral vascular accident) I63.9
--- NOTE | 2025-10-14 14:22 | Hospitalist Progress Note ---
Date of Service October 14, 2025 Assessment & Plan (1) Stroke-like symptom: Plan: 75 yo F w/ PMH of HTN, HLD, osteoporosis, hereditary spherocytosis s/p splenectomy presents with strokelike symptoms. Pt c/o 1 d of N/T/Weakness of right sided extremities. Pt denies fever, cough, chest pain, headache, vision changes. Strokelike symptom Presents with right extremity weakness/numbness/tingling CTA head and neck with no hemodynamically significant stenosis CT head concerning for left frontoparietal vasogenic edema, metastatic/send versus ischemic changes. MRI brain with numerous small foci of acute to subacute infarcts throughout both cerebral and cerebellar hemispheres, suggestive of embolic event. No evidence of hemorrhage or mass effect. 3 mm cortical based foci of enhancement noted in the left occipital cortex and 6-month follow-up MRI is recommended. LDL 89, a1c 5.1 Patient with improving right extremity weakness/numbness/tingling. Discussed with neurology 10/13, continue with heparin drip Continue with neurochecks, follow-up with neurology upon discharge. Close monitoring and stat CT head / inform neuro for any changes in patient condition SP/PT/OT eval Lung mass Pleural effusion Pulmonary embolism, DVT Incidental finding of lung lesion in right upper lobe in CTA neck and right- sided pleural effusion. Patient denies any sore throat/cough/chest pain or shortness of breath at presentation. CTA chest: Approximately 61 times*9 x 42 mm sized lesion noted RUL, extending up to right hilum. Concern for left lower lobe pulmonary embolism. b/l Pulmonary congestion noted. Moderate right pleural effusion noted. Multiple enlarged lymph nodes noted. Venous Doppler BLE: +ve for ble dvt. CTAP: numerous mildly enlarged retroperitoneal lymph nodes, as well as prominent gastrohepatic nodes. When compared to this admission's chest CT findings this likely represents metastatic disease. A large right supraclavicular node seen on today's chest CT would likely be amenable to percutaneous tissue sampling. Pulmonology on board, s/p right-sided thoracentesis. recommends transfer to expedite cancer diagnosis, bronchoscopy not feasible due to anesthesia concerns. Continue with heparin drip Follow-up on pleural fluid studies - positive for light's criteria, f/u on cx and path result. Other chronic medical conditions: Continue with/resume home meds as and when able. Hypertensionfairly under control, continue home losartan. IV labetalol as needed to keep SBP less than 180. Hyperlipidemia: LDL 89, increase home atorvastatin to 80 mg. History of hereditary spherocytosis: S/p splenectomy DVT prophylaxis: Patient on low-dose heparin drip. Disposition: Continue with telemetry, transfer process has been initiated for markell wilcox, await call back. Full code Admission and Anticipated Discharge Date Admission Date: October 13, 2025 Subjective Patient was seen and examined at bedside. Patient's grand children at bedside, were updated on plan of care. Pt reports improving Rt extremities weakness. Pt's dtr Anita was given phone call and updated on new imaging findings and fur ther plan of care, answered all her questions. Patient denies any fever/sore throat/cough/chest pain/belly pain/nausea/vomiting/diarrhea/pain or burning while passing urine/headache/vision changes/dizziness. Physical Exam Physical Exam: General- Not in acute distress. Head- atraumatic Eyes- PERRL, EOMI. ENT- oropharynx clear Neck- supple, no JVD. Lungs- clear to auscultation no wheezing or crackles Heart- regular rhythm; no murmur, no gallop. Abdomen- normal bowel sounds, soft, nontender, no distension Extremities- no pretibial edema, no erythema seen Neuro- alert, oriented PERRL, EOMI; no facial palsy; no dysarthria; 5/5 Lt extremities, 4/5 Rt extremities. Right upper extremity pronator drift present, sensations intact, position sense intact. Skin- warm & dry Results & Data Results & Data Vital Signs (Past 12 Hours) Vital Signs Temp Pulse Pulse Resp BP BP Pulse Ox 10/14/25 11:15 36.5 C 99 H 18 176/81 H 93 10/14/25 08:00 36.5 C 109 H 20 154/79 H 91 10/14/25 07:39 100 H 10/14/25 05:48 96 H 10/14/25 03:38 36.9 C 95 H 19 137/84 92 O2 Del Method O2 Flow Rate 10/14/25 11:15 Nasal Cannula 2 10/14/25 08:00 Room Air 10/14/25 07:39 10/14/25 05:48 10/14/25 03:38 Room Air
--- NOTE | 2025-10-14 15:20 | Discharge Summary ---
Date of Service October 14, 2025 Admission HPI Per Admitting Provider 75-year-old female with past medical history significant for hypertension, hyperlipidemia, osteoporosis, hereditary spherocytosis, history of splenectomy presents with strokelike symptoms. Since last evening patient noticed right hand weakness and as was not getting better came to the ER. Patient is alert and oriented and able to give history. Family in the room. and daughter and son and son-in-law in the room. Patient denies any headache. No runny nose or sore throat. Has some dry cough. Lately has some shortness of breath. No fevers. Denies any chest pain. No nausea. No recent weight gain or weight loss. No abdominal pain. Normal bowel and bladder movements. Denies blood in the stools or black stools. No hematuria. Speech is okay. Past medical history. As mentioned above. Past surgical history. Cataract complex surgery. Colonoscopy. Cystoscopy. Splenectomy. Cholecystectomy. Social history. . Quit smoking 2006. Smoked 0.5 pack a day for 30 years. No alcohol use. No drug use. Family history. Father had bladder cancer. Mother had heart disorder. Brother had heart disorder. Admission Exam Per Admitting Provider General- Not in acute distress. Head- atraumatic Eyes- PERRL, EOMI. ENT- oropharynx clear Neck- supple, no JVD. Lungs- clear to auscultation no wheezing or crackles Heart- regular rhythm; no murmur, no gallop. Abdomen- normal bowel sounds, soft, nontender, no distension Extremities- no pretibial edema, no erythema seen Neuro- alert, oriented PERRL, EOMI; no facial palsy; no dysarthria; motor 5/5 all extremities except right upper extremity 2/5. Right upper extremity pronator drift present, sensations intact, position sense intact. Skin- warm & dry Principal Diagnosis Strokelike symptom Lung mass Pleural effusion Pulmonary embolism, DVT Suspicion for metastatic disease Discharge Exam General- Not in acute distress. Head- atraumatic Eyes- PERRL, EOMI. ENT- oropharynx clear Neck- supple, no JVD. Lungs- clear to auscultation no wheezing or crackles Heart- regular rhythm; no murmur, no gallop. Abdomen- normal bowel sounds, soft, nontender, no distension Extremities- no pretibial edema, no erythema seen Neuro- alert, oriented PERRL, EOMI; no facial palsy; no dysarthria; 5/5 Lt extremities, 4/5 Rt extremities. Right upper extremity pronator drift present, sensations intact, position sense intact. Skin- warm & dry Discharge Data Allergies Allergy/AdvReac Type Severity Reaction Status Date / Time No Known Allergies Allergy Unverified 08/14/25 11:48 Consultations 10/13/25 04:24 ED Decision to Admit Stat 10/13/25 08:00 Consult Neurology Routine Consult Pulmonology Routine 10/14/25 15:07 Burn CD for patient Stat Procedures Performed Operation Date: 10/13/25 09:30 <No data on this case meets the specified criteria> Ordered Studies 10/13/25 02:23 CT angio head w con Stat CT angio neck with con Stat CT head/brain wo con Stat 10/13/25 03:04 CT angio chest PE protocol Stat 10/13/25 05:30 MR brain wo/w con Urgent 10/13/25 07:32 US venous doppler LE BI Routine 10/13/25 07:58 CT Abd and Pelvis [CT abd pelvis oral and IV con] Routine Hospital Course (1) Stroke-like symptom: 75 yo F w/ PMH of HTN, HLD, osteoporosis, hereditary spherocytosis s/p splenectomy presents with strokelike symptoms. Pt c/o 1 d of N/T/Weakness of right sided extremities. Pt denies fever, cough, chest pain, headache, vision changes. Strokelike symptom Presents with right extremity weakness/numbness/tingling CTA head and neck with no hemodynamically significant stenosis CT head concerning for left frontoparietal vasogenic edema, metastatic/send v ersus ischemic changes. MRI brain with numerous small foci of acute to subacute infarcts throughout both cerebral and cerebellar hemispheres, suggestive of embolic event. No evidence of hemorrhage or mass effect. 3 mm cortical based foci of enhancement noted in the left occipital cortex and 6-month follow-up MRI is recommended. LDL 89, a1c 5.1 Patient with improving right extremity weakness/numbness/tingling. Discussed with neurology 10/13, continue with heparin drip Continue with neurochecks, follow-up with neurology upon discharge. Close monitoring and stat CT head / inform neuro for any changes in patient condition SP/PT/OT eval Lung mass Pleural effusion Pulmonary embolism, DVT Incidental finding of lung lesion in right upper lobe in CTA neck and right- sided pleural effusion. Patient denies any sore throat/cough/chest pain or shortness of breath at presentation. CTA chest: Approximately 61 times*9 x 42 mm sized lesion noted RUL, extending up to right hilum. Concern for left lower lobe pulmonary embolism. b/l Pulmonary congestion noted. Moderate right pleural effusion noted. Multiple enlarged lymph nodes noted. Venous Doppler BLE: +ve for ble dvt. CTAP: numerous mildly enlarged retroperitoneal lymph nodes, as well as prominent gastrohepatic nodes. When compared to this admission's chest CT findings this likely represents metastatic disease. A large right supraclavicular node seen on today's chest CT would likely be amenable to percutaneous tissue sampling. Pulmonology on board, s/p right-sided thoracentesis. recommends transfer to expedite cancer diagnosis, bronchoscopy not feasible due to anesthesia concerns. Continue with heparin drip during transfer process. Follow-up on pleural fluid studies - positive for light's criteria, f/u on cx and path result. Other chronic medical conditions: Continue with/resume home meds as and when able. Hypertensionfairly under control, continue home losartan. IV labetalol as needed to keep SBP less than 180. Hyperlipidemia: LDL 89, increase home atorvastatin to 80 mg. History of hereditary spherocytosis: S/p splenectomy DVT prophylaxis: Patient on low-dose heparin drip. Disposition: Pt accepted at [facility] for IR biopsy, awaiting transfer Full code Home Health Attestation I certify that this patient is under my care and that I, or a physicians office services assistant working with me, had a face to-face encounter that meets the home health keby-dp-dill encounter requirements with this patient. The encounter with the patient was in whole, or in part, for the following medical condition, which is the primary reason for home health care (list medical condition): I certify that, based on my findings, the following services are medically necessary home health services: My clinical findings support the need for the above services because: Further, I certify that my clinical findings support that this patient is homebound (i.e. absences from home require considerable and taxing effort and are for medical reasons or religion services or infrequently or of short duration when for other reasons) because: Certification for Home Health Services: Based on the above findings, I certify that this patient is confined to the home and needs intermittent custodial care, physical therapy and/or speech therapy or continues to need occupational therapy. The patient is under my care, and I have initiated the establishment of the plan of care. This patient will be followed by a physician who will periodically review the plan of care. Total Time Total Time Spent Total Time Spent (In Minutes): 45 Discharge Plan Discharge Items Patient Disposition: Transfer Acute Care Hospital Reason For Visit: STROKE LIKE SYMPTOMS, PE Discharge Diagnosis: Strokelike symptom Lung mass Pleural effusion Pulmonary embolism, DVT Suspicion for metastatic disease Condition on Discharge: Critical Activity: As commented below Activity Comment: Per tertiary [facility] recommendation Non-emergency contact: Primary Care Provider Call non-emergency contact if: you have any medication questions and your symptoms worsen Follow-up/Referrals: Ghislaine Cunningham DO [Primary Care Provider] - Diet: Regular Addtl Attending Provider Instructions: you are being transferred to [facility] for IR biopsy and oncology evaluation. Your inpatient medications are copied and pasted below here. Your outpatient medications are continued as it is for the sake of comparison at [facility]. Current Inpatient Medications Acetaminophen (Acetaminophen 325 Mg Tab) 650 mg PO Q4H PRN PRN Reason: Pain or Fever Stop: 11/12/25 06:16 Atorvastatin Calcium (Atorvastatin 40 Mg Tab) 80 mg PO DAILY MARCIE Stop: 11/14/25 08:59 Heparin Sodium/Dextrose (Heparin 00799 Unit/500 Ml D5w) 25,000 units in 500 mls @ 16 mls/hr IV .Q24H MARCIE; Protocol Stop: 11/12/25 06:16 Last Titration: 10/14/25 10:47 Dose: 800 units/hr, 16 mls/hr Labetalol HCl (Labetalol Hcl Iv 5 Mg/Ml 20ml) 10 mg IV Q4H PRN PRN Reason: Hypertension Stop: 11/12/25 06:16 Losartan Potassium (Losartan Potassium 50 Mg Tab) 100 mg PO DAILY MARCIE Stop: 11/12/25 08:59 Last Admin: 10/14/25 08:27 Dose: 100 mg Miscellaneous Information (Pharmacist Discharge Med Rec Consult) 1 each N/A UD PRN PRN Reason: Consult Stop: 11/12/25 06:16 Nitroglycerin (Nitroglycerin Sl 0.4 Mg/Tab Tab) 0.4 mg SL Q5M PRN PRN Reason: Chest Pain Stop: 11/12/25 06:16 Polyethylene Glycol (Polyethylene (Miralax) 17 Gm Pack) 17 gm PO DAILY PRN PRN Reason: Constipation Stop: 11/12/25 06:16 Vitamin D (Cholecalciferol 25 Mcg (1000 Units) Tab) 50 mcg PO DAILY MARCIE Stop: 11/12/25 08:59 Last Admin: 10/14/25 08:27 Dose: 50 mcg Pending Studies at Discharge: Yes Stand-Alone Forms: My [facility] 28msec, Medications to Prevent Stroke Skilled Items Patient informed of condition?: Yes DNR: No Discharge Level of Care: Other Communicable Disease: No Discharge Prognosis: Other Lines: Peripheral IV Urinary Catheter: No Medications and DC Order Prescriptions: Continued atorvastatin 40 mg tablet 40 mg PO DAILY aspirin 81 mg Tablet,Delayed Release (Dr/Ec) 81 mg PO DAILY hydroxyzine HCl 25 mg tablet 25 mg PO Q6H PRN (Reason: Itching) losartan 100 mg tablet 100 mg PO DAILY cholecalciferol (vitamin D3) [Vitamin D3] 50 mcg (2,000 unit) Capsule 50 mcg PO DAILY Krames/Other Patient Handouts: Apixaban Oral Tablet, Warfarin Oral Tablet, Rivaroxaban Oral Tablet Admission Data Admit Date/Time: 10/13/25 05:29 Attending Provider: Zehra Singleton Admit Provider: Moiz Olsen Primary Care Provider: Ghislaine Cunningham Other Providers: Moiz Olsen; Senait Preciaod; Mc Mejia; Senait Chacko; Braeden Sharma; Fitz Jaquez; Christopher Zarate; Rock Márquez; Aliyah Peña; Darshan Tabor; Braden Sandoval; Dieter Davila; Franki Henderson; Vida Young; Rock Holland; Laura Olson; Britni Bautista; Daljit Quintana; Nery Boss
[2025-10-14] MEDS: LABETALOL HCL IV 5 MG/ML 20ML IV PRN (15:28)
[2025-10-14] MEDS ORDERED: STROKE PATIENT DISCHARGE STA (17:35)
[2025-10-15 07:13] LABS: Hematocrit (blood only) 44.9 % (37.0-47.0); Hemoglobin 16.0 g/dL (12.0-16.0); Immature Granulocytes # (auto) 0.06 K/uL (0.01-0.20); Immature Granulocytes % (auto) 0.4 %; Mean Corpuscular Hemoglobin 29.1 pg (25.0-34.0); Mean Corpuscular Volume 81.8 fL (80.0-100.0); Platelet Count 319 K/uL (130-400); RDW Standard Deviation 39.8 fL (36.4-46.3); Red Blood Count 5.49 M/uL (4.20-5.40); White Blood Count 15.29 K/ul (4.8-10.8)
[2025-10-15 07:32] LABS: Anion Gap 9.0 (3-11); Blood Urea Nitrogen 8.0 mg/dl (6-23); Calcium 7.8 mg/dl (8.6-10.3); Carbon Dioxide 20.0 mmol/L (21-32); Chloride 110.0 mmol/L (98-107); Creatinine Clr Calc Pharmacy 82.2 ml/min; Glucose 112.0 mg/dl (70-99(Fasting)); Potassium 3.7 mmol/L (3.5-5.1); Sodium 139.0 mmol/L (136-145)
[2025-10-15 07:36] LABS: ANTI-Xa, UFH(UnfractionatedHep 0.49 IU/ml (0.3-0.7)
[2025-10-15] MEDS: ATORVASTATIN 40 MG TAB PO SCH (09:39)
--- NOTE | 2025-10-15 14:34 | Pulmonology Progress Note ---
Date of Service October 15, 2025 Assessment & Plan (1) Lung mass: (2) Adenocarcinoma of lung: (3) Malignant pleural effusion: (4) Pulmonary emboli: (5) CVA (cerebral vascular accident): (6) DVT (deep venous thrombosis): Plan Patient is a 75-year-old female who presented to the hospitalization for evaluation of right hand numbness and weakness. She had been experiencing the symptoms for approximately 2 weeks. Also had increasing shortness of breath for [address] of the head on admission was concerning for a left frontoparietal mass with vasogenic edema. The patient also underwent CT imaging of the chest which showed a large right upper lobe/hilar mass with extensive adenopathy and right pleural effusion. Left lower lobe subsegmental PE also identified. Heparin drip was initiated. Neurology and pulmonary were consulted. The patient was taken for MRI of the brain, this shows multiple areas of subacute infarcts concerning for embolic event. A 3 mm focus within the left occipital cortex also appreciated. CT abdomen pelvis shows numerous enlarged retroperitoneal lymph nodes as well as prominent gastrohepatic nodes. Ultrasound of lower extremity shows bilateral DVT (occlusive popliteal extending within the peroneal vein and posterior tibial on the right, occlusive DVT in distal superficial femoral on the left). Echocardiogram 10/13/2025, normal LV systolic function with EF of 55 to 60%, grade 1 diastolic dysfunction, moderate size pericardial effusion without tamponade physiology. Plan was for bronchoscopy however in light of the subacute strokes anesthesia did not want to proceed. Underwent right thoracentesis 10/13/2025, exudative and lymphocyte predominant, 69% lymphocytes, pleural LDH 515, serum 407, pleural protein 3.7, serum protein 5.6. - Cytology showing metastatic adenocarcinoma consistent with metastatic adenocarcinoma of lung primary origin. Neurology was consulted, recommending heparin drip without bolus. Problem list: Lung mass Hilar and mediastinal adenopathy Enlarged right supraclavicular lymph node Malignant right pleural effusion with adenocarcinoma Moderate pericardial effusion without tamponade physiology on echo Pulmonary embolism (subsegmental on the left) Bilateral lower extremity DVT CVA, likely embolic event given MRI findings Recommendation/plan: Patient has been continued on heparin drip. Lower extremity weakness that happened acutely yesterday has improved. She still has significant weakness of her right hand. Pleural effusion came back as adenocarcinoma. I discussed the results with the family. Will likely require more tissue sampling for further testing, I am reaching out to oncology to confirm this. She has some enlarged supraclavicular lymph nodes that would be amenable to an IR percutaneous biopsy however we do not have interventional radiology in house this week, scheduling has them out till Saturday of next week. Given her risk for anesthesia a percutaneous biopsy would be preferable as she would not have to have general anesthesia for this. The patient has been accepted at [facility]. Still awaiting a bed. Thank you for this consult. Pulmonary will continue to follow along with you. Other management per primary team and consultants. Admission and Anticipated Discharge Date Admission Date: October 13, 2025 Subjective Patient is doing well today. No shortness of breath. No orthopnea. Still on heparin drip. She was accepted at [facility], was post to leave last night however due to traumas she did not go. Was supposed to again leave this morning and she did not leave. Patient and family are little bit frustrated with this. Her pathology did come back with adenocarcinoma, lung primary. I informed her and her family of this. Review of Systems Review of Systems: Negative except as in HPI Physical Exam Physical Exam: Physical examination: General: Well-appearing, appears stated age, nondistressed. HEENT: Normocephalic, atraumatic. Extraocular movements intact. Sclera are nonicteric. No JVD appreciated. Skin: Warm and dry. No rashes appreciated. No jaundice appreciated. Cardiovascular: Heart is a regular rate and rhythm, no murmurs appreciated on my exam. No significant lower extremity edema. Lungs: On room air, nontachypneic, good air movement bilaterally. No wheezing. Abdomen: Nondistended, nontender. Musculoskeletal: Normal muscle mass and tone. No gross joint deformity abnormalities. No effusions appreciated. Neurologic: Awake and alert, oriented. CN II through XII are grossly intact. Right hand numbness and weakness. No other focal neurologic deficits. Psychiatric: Appropriate cooperative during my exam. Results & Data Results & Data Vital Signs (Past 12 Hours) Vital Signs Temp Pulse Pulse Resp BP BP Pulse Ox 10/15/25 11:32 36.7 C 101 H 17 153/84 H 94 10/15/25 09:05 110 H 10/15/25 07:28 36.9 C 106 H 19 181/84 H 95 10/15/25 03:18 36.6 C 99 H 21 144/76 H 92 O2 Del Method 10/15/25 11:32 Room Air 10/15/25 09:05 10/15/25 07:28 Room Air 10/15/25 03:18 Room Air PG Care Time/CCT Total # of Minutes Spent Total Time Spent with Patient: Total time spent is greater than 50% in coordination of care (as documented) at patient's floor/unit and/or counseling patient: Coding Level of Care Code 34209 SUB INP/OBS CARE 2/35MIN Diagnoses Lung mass R91.8 Adenocarcinoma of lung C34.90 Malignant pleural effusion J91.0 Pulmonary emboli I26.99 CVA (cerebral vascular accident) I63.9 DVT (deep venous thrombosis) I82.409
--- NOTE | 2025-10-15 15:48 | Hospitalist Progress Note ---
Date of Service October 15, 2025 Assessment & Plan (1) Stroke-like symptom: Plan: 75 yo F w/ PMH of HTN, HLD, osteoporosis, hereditary spherocytosis s/p splenectomy presents with strokelike symptoms. Pt c/o 1 d of N/T/Weakness of right sided extremities. Pt denies fever, cough, chest pain, headache, vision changes. Strokelike symptom Presents with right extremity weakness/numbness/tingling CTA head and neck with no hemodynamically significant stenosis CT head concerning for left frontoparietal vasogenic edema, metastatic/send versus ischemic changes. MRI brain with numerous small foci of acute to subacute infarcts throughout both cerebral and cerebellar hemispheres, suggestive of embolic event. No evidence of hemorrhage or mass effect. 3 mm cortical based foci of enhancement noted in the left occipital cortex and 6-month follow-up MRI is recommended. LDL 89, a1c 5.1 Patient with improving right extremity weakness/numbness/tingling. Discussed with neurology 10/13, continue with heparin drip Continue with neurochecks, follow-up with neurology upon discharge. Close monitoring and stat CT head / inform neuro for any changes in patient condition SP/PT/OT eval Lung mass, Adenocarcinoma Malignant right pleural effusion Pulmonary embolism, DVT Incidental finding of lung lesion in right upper lobe in CTA neck and right- sided pleural effusion. Patient denies any sore throat/cough/chest pain or shortness of breath at presentation. CTA chest: Approximately 61 times*9 x 42 mm sized lesion noted RUL, extending up to right hilum. Concern for left lower lobe pulmonary embolism. b/l Pulmonary congestion noted. Moderate right pleural effusion noted. Multiple enlarged lymph nodes noted. Venous Doppler BLE: +ve for ble dvt. CTAP: numerous mildly enlarged retroperitoneal lymph nodes, as well as prominent gastrohepatic nodes. When compared to this admission's chest CT findings this likely represents metastatic disease. A large right supraclavicular node seen on today's chest CT would likely be amenable to percutaneous tissue sampling. Pulmonology on board, s/p right-sided thoracentesis. recommends transfer, pt will require more tissue sampling for further testing, bronchoscopy not feasible due to anesthesia concerns. Continue with heparin drip during transfer process. Follow-up on pleural fluid studies - positive for light's criteria, f/u on cx result. Path +ve for Metastatic adenocarcinoma consistent with metastatic adenocarcinoma of pulmonary origin Other chronic medical conditions: Continue with/resume home meds as and when able. Hypertensionfairly under control, continue home losartan. IV labetalol as needed to keep SBP less than 180. Hyperlipidemia: LDL 89, increase home atorvastatin to 80 mg. History of hereditary spherocytosis: S/p splenectomy DVT prophylaxis: Patient on low-dose heparin drip. Disposition: Pt accepted at [facility] for IR biopsy, awaiting transfer Full code Admission and Anticipated Discharge Date Admission Date: October 13, 2025 Subjective Patient was seen and examined at bedside. Patient's dtr and at bedside, were updated on plan of care. Pt reports improving Rt extremities weakness, ilene RLE Patient denies any fever/sore throat/cough/chest pain/belly pain/nausea/vomiting/diarrhea/pain or burning while passing urine/headache/vision changes/dizziness. Physical Exam Physical Exam: General- Not in acute distress. Head- atraumatic Eyes- PERRL, EOMI. ENT- oropharynx clear Neck- supple, no JVD. Lungs- clear to auscultation no wheezing or crackles Heart- regular rhythm; no murmur, no gallop. Abdomen- normal bowel sounds, soft, nontender, no distension Extremities- no pretibial edema, no erythema seen Neuro- alert, oriented PERRL, EOMI; no facial palsy; no dysarthria; 5/5 Lt extremities, 4-5/5 Rt extremities. Right upper extremity pronator drift present, sensations intact, position sense intact. Skin- warm & dry Results & Data Results & Data Vital Signs (Past 12 Hours) Vital Signs Temp Pulse Pulse Resp BP Pulse Ox O2 Del Method 10/15/25 11:32 36.7 C 101 H 17 153/84 H 94 Room Air 10/15/25 09:05 110 H 10/15/25 07:28 36.9 C 106 H 19 181/84 H 95 Room Air
[2025-10-16 03:28] VITALS: TEMP 97.9
[2025-10-16 05:57] LABS: Hematocrit (blood only) 45.4 % (37.0-47.0); Hemoglobin 16.1 g/dL (12.0-16.0); Immature Granulocytes # (auto) 0.05 K/uL (0.01-0.20); Immature Granulocytes % (auto) 0.4 %; Mean Corpuscular Hemoglobin 29.0 pg (25.0-34.0); Mean Corpuscular Volume 81.7 fL (80.0-100.0); Platelet Count 367 K/uL (130-400); RDW Standard Deviation 39.7 fL (36.4-46.3); Red Blood Count 5.56 M/uL (4.20-5.40); White Blood Count 13.97 K/ul (4.8-10.8)
[2025-10-16 06:14] LABS: Anion Gap 9.0 (3-11); Blood Urea Nitrogen 8.0 mg/dl (6-23); Calcium 8.2 mg/dl (8.6-10.3); Carbon Dioxide 21.0 mmol/L (21-32); Chloride 109.0 mmol/L (98-107); Creatinine Clr Calc Pharmacy 70.5 ml/min; Glucose 125.0 mg/dl (70-99(Fasting)); Potassium 3.9 mmol/L (3.5-5.1); Sodium 139.0 mmol/L (136-145)
[2025-10-16 06:23] LABS: ANTI-Xa, UFH(UnfractionatedHep 0.41 IU/ml (0.3-0.7)
[2025-10-16 07:33] VITALS: PULSE 93; RESP 17; O2SAT 94
[2025-10-16] MEDS: APIXABAN 5 MG TABLET PO SCH (09:19)
[2025-10-16 10:13] VITALS: BP 156/82
--- NOTE | 2025-10-16 10:16 | Discharge Summary ---
Date of Service October 16, 2025 Admission HPI Per Admitting Provider 75-year-old female with past medical history significant for hypertension, hyperlipidemia, osteoporosis, hereditary spherocytosis, history of splenectomy presents with strokelike symptoms. Since last evening patient noticed right hand weakness and as was not getting better came to the ER. Patient is alert and oriented and able to give history. Family in the room. and daughter and son and son-in-law in the room. Patient denies any headache. No runny nose or sore throat. Has some dry cough. Lately has some shortness of breath. No fevers. Denies any chest pain. No nausea. No recent weight gain or weight loss. No abdominal pain. Normal bowel and bladder movements. Denies blood in the stools or black stools. No hematuria. Speech is okay. Past medical history. As mentioned above. Past surgical history. Cataract complex surgery. Colonoscopy. Cystoscopy. Splenectomy. Cholecystectomy. Social history. . Quit smoking 2006. Smoked 0.5 pack a day for 30 years. No alcohol use. No drug use. Family history. Father had bladder cancer. Mother had heart disorder. Brother had heart disorder. Admission Exam Per Admitting Provider General- Not in acute distress. Head- atraumatic Eyes- PERRL, EOMI. ENT- oropharynx clear Neck- supple, no JVD. Lungs- clear to auscultation no wheezing or crackles Heart- regular rhythm; no murmur, no gallop. Abdomen- normal bowel sounds, soft, nontender, no distension Extremities- no pretibial edema, no erythema seen Neuro- alert, oriented PERRL, EOMI; no facial palsy; no dysarthria; motor 5/5 all extremities except right upper extremity 2/5. Right upper extremity pronator drift present, sensations intact, position sense intact. Skin- warm & dry Principal Diagnosis Strokelike symptom Lung mass Pleural effusion Pulmonary embolism, DVT Suspicion for metastatic disease Discharge Exam General- Not in acute distress. Head- atraumatic Eyes- PERRL, EOMI. ENT- oropharynx clear Neck- supple, no JVD. Lungs- clear to auscultation no wheezing or crackles Heart- regular rhythm; no murmur, no gallop. Abdomen- normal bowel sounds, soft, nontender, no distension Extremities- no pretibial edema, no erythema seen Neuro- alert, oriented PERRL, EOMI; no facial palsy; no dysarthria; 5/5 Lt extremities, 4-5/5 Rt extremities. Right upper extremity pronator drift present, sensations intact, position sense intact. Skin- warm & dry Discharge Data Allergies Allergy/AdvReac Type Severity Reaction Status Date / Time No Known Allergies Allergy Unverified 08/14/25 11:48 Consultations 10/13/25 04:24 ED Decision to Admit Stat 10/13/25 08:00 Consult Neurology Routine Consult Pulmonology Routine 10/14/25 15:07 Burn CD for patient Stat Procedures Performed Operation Date: 10/13/25 09:30 <No data on this case meets the specified criteria> Ordered Studies 10/13/25 02:23 CT angio head w con Stat CT angio neck with con Stat CT head/brain wo con Stat 10/13/25 03:04 CT angio chest PE protocol Stat 10/13/25 05:30 MR brain wo/w con Urgent 10/13/25 07:32 US venous doppler LE BI Routine 10/13/25 07:58 CT Abd and Pelvis [CT abd pelvis oral and IV con] Routine Hospital Course (1) Adenocarcinoma of lung: (2) Stroke-like symptom: Plan 75 yo F w/ PMH of HTN, HLD, osteoporosis, hereditary spherocytosis s/p splenectomy presents with strokelike symptoms. Pt c/o 1 d of N/T/Weakness of right sided extremities. Pt denies fever, cough, chest pain, headache, vision changes. Strokelike symptom Presents with right extremity weakness/numbness/tingling CTA head and neck with no hemodynamically significant stenosis CT head concerning for left frontoparietal vasogenic edema, metastatic/send versus ischemic changes. MRI brain with numerous small foci of acute to subacute infarcts throughout both cerebral and cerebellar hemispheres, suggestive of embolic event. No evidence of hemorrhage or mass effect. 3 mm cortical based foci of enhancement noted in the left occipital cortex and 6-month follow-up MRI is recommended. LDL 89, a1c 5.1 Patient with improving right extremity weakness/numbness/tingling. Discussed with neurology 10/13 and 10/16, plan to dc aspirin. Pt will be on eliquis given blood clot. c/w home PT, f/u w/ neuro in 2-4 weeks time of dc, pt and her dtr/ made aware. Lung mass, Adenocarcinoma Malignant right pleural effusion Pulmonary embolism, DVT Incidental finding of lung lesion in right upper lobe in CTA neck and right- sided pleural effusion. Patient denies any sore throat/cough/chest pain or shortness of breath at presentation. CTA chest: Approximately 61 times*9 x 42 mm sized lesion noted RUL, extending up to right hilum. Concern for left lower lobe pulmonary embolism. b/l Pulmonary congestion noted. Moderate right pleural effusion noted. Multiple enlarged lymph nodes noted. Venous Doppler BLE: +ve for ble dvt. CTAP: numerous mildly enlarged retroperitoneal lymph nodes, as well as prominent gastrohepatic nodes. When compared to this admission's chest CT findings this likely represents metastatic disease. A large right supraclavicular node seen on today's chest CT would likely be amenable to percutaneous tissue sampling. Pulmonology on board, s/p right-sided thoracentesis. Continue with heparin drip during transfer process. Follow-up on pleural fluid studies - positive for light's criteria, f/u on cx result. Path +ve for Metastatic adenocarcinoma consistent with metastatic adenocarcinoma of pulmonary origin Other chronic medical conditions: Continue with/resume home meds as and when able. Hypertensionrunning slightly higher, continue home losartan. Pt and her dtr made aware of need for adjustment of BP meds, they prefer to do so w/ PCP office, advised them to maintain log to take to pcp and discuss during visit within a week of discharge. Hyperlipidemia: LDL 89, increase home atorvastatin to 80 mg. they are aware. History of hereditary spherocytosis: S/p splenectomy DVT prophylaxis: Patient on low-dose heparin drip. Disposition: home w/ HH Full code Patient is being discharged to home with home health with following instructions at the point of discharge: Follow-up with your primary care physician within a week time and likely you will need labs CBC/CMP/magnesium/phosphorus. You were diagnosed with stroke, neurology doctor evaluated you, since you will be on blood thinner Dorisqubijan recommend that you stop taking your home aspirin. Follow-up with neurology in 2 to 4 weeks time upon discharge. Continue with physical therapy at home. You are also noted to have adenocarcinoma of the lung with metastasis. Recommend that you establish with oncology in 1 to 2 weeks time upon discharge for further management and guidance, coordinate with your PCP office to set up the referral. Recommend that you follow-up with pulmonology as outpatient in 2 to 4 weeks time upon discharge. You are also noted to have blood clot, you have been discharged on Eliquis. Your Eliquis has been started from morning of 10/16/2025. You are directed to take 10 mg Eliquis twice a day for 7 days followed by 5 mg twice a day thereafter. As discussed at the bedside, measure your blood pressure twice a day, maintain a log to take to your primary care physician so that your blood pressure management can be appropriately carried out. Taking medications as prescribed. Please make sure that you are able to get your medications today by calling your pharmacy before you leave the hospital so that your treatment continuity is not broken. Home Health Attestation I certify that this patient is under my care and that I, or a physicians quality control assistant working with me, had a face to-face encounter that meets the home health [id number]-lize encounter requirements with this patient. The encounter with the patient was in whole, or in part, for the following medical condition, which is the primary reason for home health care (list medical condition): I certify that, based on my findings, the following services are medically necessary home health services: My clinical findings support the need for the above services because: Further, I certify that my clinical findings support that this patient is homebound (i.e. absences from home require considerable and taxing effort and are for medical reasons or rastafari services or infrequently or of short duration when for other reasons) because: Certification for Home Health Services: Based on the above findings, I certify that this patient is confined to the home and needs intermittent chcf care, physical therapy and/or speech therapy or continues to need occupational therapy. The patient is under my care, and I have initiated the establishment of the plan of care. This patient will be followed by a physician who will periodically review the plan of care. Total Time Total Time Spent Total Time Spent (In Minutes): 40 Discharge Plan Discharge Items Patient Disposition: Home - Home Health Services Reason For Visit: STROKE LIKE SYMPTOMS, PE Discharge Diagnosis: Strokelike symptom Lung mass Pleural effusion Pulmonary embolism, DVT Suspicion for metastatic disease Condition on Discharge: Critical Activity: Resume your previous activity Activity Comment: Non-emergency contact: Primary Care Provider Call non-emergency contact if: you have any medication questions and your symptoms worsen Follow-up/Referrals: Ghislaine Cunningham, DO [Primary Care Provider] - Jacque Andrew MD [Physician] - 11/01/25 (needs x-ray ) Diet: Regular Ambulatory Orders: XR chest 2V PA/lateral (Routine) Timeframe: 2 Weeks Facility: [facility] - Location: Radiology Main [place] Ordered By: Jacque Lr Attending Provider Instructions: Follow-up with your primary care physician within a week time and likely you will need labs CBC/CMP/magnesium/phosphorus. You were diagnosed with stroke, neurology doctor evaluated you, since you will be on blood thinner Eliquis recommend that you stop taking your home aspirin. Follow-up with neurology in 2 to 4 weeks time upon discharge. Continue with physical therapy at home. You are also noted to have adenocarcinoma of the lung with metastasis. Recommend that you establish with oncology in 1 to 2 weeks time upon discharge for further management and guidance, coordinate with your PCP office to set up the referral. Recommend that you follow-up with pulmonology as outpatient in 2 to 4 weeks time upon discharge. You are also noted to have blood clot, you have been discharged on Eliquis. Your Eliquis has been started from morning of 10/16/2025. You are directed to take 10 mg Eliquis twice a day for 7 days followed by 5 mg twice a day thereafter. As discussed at the bedside, measure your blood pressure twice a day, maintain a log to take to your primary care physician so that your blood pressure management can be appropriately carried out. Taking medications as prescribed. Please make sure that you are able to get your medications today by calling your pharmacy before you leave the hospital so that your treatment continuity is not broken. Pending Studies at Discharge: Yes Stand-Alone Forms: My [facility], Smoking Cessation, Medications to Prevent Stroke Medications and DC Order Prescriptions: New Eliquis 5 mg Tablet 10 mg PO UD Qty: 74 0RF Rx Instructions: 2 tabs twice a day for 7 days, then 1 tab twice a day thereafter atorvastatin 80 mg tablet 80 mg PO DAILY Qty: 30 0RF Continued hydroxyzine HCl 25 mg tablet 25 mg PO Q6H PRN (Reason: Itching) losartan 100 mg tablet 100 mg PO DAILY cholecalciferol (vitamin D3) [Vitamin D3] 50 mcg (2,000 unit) Capsule 50 mcg PO DAILY Discontinued atorvastatin 40 mg tablet 40 mg PO DAILY aspirin 81 mg Tablet,Delayed Release (Dr/Ec) 81 mg PO DAILY Discharge Orders: Discharge Order (Routine); Ordered 10/14/25 Ordered By: Zehra Gotti/Other Patient Handouts: Apixaban Oral Tablet, Warfarin Oral Tablet, Rivaroxaban Oral Tablet, Risk Factors for Stroke Admission Data Admit Date/Time: 10/13/25 05:29 Attending Provider: Zehra Singleton Admit Provider: Moiz Olsen Primary Care Provider: Ghislaine Cunningham Other Providers: Moiz Olsen; Senait Preciado; Mc Mejia; Senait Chacko; Braeden Sharma; Fitz Jaquez; Christopher Zarate; Rock Márquez; Aliyah Peña; Darshan Tabor; Braden Sandoval; Dieter Davila; Franki Henderson; Vida Young; Rock Holland; Laura Olson; Britni Bautista; Daljit Quintana; Nery Boss
--- NOTE | 2025-10-16 13:53 | Pulmonology Progress Note ---
Date of Service October 16, 2025 Assessment & Plan (1) Lung mass: (2) Adenocarcinoma of lung: (3) Malignant pleural effusion: (4) Pulmonary emboli: (5) CVA (cerebral vascular accident): (6) DVT (deep venous thrombosis): Plan Patient is a 75-year-old female who presented to the hospitalization for evaluation of right hand numbness and weakness. She had been experiencing the symptoms for approximately 2 weeks. Also had increasing shortness of breath for [address] of the head on admission was concerning for a left frontoparietal mass with vasogenic edema. The patient also underwent CT imaging of the chest which showed a large right upper lobe/hilar mass with extensive adenopathy and right pleural effusion. Left lower lobe subsegmental PE also identified. Heparin drip was initiated. Neurology and pulmonary were consulted. The patient was taken for MRI of the brain, this shows multiple areas of subacute infarcts concerning for embolic event. A 3 mm focus within the left occipital cortex also appreciated. CT abdomen pelvis shows numerous enlarged retroperitoneal lymph nodes as well as prominent gastrohepatic nodes. Ultrasound of lower extremity shows bilateral DVT (occlusive popliteal extending within the peroneal vein and posterior tibial on the right, occlusive DVT in distal superficial femoral on the left). Echocardiogram 10/13/2025, normal LV systolic function with EF of 55 to 60%, grade 1 diastolic dysfunction, moderate size pericardial effusion without tamponade physiology. Plan was for bronchoscopy however in light of the subacute strokes anesthesia did not want to proceed. Underwent right thoracentesis 10/13/2025, exudative and lymphocyte predominant, 69% lymphocytes, pleural LDH 515, serum 407, pleural protein 3.7, serum protein 5.6. - Cytology showing metastatic adenocarcinoma consistent with metastatic adenocarcinoma of lung primary origin. Neurology was consulted, recommending heparin drip without bolus. Problem list: Lung mass Hilar and mediastinal adenopathy Enlarged right supraclavicular lymph node Malignant right pleural effusion with adenocarcinoma Moderate pericardial effusion without tamponade physiology on echo Pulmonary embolism (subsegmental on the left) Bilateral lower extremity DVT CVA, likely embolic event given MRI findings Recommendation/plan: I discussed the case with oncology, given that we were able to identify adenocarcinoma of lung primary origin they do not believe that additional tissue biopsy is necessary at this time. At this point I do not see an indication to transfer her given that we do not need further biopsies. The patient can be discharged to home from a pulmonary standpoint. Recommend following up with neurology on anticoagulation recommendation. The patient should follow-up with myself in clinic in approximately 2 weeks. We will need an x-ray at that time. Order was placed and printed to floor. Pleural fluid may reaccumulate. May require future thoracentesis or PleurX catheter insertion. Patient needs to be referred to oncology, she wants to see [facility] oncology. This should happen soon if possible. Patient and family were updated on plan of care. They are in agreement. All questions addressed. Primary physician (hospitalist) was updated. Bedside RN was also updated. Thank you for this consult. Pulmonary will sign off and follow-up in the outpatient setting. Please call directly with any questions. Admission and Anticipated Discharge Date Admission Date: October 13, 2025 Subjective Patient is feeling well this morning. No shortness of breath. Remains on room air. No orthopnea appreciated. Still on heparin infusion. Review of Systems Review of Systems: Negative except as in HPI Physical Exam Physical Exam: Physical examination: General: Well-appearing, appears stated age, nondistressed. HEENT: Normocephalic, atraumatic. Extraocular movements intact. Sclera are nonicteric. No JVD appreciated. Skin: Warm and dry. No rashes appreciated. No jaundice appreciated. Cardiovascular: Heart is a regular rate and rhythm, no murmurs appreciated on my exam. No significant lower extremity edema. Lungs: On room air, nontachypneic, good air movement bilaterally. No wheezing. Abdomen: Nondistended, nontender. Musculoskeletal: Normal muscle mass and tone. No gross joint deformity abnormalities. No effusions appreciated. Neurologic: Awake and alert, oriented. CN II through XII are grossly intact. Right hand numbness and weakness. No other focal neurologic deficits. Psychiatric: Appropriate cooperative during my exam. Results & Data Results & Data Vital Signs (Past 12 Hours) Vital Signs Temp Pulse Pulse Resp BP BP Pulse Ox 10/16/25 10:24 36.6 C 93 H 17 156/82 H 168/76 H 94 10/16/25 10:22 36.6 C 93 H 17 156/82 H 168/76 H 94 10/16/25 10:12 36.6 C 93 H 17 156/82 H 168/76 H 94 10/16/25 07:32 36.6 C 93 H 17 168/76 H 94 10/16/25 07:00 92 H 10/16/25 03:27 36.6 C 95 H 18 156/79 H 92 O2 Del Method 10/16/25 10:24 10/16/25 10:22 10/16/25 10:12 10/16/25 07:32 Room Air 10/16/25 07:00 10/16/25 03:27 Room Air PG Care Time/CCT Total # of Minutes Spent Total Time Spent with Patient: Total time spent is greater than 50% in coordination of care (as documented) at patient's floor/unit and/or counseling patient: C[place] [address] SUB INP/OBS CARE 2/35MIN Patient Type Established History Detailed Exam Detailed Medical Decision Making Moderate Complexity Diagnoses Lung mass R91.8 Adenocarcinoma of lung C34.90 Malignant pleural effusion J91.0 Pulmonary emboli I26.99 CVA (cerebral vascular accident) I63.9 DVT (deep venous thrombosis) I82.409
== END 2025-10-16 11:46 | disposition home health service (06) | DRG 64 ==
LOC: ED 01:57 → EDINP 05:29 → 2S 06:17